=== PATIENT | female | born 1945 | race Caucasian/White ===

== ENCOUNTER 2020-04-16 09:18 | Inpatient (IN) ==
[2020-04-16] MEDS ORDERED: dilTIAZem HCl 5 MG/ML 5 ML VIAL IV STA ×2 (10:14→10:34)
[2020-04-16] MEDS ORDERED: STAT IV Infusion **Titration per Protocol STA (10:14)
[2020-04-16] MEDS ORDERED: dilTIAZem HCL 125 MG in DEXTROSE 5% 100 ML IV SCH ×2 (10:15→10:45)
[2020-04-16 10:36] LABS: Basophils # (auto) 0.03 K/uL (0-0.2); Basophils % (auto) 0.4 %; Eosinophils # (auto) 0.21 K/uL (0-0.5); Eosinophils % (auto) 2.5 %; Hematocrit (blood only) 40.5 % (37-47); Hemoglobin 13.4 g/dL (12.0-16.0); Immature Granulocytes # (auto) 0.02 K/uL (0.00-0.02); Immature Granulocytes % (auto) 0.2 %; Lymphocytes # (auto) 1.51 K/uL (1.2-3.4); Lymphocytes % (auto) 18.2 %; Mean Corpuscular Hemoglobin 31.6 pg (25-34); Mean Corpuscular Hgb Conc 33.1 g/dL (32-36); Mean Corpuscular Volume 95.5 fL (80-100); Mean Platelet Volume 10.3 fL (7.4-10.4); Monocytes # (auto) 0.81 K/uL (0.11-0.59); Monocytes % (auto) 9.8 %; Neutrophils # (auto) 5.72 K/uL (1.4-6.5); Neutrophils % (auto) 68.9 %; Platelet Count 292 K/uL (130-400); RDW Coefficient of Variation 13.4 % (11.5-14.5); RDW Standard Deviation 46.9 fL (36.4-46.3); Red Blood Count 4.24 M/uL (4.2-5.4)
[2020-04-16 10:44] LABS: Albumin Level 2.3 gm/dl (3.4-5.0); BUN Creatinine Ratio 25.7 (10-20); Calcium 8.5 mg/dl (8.5-10.1); Creatinine Clr Calc Pharmacy 54.3 ml/min; Est GFR (African American) 75.5; Est GFR (Non-African American) 65.2; Magnesium 1.9 mg/dl (1.8-2.4); Potassium 3.6 mmol/L (3.5-5.1)
[2020-04-16 10:55] LABS: Albumin Globulin Ratio 0.6 (0.9-2); Bilirubin,Total 0.3 mg/dl (0.2-1); Globulin 3.8 gm/dl (2.5-4.0); Thyroid Stimulating Hormone 7.03 uIu/ml (0.300-4.500); Total Protein 6.1 gm/dl (6.4-8.2); Troponin I 0.025 ng/ml (0-0.045)
[2020-04-16 11:12] LABS: T4 Free Thyroxine 1.17 ng/dl (0.8-1.6)
--- NOTE | 2020-04-16 11:26 | XRay Report ---
XR chest 1V portable HISTORY: 74 years-old Female palpitations, htn acute chest pain with cardiac palpitations COMPARISON: Chest radiograph 01/09/2020 TECHNIQUE: Portable AP view of the chest FINDINGS: Cardiomediastinal and hilar silhouettes are within normal limits. Small left pleural effusion with le ft lung base airspace opacities. No pneumothorax or overt pulmonary edema. The right lung is clear. D egenerative changes of the left shoulder and spine. IMPRESSION: Small left pleural effusion with left lung base airspace opacities suspicious for pneumon ia. ACT 112: Negative or not required by law. The above report was generated using voice recognition software. It may contain grammatical, syntax o r spelling errors. Electronically signed by: Nura Velarde M.D. 04/16/2020 11:24 AM
--- NOTE | 2020-04-16 12:02 | Electrocardiogram Report ---
Test Reason : Blood Pressure : / mmHG Vent. Rate : 118 BPM Atrial Rate : 120 BPM P-R Int : 000 ms QRS Dur : 086 ms QT Int : 310 ms P-R-T Axes : 000 038 021 degrees QTc Int : 434 ms Atrial fibrillation with rapid ventricular response Poor R wave progression, consider anterior UT vs. lead placement vs. LVH Abnormal ECG When compared with ECG of 09-JAN-2020 15:31, Atrial fibrillation has replaced Sinus rhythm Vent. rate has increased BY 59 BPM Nonspecific T wave abnormality now evident in Inferior leads Confirmed by Nehemiah Han ([id number]) on 04/16/2020 12:02:05 PM Referred By: REFERRED SELF Confirmed By:Nehemiah Han
--- NOTE | 2020-04-16 12:53 | Emergency Department Note ---
Impression & Plan Atrial fibrillation with rapid ventricular response, Hypertensive urgency ED Provider Note Provider: Elder Hudson MD DATE OF SERVICE:04/16/2020 CHIEF COMPLAINT: Hypertension, tachycardia HISTORY OF PRESENT ILLNESS: Patient is a 74-year-old female with a history of nephrotic syndrome and resistant hypertension with arthritis of the knees was planning to undergo replacement with noted hypertension and preop testing has been following with nephrology for this. States this morning she woke up and noted a pounding heartbeat and that her blood pressure was significantly elevated. Has been on and off multiple different blood pressure medicines attempting for control with questionable improvement. Patient denies chest pain or shortness of breath. States a little bit of pain in the back of the head but denies any numbness or weakness anywhere. Denies visual change. Denies any fall or lightheadedness. Denies abdominal discomfort. Patient states she did take her medications as directed. Denies any history of arrhythmia. Patient is not the best historian of her medications and only knows that she is on the medicines listed on her small piece of paper. REVIEW OF SYSTEMS: A total of 10 review of systems was obtained and negative except as stated above in the HPI. PAST MEDICAL HISTORY: As noted above MEDICATIONS: Reviewed home medications with the patient which she presents on a piece of paper. SOCIAL HISTORY: Lives at home with non-smoker PHYSICAL EXAM: GENERAL: alert and oriented in no acute distress on stretcher, somewhat anxious Head: normocephalic and atraumatic EYES: No injection, discharge or icterus. NECK: Trachea midline. LUNGS: Airway patent. No retractions. Breath sounds clear with good air entry bilaterally. HEART: Irregular tachycardic rate and rhythm. No chest wall tenderness ABDOMEN: Soft and non-tender, without guarding or rebound. SKIN: Acyanotic, warm, dry, without rashes EXTREMITIES: Without swelling, tenderness or deformity NEUROLOGICAL: No focal deficits. No aphasia. No facial droop or slurred speech. EK bpm appears to be atrial fibrillation with rapid ventricular response. No acute ST segment elevation is noted. Normal QTC. No acute PVC noted. CONTINUOUS CARDIAC MONITORING: was ordered and showed a heart rate of 110s -90s bpm in atrial fibrillation Patient's laboratory studies and imaging reviewed. Differential includes Premature contractions, electrolyte abnormality, cardiac dysrhythmia, thyroid dysfunction, pulmonary embolism, infection, gastrointestinal, as well as other pathologies. IMPRESSION/MEDICAL DECISION MAKING: Patient presents complaining of tachycardia and hypertension. Blood pressure significant elevated upon arrival here. Appears to be a new onset atrial fibrillation. Patient has no reported history. Not anticoagulated at home. Not having any focal deficit consistent with stroke at this time. Started on diltiazem bolus and drip with improvement of heart rate. Patient's basic blood work without evidence of leukocytosis or significant anemia. No significant electrolyte abnormality noted. Detectable not abnormal troponin likely secondary to her increased heart rate. Doubt acute ACS. No significant ST segment elevation noted on EKG. Free T4 is normal the TSH is slightly abnormal. X-ray questions possible small pleural effusion versus developing pneumonia the patient has no reported fevers or leukocytosis lower suspicion at this time for acute pneumonia. Not having significant infectious symptoms and lower suspicion for coronavirus at this point. Rapid coronavirus testing was ordered for admission. Discussed given her blood pressure which has gradually improved but with new onset atrial fibrillation currently diltiazem drip recommend further observation here in the hospital. Hospitalist was contacted. Question of some of her symptoms may provoked by her multiple different medication for blood pressure control she has been on including various points alpha blockers and beta-blockers. Will defer anticoagulation to the inpatient team. DIAGNOSIS: New onset atrial fibrillation with ventricular response, hypertensive urgency DISPOSITION: Hospitalist will evaluate Patient was agreeable with this plan. Critical Care I have personally spent 31 minutes of critical care time in the direct management of this patient. This includes bedside care, interpretation of diagnostic studies, and testing, discussion with consultants, patient, and family members, and other required patient management activities. These 31 minutes is in excess of all separately billable procedures. Past Med/Surg History Medical History (Updated 04/16/20 @ 13:15 by Jonatan Fontaine MD) Arthritis of knee, left Diastolic dysfunction Hypertension Nephrotic syndrome Positive RICARDO (antinuclear antibody) Proteinuria Resistant hypertension Surgical History History of dilatation and curettage Family History Mother Colorectal cancer, Onset Age: 87 Father , age 78 Hypertension Brother Heart disease Hypertension Denies family history of Ovarian cancer Prostate cancer Breast cancer Social History Smoking Status: Never smoker Second Hand Exposure: No; Hx Alcohol Use: No Hx Substance Use: No Preferred Language: Czech Communication Ability: Effective Manufacturing Area Manager Required: No Beliefs That Will Affect Care: None marital status: Current Living Situation: Spouse current occupational status: retired Other Information That Helps Us Care for You: No Feels Safe at Home: Yes Safety Concerns: Feels Safe At This Time Dental Care, Regularly: Yes Seatbelt Use: always Sunscreen Use: Yes Assistive Devices: Cane and Glasses Allergies Allergies Allergy/AdvReac Type Severity Reaction Status Date / Time No Known Drug Allergies Allergy Verified 04/16/20 10:38 Home Meds Home Medications Medication Instructions Recorded Confirmed lisinopril 40 mg PO QAM 01/04/20 04/16/20 multivitamin 1 tab PO QPM 01/04/20 04/16/20 Previous Rx's Medication Instructions Recorded spironolactone 50 mg tablet 50 mg PO DAILY #30 tab 02/24/20 betaxolol 10 mg tablet 5 mg PO DAILY #15 tab 04/12/20 doxazosin 1 mg tablet 1 mg PO DAILY #30 tab 04/12/20 furosemide 40 mg tablet 40 mg PO BID #60 tab 04/12/20 Results & Data (ED) Vital Signs Vital Signs - 24 hr 04/16/20 09:30 04/16/20 09:33 04/16/20 09:50 Temperature 36.8 C Temperature Source Oral Pulse Rate 115 H 112 H 108 H Pulse Rate from SpO2 Sensor 111 H 105 H Pulse Rhythm Irregular Irregular Pulse Strength Normal Respiratory Rate 16 20 20 Respiratory Effort / Characteristics Non-Labored Spontaneous Respiratory Depth Normal Respiratory Pattern Regular Blood Pressure 231/140 H 206/107 H Blood Pressure Mean 171 145 Blood Pressure Position Sitting Pulse Oximetry 96 96 95 Oxygen Delivery Method Room Air Room Air Sepsis Recent Fever Within 48 Hours No Sepsis New/Unexplained Change in Mental Status No Sepsis Action Taken by Nursing No Action Required 04/16/20 10:00 04/16/20 10:45 04/16/20 10:49 Temperature Temperature Source Pulse Rate 109 H 99 H 98 H Pulse Rate from SpO2 Sensor 101 H 94 H 103 H Pulse Rhythm Pulse Strength Respiratory Rate 12 17 16 Respiratory Effort / Characteristics Respiratory Depth Respiratory Pattern Blood Pressure 211/111 H 203/109 H Blood Pressure Mean 142 132 Blood Pressure Position Pulse Oximetry 95 97 97 Oxygen Delivery Method Sepsis Recent Fever Within 48 Hours Sepsis New/Unexplained Change in Mental Status Sepsis Action Taken by Nursing 04/16/20 11:00 04/16/20 11:15 04/16/20 11:30 Temperature Temperature Source Pulse Rate 91 H 94 H 87 Pulse Rate from SpO2 Sensor 90 93 H 90 Pulse Rhythm Pulse Strength Respiratory Rate 13 13 14 Respiratory Effort / Characteristics Respiratory Depth Respiratory Pattern Blood Pressure 189/99 H 190/109 H 185/98 H Blood Pressure Mean 102 134 127 Blood Pressure Position Pulse Oximetry 94 94 93 Oxygen Delivery Method Sepsis Recent Fever Within 48 Hours Sepsis New/Unexplained Change in Mental Status Sepsis Action Taken by Nursing 04/16/20 11:45 04/16/20 12:00 04/16/20 12:01 Temperature Temperature Source Pulse Rate 86 108 H 109 H Pulse Rate from SpO2 Sensor 85 111 H 108 H Pulse Rhythm Pulse Strength Respiratory Rate 17 17 12 Respiratory Effort / Characteristics Respiratory Depth Respiratory Pattern Blood Pressure 175/90 H 198/111 H Blood Pressure Mean 122 147 Blood Pressure Position Pulse Oximetry 94 96 97 Oxygen Delivery Method Sepsis Recent Fever Within 48 Hours Sepsis New/Unexplained Change in Mental Status Sepsis Action Taken by Nursing 04/16/20 12:15 04/16/20 12:30 04/16/20 12:45 Temperature Temperature Source Pulse Rate 95 H 101 H 104 H Pulse Rate from SpO2 Sensor 96 H 102 H 101 H Pulse Rhythm Pulse Strength Respiratory Rate 11 L 12 Respiratory Effort / Characteristics Respiratory Depth Respiratory Pattern Blood Pressure 184/106 H 193/99 H 210/108 H Blood Pressure Mean 119 119 133 Blood Pressure Position Pulse Oximetry 97 95 95 Oxygen Delivery Method Sepsis Recent Fever Within 48 Hours Sepsis New/Unexplained Change in Mental Status Sepsis Action Taken by Nursing Laboratory Data Result diagrams: 04/16/20 09:38 04/16/20 09:38 Lab Results 04/16/20 04/16/20 04/16/20 Range/Units 09:38 09:38 09:38 WBC 8.30 (4.8-10.8) K/uL RBC 4.24 (4.2-5.4) M/uL Hgb 13.4 (12.0-16.0) g/dL Hct 40.5 (37-47) % MCV 95.5 (80-100) fL MCH 31.6 (25-34) pg MCHC 33.1 (32-36) g/dL RDW Std Deviation 46.9 H (36.4-46.3) fL RDW Coeff of Tiana 13.4 (11.5-14.5) % Plt Count 292 (130-400) K/uL MPV 10.3 (7.4-10.4) fL Immature Gran % (Auto) 0.2 % Neut % (Auto) 68.9 % Lymph % (Auto) 18.2 % Sumner % (Auto) 9.8 % Eos % (Auto) 2.5 % Baso % (Auto) 0.4 % Neut # (Auto) 5.72 (1.4-6.5) K/uL Lymph # (Auto) 1.51 (1.2-3.4) K/uL Sumner # (Auto) 0.81 H (0.11-0.59) K/uL Eos # (Auto) 0.21 (0-0.5) K/uL Baso # (Auto) 0.03 (0-0.2) K/uL Immature Gran # (Auto) 0.02 (0.00-0.02) K/uL Sodium 141 (136-145) mmol/L Potassium 3.6 (3.5-5.1) mmol/L Chloride 105 (98-107) mmol/L Carbon Dioxide 31 (21-32) mmol/L Anion Gap 5.0 (3-11) BUN 22 H (7-18) mg/dl Creatinine 0.87 (0.6-1.2) mg/dl Est Cr Clr Drug Dosing 54.3 ml/min Est GFR ( Amer) 75.5 Est GFR (Non-Af Amer) 65.2 BUN/Creatinine Ratio 25.7 H (10-20) Glucose 99 (70-99) mg/dl Calcium 8.5 (8.5-10.1) mg/dl Magnesium 1.9 (1.8-2.4) mg/dl Total Bilirubin 0.3 (0.2-1) mg/dl AST 30 (15-37) U/L ALT 29 (12-78) U/L Alkaline Phosphatase 94 (45-117) U/L Troponin I 0.025 (0-0.045) ng/ml Total Protein 6.1 L (6.4-8.2) gm/dl Albumin 2.3 L (3.4-5.0) gm/dl Globulin 3.8 (2.5-4.0) gm/dl Albumin/Globulin Ratio 0.6 L (0.9-2) Procalcitonin < 0.05 (0-0.5) ng/ml TSH 7.030 H (0.300-4.500) uIu/ml Free T4 1.17 (0.8-1.6) ng/dl Administered Medications Diltiazem HCl 125 mg/ Dextrose 125 mls @ 10 mls/hr IV .[id number] TORITO; Protocol Stop: 05/16/20 10:44 Last Titration: 04/16/20 14:00 Dose: 10 mg/hr, 10 mls/hr Documented by: [id number] Cosigned by: [id number] Admin: 04/16/20 10:47 Dose: 5 mg/hr, 5 mls/hr Documented by: [id number] Cosigned by: [id number] Discontinued Medications Diltiazem HCl (Diltiazem Hcl 5 Mg/Ml 5 Ml Vial) 10 mg IV NOW STA Stop: 04/16/20 10:35 Last Admin: 04/16/20 10:47 Dose: 10 mg Documented by: [id number] Cosigned by: [id number] Ioversol (Ioversol 100ml) 94 ml IV ONCE ONE Stop: 04/16/20 15:09 Last Admin: 04/16/20 15:08 Dose: 94 ml Documented by: [id number] Discharge Plan Visit Data Chief Complaint: Cardiac Assessment Stated Complaint: HYPERTENSION,TACHYCARDIA ED Provider: Elder Hudson Discharge Problem: Atrial fibrillation with rapid ventricular response, Hypertensive urgency Patient Disposition: Being Evaluated by Hospitalist
--- NOTE | 2020-04-16 13:07 | History & Physical Report ---
Date of Service April 16, 2020 Assessment & Plan (1) Atrial fibrillation with rapid ventricular response: Wean diltiazem IV drip. Start metoprolol 25mg QID for rate control with hold parameters. Consult nephrology for advice on rate controlling medication with resistant hypertension workup as below - recently switched from labetalol to betaxolol but not yet taking the betaxolol per patient list. TSH elevated but free T4 normal TTE pending Anticoagulation with Eliquis 5 mg p.o. twice daily (2) Hypertensive urgency: Patient did not take her usual medications this morning. We will give these now in addition to metoprolol as above. Continue on recently increased dose of Lasix 40 mg p.o. twice daily with additional doses as necessary given hypervolemic state. Consult nephrology given confusion with current medication regimen. 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 Mild cough for the last week but otherwise a symptomatic for pneumonia (cough worse on lying down). No fevers or chills. 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 Admission and Anticipated Discharge Date Admission Date: 04/16/2020 History of Present Illness Chief Complaint: Elevated heart rate and palpitations Primary Care Provider: Tiff Montero DO Peri Arredondo is a 74-year-old female who presents to the ER with rapid heart rate. She reports waking up this morning feeling palpitations when walking to the bathroom. Her checked her pulse with a monitor and it was fast therefore she came to the ER. She denies any chest pain. Mild shortness of breath especially while lying flat. No PND, claudication. She reports feeling her normal self yesterday, although does note increased leg swelling over the last 2 months. She has ongoing work-up for nephrotic syndrome (suspected membranous nephropathy per recent lab work) and resistant hypertension under Dr. hSepard. Most recently she was started on doxazosin 3 days ago and I suspect switch from labetalol to betaxolol although have no documentation regarding this. Her reports a medication not being available at the pharmacy which I assume to be due to betaxolol given this is not on the patient's recent hand written medication list. I suspect she stopped the labetalol and started doxazosin likely increasing risk of recurrent atrial fibrillation with rebound tachycardia. In the ER chest x-ray concerning for left-sided pleural effusion and EKG showing atrial fibrillation. Allergies Allergy/AdvReac Type Severity Reaction Status Date / Time No Known Drug Allergies Allergy Verified 04/16/20 10:38 Home Medications Medication Instructions Recorded Confirmed Type lisinopril 40 mg PO QAM 01/04/20 04/16/20 History multivitamin 1 tab PO QPM 01/04/20 04/16/20 History spironolactone 50 mg tablet 50 mg PO DAILY #30 tab 02/24/20 04/16/20 Rx betaxolol 10 mg tablet 5 mg PO DAILY #15 tab 04/12/20 04/16/20 Rx doxazosin 1 mg tablet 1 mg PO DAILY #30 tab 04/12/20 04/16/20 Rx furosemide 40 mg tablet 40 mg PO BID #60 tab 04/12/20 04/16/20 Rx Past Med/Surg History Medical History Arthritis of knee, left Diastolic dysfunction Hypertension Membranous nephritis Nephrotic syndrome Positive RICARDO (antinuclear antibody) Proteinuria Resistant hypertension Surgical History History of dilatation and curettage Family History Mother Colorectal cancer, Onset Age: 87 Father , age 78 Hypertension Brother Heart disease Hypertension Denies family history of Ovarian cancer Prostate cancer Breast cancer Social History Smoking Status: Never smoker Second Hand Exposure: No; Hx Alcohol Use: No Hx Substance Use: No Preferred Language: Tristanian Communication Ability: Effective Borough Coordinator Required: No Beliefs That Will Affect Care: None marital status: Current Living Situation: Spouse current occupational status: retired Feels Safe at Home: Yes Dental Care, Regularly: Yes Seatbelt Use: always Sunscreen Use: Yes Assistive Devices: None Review of Systems Review of Systems: All systems reviewed & are unremarkable except as noted in HPI & below Respiratory: + cough (Dry for 1 week) Physical Exam Constitutional: well developed and well nourished; no acute distress Eyes: + anicteric sclerae; normal pupil size ENMT: external ear and nose normal, oropharynx normal Neck: normal visual inspection and trachea midline Respiratory: normal respiratory effort; no respiratory distress Auscultation: + crackles (Bibasal); no diminished lung sounds and no wheezes Cardiovascular: Rate/Rhythm: + irregularly irregular Heart Sounds: no murmur Vessels: no JVD Extremities: normal capillary refill and + pedal edema (2+ to mid thighs bilaterally equal); no calf tenderness Gastrointestinal (Abdomen): normal bowel sounds, soft, nontender, no hepatosplenomegaly Musculoskeletal: no cyanosis or clubbing, extremities motor strength 5/5 Skin: no rashes, warm and dry Neurologic: moves all extremities and awake; no focal motor deficits and not confused Psychiatric: A+Ox3, euthymic affect Results & Data Results & Data ([facility]) Vital Signs (Past 12 Hours) Vital Signs Temp Pulse Resp BP Pulse Ox 04/16/20 11:45 86 17 175/90 H 94 04/16/20 11:30 87 14 185/98 H 93 04/16/20 11:15 94 H 13 190/109 H 94 04/16/20 11:00 91 H 13 189/99 H 94 04/16/20 10:49 98 H 16 203/109 H 97 04/16/20 10:45 99 H 17 97 04/16/20 10:00 109 H 12 211/111 H 95 04/16/20 09:50 108 H 20 206/107 H 95 04/16/20 09:33 112 H 20 96 04/16/20 09:30 36.8 C 115 H 16 231/140 H 96 Diagnostic Findings XR chest 1V portable IMPRESSION: Small left pleural effusion with left lung base airspace opacities suspicious for pneumonia. Medications Administered ER medications given: Diltiazem 10 mg IV x2, diltiazem IV drip @ 5 mg/hr ECG Indication: tachycardia Rate (beats per minute): 118 Rhythm: atrial fibrillation Findings: no acute ischemic change Comparison ECG Date: from (January 09, 2020) Change: the following changes noted (Atrial fibrillation replaced sinus rhythm) Code Status & VTE Plan Code Status Full VTE Prophylaxis Plan VTE Prophylaxis will be ordered: Yes PG Care Time/CCT Total # of Minutes Spent Total Time Spent with Patient: Total time spent is greater than 50% in coordination of care (as documented) at patient's floor/unit and/or counseling patient: Coding Level of Care Code 94512 Initial Inpt Care Lvl 3 Diagnoses Atrial fibrillation with rapid ventricular response I48.91 Hypertensive urgency I16.0 Nephrotic syndrome N04.9 Pleural effusion, left J90
[2020-04-16] MEDS ORDERED: IOVERSOL 100ml IV ONE (15:08)
[2020-04-16] MEDS ORDERED: HEPARIN SODIUM/DEXTROSE 25,000 UNITS/500 ML BAG IV SCH (15:27)
--- NOTE | 2020-04-16 15:31 | CT Scan Report ---
CT abd pelvis IV con only CLINICAL HISTORY: Membranous nephropathy, assess for malignancy COMPARISON STUDY: None. TECHNIQUE: Patient was scanned in a dynamic helical fashion during intravenous and ministration of 94 cc of Optiray 320. A dose lowering technique was utilized adhering to the principles of ALARA. CT DOSE: FINDINGS: Lower chest: There are small bilateral pleural effusions with associated basilar opacities, likely at electatic Liver: The contrast-enhanced liver is normal in size, contour, and attenuation. There is no intrahepa tic biliary ductal dilatation. The hepatic veins and portal veins are patent. Gallbladder: Unremarkable. Spleen: Normal in size and attenuation. Pancreas: Unremarkable. Adrenal glands: Unremarkable. Kidneys: There is symmetric renal cortical enhancement. The kidneys are normal in size without hydron ephrosis. Bowel: There are no transition zones to indicate bowel obstruction. There is no evidence of acute div erticulitis. There are no findings to indicate acute appendicitis. Appendiceal evaluation is limited due to the lack of oral contrast and paucity of fat in the pericecal region. Peritoneum: There is minimal free pelvic fluid Vasculature: The abdominal aorta is normal in course and caliber. Adenopathy: There are borderline enlarged para-aortic lymph nodes. There are several mesenteric lymph nodes at the upper limits of normal in size. Pelvic viscera: There is a 4.8 cm right adnexal cyst likely ovarian. There is a [address] mm left ovarian [address]. Skeletal structures: No destructive osseous lesions are seen. IMPRESSION: 1. No evidence of bowel obstruction. No evidence of free air 2. No acute inflammatory changes 3. Small bilateral pleural effusions 4. Borderline enlarged para-aortic lymph nodes. Mesenteric lymph nodes are the upper limits of normal in size. 5. 48 mm right adnexal cyst, likely ovarian. Nonemergent ultrasonography is recommended in follow-up. ACT 112: Positive. There are findings on this exam that require communication between the performing entity and the patient following Patient Test Result Information Act ([place] Act 112) guidelines. Electronically signed by: Klaus Huerta M.D. 04/16/2020 3:30 PM
--- NOTE | 2020-04-16 15:31 | CT Scan Report ---
CT OF THE CHEST WITH IV CONTRAST CLINICAL HISTORY: Left pleural effusion, membranous nephropathy. Assess for malignancy. COMPARISON STUDY: Chest radiograph April 16, 2020. TECHNIQUE: Following IV administration of 94 mL of Optiray-320, helical axial images of the chest we re obtained. Sagittal and coronal reconstructions were viewed as well as maximal intensity projectio ns on an independent 3-D workstation. Automated exposure control was utilized for the study. A dose lowering technique was utilized adhering to the principles of ALARA. CT DOSE: 585.73 mGy.cm FINDINGS: No enlarged axillary, mediastinal or hilar lymph nodes are present. Size of the heart is n ormal. There is no pericardial effusion. Note is made of anasarca. There is no pneumothorax. There ar e small bilateral pleural effusions. Associated lower lobe opacities favor atelectasis. There is an i ndeterminate 1.2 cm groundglass focus within the right lower lobe on image 189 of 311. The central ai rways are patent. Interlobular septal thickening represents mild pulmonary edema. No suspicious lesio ns within the bony thorax are noted. The abdomen and pelvis will be reported separately. A 1.4 cm hyp ervascular lateral segment hepatic lesion favors a hemangioma. IMPRESSION: 1. No convincing evidence for malignancy within the chest. 2. 1.2 cm groundglass opacity within the right lower lobe. Although indeterminate, this is not highly suspicious. A follow-up chest CT in 3 months to ensure resolution is recommended. 3. Small bilateral pleural effusions with associated airspace opacities that favor atelectasis. 4. Mild interstitial pulmonary edema. ACT 112: Negative or not required by law. Electronically signed by: Nestor Leone M.D. 04/16/2020 3:29 PM
[2020-04-16] MEDS ORDERED: DOXAZOSIN MESYLATE 1 MG TAB PO ONE (15:35)
[2020-04-16] MEDS ORDERED: Heparin IV Standard *NO* Bolus IV SCH (15:40)
--- NOTE | 2020-04-16 16:31 | XCELERA ---
[id number]
[2020-04-16] MEDS: FUROSEMIDE 40 MG TAB PO SCH (17:15)
[2020-04-16] MEDS: METOPROLOL TARTRATE 25 MG TAB PO SCH ×2 (17:15→21:11)
[2020-04-16] MEDS ORDERED: POTASSIUM CHLORIDE CRTAB 20 MEQ TABCR PO STA (18:04)
[2020-04-16] MEDS ORDERED: FUROSEMIDE 20 MG in SYRINGE 0 ML IV ONE (18:15)
--- NOTE | 2020-04-16 19:48 | Nephrology Consultation ---
Date of Consultation April 16, 2020 Assessment & Plan (1) Membranous nephritis: Peri admitted to the hospital with hypertensive urgency and AFib with RVR. Initially started on diltiazem but heart rate dropped to 50s and diltiazem was stopped. She spontaneously converted to sinus rhythm. Blood pressure still remained elevated. 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 Workup also revealed positive RICARDO. -- Continue on Lasix 40 b.i.d., lisinopril 40, doxazosin, increase spironolactone to 100, continue metoprolol and increase dose as needed. -- As PLA2 strongly positive, we can consider starting on therapy without biopsy. Discussed with patient and her Daron ( [phone] )and explained the indication for treatment, expected outcome without treatment as well as side effect with Rituximab. Patient has been both agreeable to start on Rituximab. Will give 1 gram on day 1 and 15, 1st dose tomorrow -- start on Eliquis due to high risk for thromboembolic event considering significant hypoalbuminemia and membranous nephropathy -- repeat RICARDO and check DS DNA, complements Will follow Thank you for allowing me to participate in your patient's care. It was a pleasure to see Peri (2) Nephrotic syndrome: (3) Positive RICARDO (antinuclear antibody): (4) Resistant hypertension: (5) Bilateral lower extremity edema: (6) Atrial fibrillation with rapid ventricular response: (7) Hypertensive urgency: History of Present Illness Attending Physician: Jonatan Fontaine MD History of Present Illness Peri Arredondo is a 74-year-old female with recent diagnosis of nephrotic syndrome and resistant hypertension admitted to the hospital with hypertensive urgency and AFib with RVR. Nephrology consult was requested to manage hypertension as well as nephrotic syndrome. Electronic medical records are reviewed in detail during patient's visit. Peri presented to the hospital this morning with hypertensive urgency with SBP >200 and DBP > 100 and palpitation. she was initially started on diltiazem 3 with that she converted to sinus rhythm and heart rate dropped to 50s and diltiazem was stopped. Currently she is on metoprolol 25 q.i.d. chest x-ray showed pulmonary congestion and pleural effusion. CT C/A/P with contrast was negative for any underlying malignancy, found to have anasarca. kidney and adrenal gland was unremarkable. Blood pressure still remained elevated however she is overall feeling better. Peri has hypertension for >10 years, blood pressure has always been difficult to control. Recently she was evaluated for Resistant Hypertension and significant lower extremity edema. She was started on labetalol and Lasix however her crit dropped to 50s but blood pressure remains poorly controlled. A week ago labetalol was stopped and she was started on Betaxolol and Doxazosin however she received only Doxazosin. As blood pressure remained elevated she had workup for secondary hypertension. No h/o CKD, b/l cr 0.8-0.9. She was found to have high-grade proteinuria, 4+ on UA, with microscopic hematuria, no pyuria., 3.8 g of proteinuria in 24 hour urine. Renal artery Doppler in July 2019 showed no hemodynamically significant renal artery stenosis, kidneys are normal in size and echogenicity. Random cor tisol, aldosterone, renin was normal. Plasma metanephrine was elevated more than twice normal, total metanephrine 486 (<205), metanephrine 100 ( <57), normetanephrine 386 ( <148) however 24 hour urine metanephrine was normal. As part of evaluation she was also found to have elevated RICARDO and markedly elevated PLA2RA. No hypokalemia / hyperkalemia or acid base abnormality. Nonsmoker, does not drink alcohol. Has F/H of HTN. Denies regular NSAID use.. No history of sleep apnea. No change in weight. Tries to limit salt in diet. And overall eat healthy. Stays relatively active but no regular exercise. , lives at home with Daron , has 2 grown-up daughter. No history of coronary artery disease, diabetes. She has DJD of bilateral knee and recently she was planned for knee replacement surgery which was postponed because of elevated blood pressure and significant lower extremity edema. Currently she is otherwise asymptomatic, denies headache, visual changes, chest pain, shortness of breath. Allergies Allergy/AdvReac Type Severity Reaction Status Date / Time No Known Drug Allergies Allergy Verified 04/16/20 10:38 Home Medications Medication Instructions Recorded Confirmed Type lisinopril 40 mg PO QAM 01/04/20 04/16/20 History multivitamin 1 tab PO QPM 01/04/20 04/16/20 History spironolactone 50 mg tablet 50 mg PO DAILY #30 tab 02/24/20 04/16/20 Rx betaxolol 10 mg tablet 5 mg PO DAILY #15 tab 04/12/20 04/16/20 Rx doxazosin 1 mg tablet 1 mg PO DAILY #30 tab 04/12/20 04/16/20 Rx furosemide 40 mg tablet 40 mg PO BID #60 tab 04/12/20 04/16/20 Rx Patient History Medical History (Updated 04/16/20 @ 20:05 by Juliann Shepard MD) Arthritis of knee, left Diastolic dysfunction Hypertension Membranous nephritis Nephrotic syndrome Positive RICARDO (antinuclear antibody) Proteinuria Resistant hypertension Surgical History History of dilatation and curettage Family History Mother Colorectal cancer, Onset Age: 87 Father , age 78 Hypertension Brother Heart disease Hypertension Denies family history of Ovarian cancer Prostate cancer Breast cancer Social History Smoking Status: Never smoker Second Hand Exposure: No; Hx Alcohol Use: No Hx Substance Use: No Preferred Language: Hebrew Communication Ability: Effective Snack Steward Required: No Beliefs That Will Affect Care: None marital status: Current Living Situation: Spouse current occupational status: retired Other Information That Helps Us Care for You: No Feels Safe at Home: Yes Safety Concerns: Feels Safe At This Time Dental Care, Regularly: Yes Seatbelt Use: always Sunscreen Use: Yes Assistive Devices: Cane and Glasses Review of Systems Review of Systems: All systems reviewed & are unremarkable except as noted in HPI & below Physical Exam Constitutional: WD/WN, vitals as above no acute distress and not ill appearing Eyes: PERRL, conjunctivae normal, anicteric sclerae ENMT: external ear and nose normal, oropharynx normal Ears: no hearing impairment Neck: trachea midline Respiratory: normal respiratory effort, lungs clear to auscultation no c ough Auscultation: no crackles, no rales and no wheezes Cardiovascular: Rate/Rhythm: regular rhythm and + tachycardic Heart Sounds: normal S1 and normal S2 Extremities: + edema (B/L LE 2 to 3 + edema) Gastrointestinal (Abdomen): normal bowel sounds, soft, nontender, no hepatosplenomegaly Percussion/Palpation: abdomen nontender, no guarding and abdomen not rigid Musculoskeletal: Extremities: extremities normal to inspection Gait: normal gait Skin: no rashes, warm and dry Neurologic: moves all extremities and awake; no focal motor deficits and not confused Psychiatric: A+Ox3, euthymic affect Results & Data ([facility]) Vital Signs (Past 12 Hours) Vital Signs Temp Pulse Pulse Resp BP BP Pulse Ox 04/16/20 16:04 36.3 C L 98 H 18 187/96 H 95 04/16/20 15:50 91 H 04/16/20 14:45 84 13 174/97 H 93 04/16/20 14:30 79 13 170/93 H 93 04/16/20 14:15 90 195/96 H 94 04/16/20 14:00 88 12 199/102 H 94 04/16/20 13:45 97 H 12 204/113 H 96 04/16/20 13:30 106 H 16 185/107 H 95 04/16/20 13:16 92 H 19 197/90 H 92 04/16/20 13:15 89 15 95 04/16/20 13:00 85 11 L 172/102 H 94 04/16/20 12:45 104 H 210/108 H 95 04/16/20 12:30 101 H 12 193/99 H 95 04/16/20 12:15 95 H 11 L 184/106 H 97 04/16/20 12:01 109 H 12 198/111 H 97 04/16/20 12:00 108 H 17 96 04/16/20 11:45 86 17 175/90 H 94 04/16/20 11:30 87 14 185/98 H 93 04/16/20 11:15 94 H 13 190/109 H 94 04/16/20 11:00 91 H 13 189/99 H 94 04/16/20 10:49 98 H 16 203/109 H 97 04/16/20 10:45 99 H 17 97 04/16/20 10:00 109 H 12 211/111 H 95 04/16/20 09:50 108 H 20 206/107 H 95 04/16/20 09:33 112 H 20 96 04/16/20 09:30 36.8 C 115 H 16 231/140 H 96 PG Care Time/CCT Total # of Minutes Spent Total Time Spent with Patient: Total time spent is greater than 50% in coordination of care (as documented) at patient's floor/unit and/or counseling patient: Coding Level of Care Code 56751 Inpt Consult Level 5 Diagnoses Membranous nephritis N05.2 Nephrotic syndrome N04.9 Positive RICARDO (antinuclear antibody) R76.8 Resistant hypertension I10 Bilateral lower extremity edema R60.0 Atrial fibrillation with rapid ventricular response I48.91 Hypertensive urgency I16.0
[2020-04-16] MEDS: APIXABAN 5 MG TABLET PO SCH (21:05)
[2020-04-16] MEDS: MULTIVITAMIN TAB PO SCH (21:11)
[2020-04-17 06:05] LABS: Basophils # (auto) 0.02 K/uL (0-0.2); Basophils % (auto) 0.3 %; Eosinophils # (auto) 0.25 K/uL (0-0.5); Eosinophils % (auto) 4.4 %; Hematocrit (blood only) 33.3 % (37-47); Hemoglobin 10.8 g/dL (12.0-16.0); Lymphocytes # (auto) 1.52 K/uL (1.2-3.4); Lymphocytes % (auto) 26.5 %; Mean Corpuscular Hemoglobin 30.8 pg (25-34); Mean Corpuscular Hgb Conc 32.4 g/dL (32-36); Mean Corpuscular Volume 94.9 fL (80-100); Mean Platelet Volume 9.7 fL (7.4-10.4); Monocytes # (auto) 0.67 K/uL (0.11-0.59); Monocytes % (auto) 11.7 %; Neutrophils # (auto) 3.28 K/uL (1.4-6.5); Neutrophils % (auto) 57.1 %; Platelet Count 228 K/uL (130-400); RDW Coefficient of Variation 13.5 % (11.5-14.5); RDW Standard Deviation 46.8 fL (36.4-46.3); Red Blood Count 3.51 M/uL (4.2-5.4); White Blood Count 5.74 K/uL (4.8-10.8)
[2020-04-17 06:44] LABS: BUN Creatinine Ratio 22.5 (10-20); Creatinine Clr Calc Pharmacy 38.1 ml/min; Est GFR (African American) 49.2; Est GFR (Non-African American) 42.5; Potassium 3.8 mmol/L (3.5-5.1)
--- NOTE | 2020-04-17 07:57 | Nephrology Progress Note ---
Date of Service April 17, 2020 Assessment & Plan (1) Membranous nephritis: Peri admitted to the hospital with hypertensive urgency and AFib with RVR. Initially started on diltiazem but heart rate dropped to 50s and diltiazem was stopped. She spontaneously converted to sinus rhythm. Blood pressure still remained elevated. 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 Workup also revealed positive RICARDO. Lab this am showed FEI with cr 1.3, b/l cr 0.8 to 0.9 --start first dose of Rituximab 1 gm today, second dose of 1 gm on day 15 --increase doxazosin to 2 mg/d --Continue on Lasix 40 b.i.d., lisinopril 40, spironolactone 100, continue metoprolol --Discussed with patient's Daron ) yesterday. --continue on Eliquis due to high risk for thromboembolic event considering significant hypoalbuminemia and membranous nephropathy --although pt is anxious to be Dced, with BP still significantly elevated and FEI on lab today, would hold DC today. Will follow. (2) Nephrotic syndrome: (3) Positive RICARDO (antinuclear antibody): (4) Resistant hypertension: (5) Bilateral lower extremity edema: (6) Atrial fibrillation with rapid ventricular response: (7) Hypertensive urgency: Admission and Anticipated Discharge Date Admission Date: April 16, 2020 Subjective Peri was seen and examined this morning. Overall doing well but anxious and tearful as she is overwhelmed with hospitalization and current different health issues and possibility that she may not get discharged today. BP slightly improved but still above goal. Lab showing FEI with cr 1.3. Review of Systems Review of Systems: All systems reviewed & are unremarkable except as noted in Subjective Physical Exam Constitutional: no acute distress Respiratory: normal respiratory effort, lungs clear to auscultation Cardiovascular: Rate/Rhythm: regular rate, regular rhythm and + bradycardic Extremities: + edema Skin: no rashes, warm and dry Neurologic: no focal motor deficits and not confused Psychiatric: Orientation: alert and oriented x 3 Affect: + anxious affect and + tearful affect Results & Data ([facility]) Vital Signs (Past 12 Hours) Vital Signs Temp Pulse Resp BP BP Pulse Ox 04/17/20 07:10 36.8 C 53 L 18 183/72 H 93 04/17/20 04:03 36.7 C 57 L 18 161/66 H 92 04/16/20 23:45 36.9 C 54 L 20 161/70 H 94 04/16/20 20:34 36.9 C 46 L 18 138/61 95 PG Care Time/CCT Total # of Minutes Spent Total Time Spent with Patient: Total time spent is greater than 50% in coordination of care (as documented) at patient's floor/unit and/or counseling patient: Coding Level of Care Code 72429 Subseq Hosp Care Lvl 3 Diagnoses Membranous nephritis N05.2 Nephrotic syndrome N04.9 Positive RICARDO (antinuclear antibody) R76.8 Resistant hypertension I10 Bilateral lower extremity edema R60.0 Atrial fibrillation with rapid ventricular response I48.91 Hypertensive urgency I16.0
[2020-04-17] MEDS ORDERED: methylPREDNISolone 50 MG in SYRINGE 0 ML IV ONE (08:30)
[2020-04-17] MEDS ORDERED: Pre-Med DiphenhydrAMINE 25 MG CAP PO SCH (08:30)
[2020-04-17] MEDS ORDERED: Pre-Med ACETAMINOPHEN 325 MG TAB PO ONE (08:30)
[2020-04-17] MEDS ORDERED: Pre-Med DiphenhydrAMINE 25 MG CAP PO ONE (08:30)
[2020-04-17] MEDS: lisinopril 40 MG TAB PO SCH (08:37)
[2020-04-17] MEDS: SPIRONOLACTONE 100 MG TAB PO SCH (08:37)
[2020-04-17] MEDS: FUROSEMIDE 40 MG TAB PO SCH ×2 (08:37→16:50)
[2020-04-17] MEDS: APIXABAN 5 MG TABLET PO SCH ×2 (08:37→20:27)
[2020-04-17] MEDS: METOPROLOL TARTRATE 25 MG TAB PO SCH ×4 (08:38→20:27)
[2020-04-17] MEDS ORDERED: DOXAZOSIN MESYLATE 1 MG TAB PO SCH (09:00)
[2020-04-17] MEDS ORDERED: SPIRONOLACTONE 25 MG TAB PO SCH (09:00)
[2020-04-17] MEDS ORDERED: diphenhydrAMINE 50 MG/ML VIAL IV ONE (11:52)
[2020-04-17] MEDS ORDERED: ACETAMINOPHEN 325 MG TAB PO ONE (11:52)
--- NOTE | 2020-04-17 13:14 | Hospitalist Progress Note ---
Date of Service April 17, 2020 Assessment & Plan (1) Hypertensive urgency: Peri Arredondo is a 74y/o F with PMH significant for unknown nephrotic syndrome, resistant hypertension, and atrial fibrillation; who presented for concern of elevated blood pressures with palpitations, and headaches. Hypertensive urgency: - patient home regimen of Lasix 40mg BID, Lisinopril 40mg daily, Spironolactone 50mg, and Doxazosin 1mg; previously having difficulty controlling blood pressure as outpatient according to continued monitoring reports from patients log which demonstrates raising BP over the last several weeks - nephrology consulted: initiated Rituximab for con-comitant nephrotic syndrome - continue Lasix 40mg BID, Lisinopril 40mg daily, Spironolactone 100mg, and Metoprolol - increase doxazosin to 2mg daily - patient continuing to have SBP>180 despite above - patient appropriately not regularly receiving Metoprolol due to low HR - added Norvasc 5mg daily scheduled, and Hydralazine 10mg Q4h PRN Nephrotic syndrome: - patient with history of undifferentiated nephrotic syndrome - Nephrology consulted: initiated rituximab therapy today with pretreatment Atrial fibrillation with RVR: - converted to regular rate following initiation of diltiazem, however HR dropped to low shortly after initiation causing it to be stopped - continue Eliquis Acute Kidney Injury: - Cr on admission 0.87, with raise to 1.24 this am - continue to monitor; consider alterations to HTN regimen to limit nephrotoxins if this continues (2) Nephrotic syndrome: (3) Bilateral lower extremity edema: (4) Resistant hypertension: (5) Atrial fibrillation with rapid ventricular response: Admission and Anticipated Discharge Date Admission Date: April 16, 2020 Supervising Physician Co-Signing Physician Notes I personally examined the patient and verified all shaw points of history and exam, discussed case, and agree with decision making with Dr Monique. feeling ok - just waiting on bed transfer for starting rituxin. no acute complaints when i see her. nephro input appreciated vitals noted nad heent nc at mmm breathing unlabored no accessory msucles good effort skin no rashes no pallor or icterus nephrotic syndrome/uncontrolled HTN - rituxin started by nephro, follow. ongoing titration of bp control new onset afib/rvr - rates now good, echo overall ok. continue current. otherwise as above Subjective Patient continues to feel relatively unwell, and continues to not feel her blood pressure being elevated. Denies headaches, changes in vision, palpitations, chest pressure, chest pain, abdominal discomfort, nausea, vomiting. Endorses a considerable amount of anxiety over the overall hectic-ness that has been being admitted to the hospital. Review of Systems Review of Systems: All systems reviewed & are unremarkable except as noted in Subjective Physical Exam Constitutional: WD/WN, vitals as above Eyes: PERRL, conjunctivae normal, anicteric sclerae Respiratory: normal respiratory effort, lungs clear to auscultation Cardiovascular: Rate/Rhythm: regular rate and regular rhythm Heart Sounds: no gallop, no murmur and no cardiac rub Vessels: normal peripheral pulses Extremities: + pedal edema (1+); no calf tenderness Gastrointestinal (Abdomen): normal bowel sounds, soft, nontender, no hepatosplenomegaly Skin: no rashes, warm and dry Neurologic: normal touch/pain/proprioception and moves all extremities Psychiatric: Orientation: alert and oriented x 3 Affect: + anxious affect Results & Data Results & Data ([facility]) Vital Signs (Past 12 Hours) Vital Signs Temp Pulse Pulse Resp BP BP Pulse Ox 04/17/20 12:33 67 04/17/20 12:24 36.6 C 57 L 20 192/75 H 94 04/17/20 11:23 36.7 C 55 L 18 177/68 H 91 04/17/20 10:03 168/67 H 04/17/20 08:00 52 L 04/17/20 07:10 36.8 C 53 L 18 183/72 H 93 04/17/20 04:03 36.7 C 57 L 18 161/66 H 92 Laboratory Results 04/17/20 04/17/20 04/16/20 Range/Units 05:50 05:50 14:39 WBC 5.74 (4.8-10.8) K/uL RBC 3.51 L (4.2-5.4) M/uL Hgb 10.8 L (12.0-16.0) g/dL Hct 33.3 L (37-47) % MCV 94.9 (80-100) fL MCH 30.8 (25-34) pg MCHC 32.4 (32-36) g/dL RDW Std Deviation 46.8 H (36.4-46.3) fL RDW Coeff of Tiana 13.5 (11.5-14.5) % Plt Count 228 (130-400) K/uL MPV 9.7 (7.4-10.4) fL Immature Gran % (Auto) 0.0 % Neut % (Auto) 57.1 % Lymph % (Auto) 26.5 % Buchanan % (Auto) 11.7 % Eos % (Auto) 4.4 % Baso % (Auto) 0.3 % Neut # (Auto) 3.28 (1.4-6.5) K/uL Lymph # (Auto) 1.52 (1.2-3.4) K/uL Buchanan # (Auto) 0.67 H (0.11-0.59) K/uL Eos # (Auto) 0.25 (0-0.5) K/uL Baso # (Auto) 0.02 (0-0.2) K/uL Immature Gran # (Auto) 0.00 (0.00-0.02) K/uL Sodium 142 (136-145) mmol/L Potassium 3.8 (3.5-5.1) mmol/L Chloride 108 H (98-107) mmol/L Carbon Dioxide 28 (21-32) mmol/L Anion Gap 6.0 (3-11) BUN 28 H (7-18) mg/dl Creatinine 1.24 H D (0.6-1.2) mg/dl Est Cr Clr Drug Dosing 38.1 ml/min Est GFR ( Amer) 49.2 Est GFR (Non-Af Amer) 42.5 BUN/Creatinine Ratio 22.5 H (10-20) Glucose 86 (70-99) mg/dl Calcium 8.0 L (8.5-10.1) mg/dl Procalcitonin (0-0.5) ng/ml Double Strand DNA Ab SARS-CoV-2 Ag (Rapid) Negative (Negative) 04/16/20 04/16/20 Range/Units 09:38 09:38 WBC (4.8-10.8) K/uL RBC (4.2-5.4) M/uL Hgb (12.0-16.0) g/dL Hct (37-47) % MCV (80-100) fL MCH (25-34) pg MCHC (32-36) g/dL RDW Std Deviation (36.4-46.3) fL RDW Coeff of Tiana (11.5-14.5) % Plt Count (130-400) K/uL MPV (7.4-10.4) fL Immature Gran % (Auto) % Neut % (Auto) % Lymph % (Auto) % Buchanan % (Auto) % Eos % (Auto) % Baso % (Auto) % Neut # (Auto) (1.4-6.5) K/uL Lymph # (Auto) (1.2-3.4) K/uL Buchanan # (Auto) (0.11-0.59) K/uL Eos # (Auto) (0-0.5) K/uL Baso # (Auto) (0-0.2) K/uL Immature Gran # (Auto) (0.00-0.02) K/uL Sodium (136-145) mmol/L Potassium (3.5-5.1) mmol/L Chloride (98-107) mmol/L Carbon Dioxide (21-32) mmol/L Anion Gap (3-11) BUN (7-18) mg/dl Creatinine (0.6-1.2) mg/dl Est Cr Clr Drug Dosing ml/min Est GFR ( Amer) Est GFR (Non-Af Amer) BUN/Creatinine Ratio (10-20) Glucose (70-99) mg/dl Calcium (8.5-10.1) mg/dl Procalcitonin < 0.05 (0-0.5) ng/ml Double Strand DNA Ab Pending SARS-CoV-2 Ag (Rapid) (Negative) Medications Administered Current Inpatient Medications Amlodipine Besylate (Amlodipine Besylate 5 Mg Tab) 5 mg PO QAM [facility] Stop: 05/18/20 08:59 Apixaban (Apixaban 5 Mg Tablet) 5 mg PO BID [facility] Stop: 05/16/20 20:59 Last Admin: 04/17/20 08:37 Dose: 5 mg Documented by: Diphenhydramine HCl (Pre-Med Diphenhydramine 25 Mg Cap) 50 mg PO TODAY@30 [facility] Stop: 04/17/20 23:59 Doxazosin Mesylate (Doxazosin Mesylate Tab 2 Mg Tab) 2 mg PO DAILY [facility] Stop: 05/18/20 08:59 Furosemide (Furosemide 40 Mg Tab) 40 mg PO BID17 [facility] Stop: 05/16/20 16:59 Last Admin: 04/17/20 08:37 Dose: 40 mg Documented by: Hydralazine HCl (Hydralazine Hcl 20 Mg/Ml Vial) 10 mg IV Q4H PRN PRN Reason: SBP >180 Stop: 05/17/20 09:49 Rituximab 1,000 mg/ Sodium (Chloride) 500 mls @ 25 mls/hr IV .Q20H [facility]; Protocol Stop: 04/18/20 04:59 Lisinopril (Lisinopril 40 Mg Tab) 40 mg PO QAM [facility] Stop: 05/17/20 08:59 Last Admin: 04/17/20 08:37 Dose: 40 mg Documented by: Metoprolol Tartrate (Metoprolol Tartrate 25 Mg Tab) 25 mg PO QID [facility] Stop: 05/16/20 16:59 Last Admin: 04/17/20 12:33 Dose: Not Given Documented by: Multivitamins (Multivitamin Tab) 1 tab PO QPM [facility] Stop: 05/16/20 20:59 Last Admin: 04/16/20 21:11 Dose: 1 tab Documented by: Spironolactone (Spironolactone 100 Mg Tab) 100 mg PO DAILY [facility] Stop: 05/17/20 08:59 Last Admin: 04/17/20 08:37 Dose: 100 mg Documented by: Resident Activity Tracking Resident Involvement: Resident Care Provided Care Provided: Adult Hospital Medicine
[2020-04-17] MEDS: hydrALAZINE HCL 20 MG/ML VIAL IV PRN (15:19)
--- NOTE | 2020-04-17 17:36 | Billing Data ---
Date of Service April 17, 2020 Coding Level of Care Code 96960 Subseq Hosp Care Lvl 3
[2020-04-17] MEDS: MULTIVITAMIN TAB PO SCH (20:27)
[2020-04-18] MEDS: hydrALAZINE HCL 20 MG/ML VIAL IV PRN (03:41)
[2020-04-18 08:18] LABS: Calcium 8.7 mg/dl (8.5-10.1); Est GFR (African American) 42.9; Phosphorus 4.1 mg/dl (2.5-4.9); Potassium 3.7 mmol/L (3.5-5.1)
[2020-04-18] MEDS: amLODIPine BESYLATE 5 MG TAB PO SCH (08:21)
[2020-04-18] MEDS: SPIRONOLACTONE 100 MG TAB PO SCH (08:21)
[2020-04-18] MEDS: APIXABAN 5 MG TABLET PO SCH ×2 (08:21→21:14)
[2020-04-18] MEDS: METOPROLOL TARTRATE 25 MG TAB PO SCH ×4 (08:22→21:17)
[2020-04-18] MEDS: lisinopril 40 MG TAB PO SCH (08:22)
[2020-04-18] MEDS: DOXAZosin MESYLATE TAB 2 MG TAB PO SCH (08:23)
[2020-04-18] MEDS: FUROSEMIDE 40 MG TAB PO SCH (08:23)
[2020-04-18] MEDS: LEVOTHYROXINE SODIUM 50 MCG TABLET PO SCH (08:25)
[2020-04-18] MEDS ORDERED: amLODIPine BESYLATE 5 MG TAB PO SCH (09:00)
--- NOTE | 2020-04-18 10:41 | Hospitalist Progress Note ---
Date of Service April 18, 2020 Assessment & Plan (1) Hypertensive urgency: Peri Arredondo is a 74y/o F with PMH significant for unknown nephrotic syndrome, resistant hypertension, and atrial fibrillation; who presented for concern of elevated blood pressures with palpitations, and headaches. Hypertensive urgency: - patient home regimen of Lasix 40mg BID, Lisinopril 40mg daily, Spironolactone 50mg, and Doxazosin 1mg; previously having difficulty controlling blood pressure as outpatient according to continued monitoring reports from patients log which demonstrates raising BP over the last several weeks - nephrology consulted: initiated Rituximab for con-comitant nephrotic syndrome - continue Lasix 40mg BID, Lisinopril 40mg daily, Spironolactone 100mg, doxazosin 2mg daily, and metoprolol - patient continuing to have SBP>180 despite above - patient appropriately not regularly receiving Metoprolol due to low HR - continue Norvasc 10mg daily scheduled - Hydralazine 10mg Q4h PRN SBP>180 Nephrotic syndrome: - patient with history of undifferentiated nephrotic syndrome - Nephrology consulted: initiated rituximab therapy today with pretreatment Atrial fibrillation with RVR: - converted to regular rate following initiation of diltiazem, however HR dropped to low shortly after initiation causing it to be stopped - continue Eliquis Acute Kidney Injury: - Cr on admission 0.87, with raise to 1.39 this am - continue to monitor Hypothyroidism: - TSH on admission 7.03, previous draw prior to current visit 6.54 - started Synthroid 50mcg daily - repeat TSH in 6 weeks (2) Nephrotic syndrome: (3) Bilateral lower extremity edema: (4) Resistant hypertension: (5) Atrial fibrillation with rapid ventricular response: Admission and Anticipated Discharge Date Admission Date: April 16, 2020 Supervising Physician Co-Signing Physician Notes I personally examined the patient and verified all shaw points of history and exam, discussed case, and agree with decision making with Dr Monique. feeling good happy w progress in BP vitals noted nad heent nc at mmm breathing unlabored no accessory msucles good effort skin no rashes no pallor or icterus nephrotic syndrome/uncontrolled HTN - rituxin started by nephro, follow. ongoing titration of bp control showing improvement new onset afib/rvr - rates now good, echo overall ok. continue current. anticoagulated hopefully home tomorrow otherwise as above Subjective Patient overnight had several elevated blood pressures that were partially responsive to Hydralazine, up to 214 systolic; continues to not feel headaches, vision changes, nausea, vomiting, chest pain, chest pressure, palpitations. Continues to remain anxious regarding overall concerns about all the diseases that she feels like she has that have all come up out of relatively nowhere. Has had improvement in blood pressure throughout the day with the above regimen. Review of Systems Review of Systems: All systems reviewed & are unremarkable except as noted in Subjective Physical Exam Constitutional: WD/WN, vitals as above Eyes: PERRL, conjunctivae normal, anicteric sclerae Respiratory: normal respiratory effort, lungs clear to auscultation Cardiovascular: Rate/Rhythm: regular rate and regular rhythm Heart Sounds: no gallop, no murmur and no cardiac rub Vessels: normal peripheral pulses Extremities: + pedal edema (1+); no calf tenderness Gastrointestinal (Abdomen): normal bowel sounds, soft, nontender, no hepatosplenomegaly Skin: no rashes, warm and dry Neurologic: normal touch/pain/proprioception and moves all extremities Psychiatric: Orientation: alert and oriented x 3 Affect: + anxious affect Results & Data Results & Data ([facility]) Vital Signs (Past 12 Hours) Vital Signs Temp Pulse Pulse Resp BP BP Pulse Ox 04/18/20 10:32 66 149/63 H 04/18/20 07:10 36.8 C 74 18 185/74 H 98 04/18/20 06:00 71 183/72 H 04/18/20 03:15 37.0 C 64 20 198/80 H 92 04/18/20 00:15 58 L 04/17/20 23:00 36.7 C 65 20 177/71 H 94 Laboratory Results 04/18/20 Range/Units 07:16 Sodium 142 (136-145) mmol/L Potassium 3.7 (3.5-5.1) mmol/L Chloride 108 H (98-107) mmol/L Carbon Dioxide 27 (21-32) mmol/L Anion Gap 7.0 (3-11) BUN 33 H (7-18) mg/dl Creatinine 1.39 H (0.6-1.2) mg/dl Est Cr Clr Drug Dosing 34.0 ml/min Est GFR ( Amer) 42.9 Est GFR (Non-Af Amer) 37.0 BUN/Creatinine Ratio 24.0 H (10-20) Glucose 106 H (70-99) mg/dl Calcium 8.7 (8.5-10.1) mg/dl Phosphorus 4.1 (2.5-4.9) mg/dl Albumin 2.0 L (3.4-5.0) gm/dl Medications Administered Current Inpatient Medications Amlodipine Besylate (Amlodipine Besylate 5 Mg Tab) 10 mg PO QAM [facility] Stop: 05/18/20 08:59 Last Admin: 04/18/20 08:21 Dose: 10 mg Documented by: Apixaban (Apixaban 5 Mg Tablet) 5 mg PO BID [facility] Stop: 05/16/20 20:59 Last Admin: 04/18/20 08:21 Dose: 5 mg Documented by: Doxazosin Mesylate (Doxazosin Mesylate Tab 2 Mg Tab) 2 mg PO DAILY [facility] Stop: 05/18/20 08:59 Last Admin: 04/18/20 08:23 Dose: 2 mg Documented by: Furosemide (Furosemide 40 Mg Tab) 40 mg PO BID17 [facility] Stop: 05/16/20 16:59 Last Admin: 04/18/20 08:23 Dose: 40 mg Documented by: Hydralazine HCl (Hydralazine Hcl 20 Mg/Ml Vial) 10 mg IV Q4H PRN PRN Reason: SBP >180 Stop: 05/17/20 09:49 Last Admin: 04/18/20 03:41 Dose: 10 mg Documented by: Levothyroxine Sodium (Levothyroxine Sodium 50 Mcg Tablet) 50 mcg PO DAILYBB [facility] Stop: 05/18/20 07:59 Last Admin: 04/18/20 08:25 Dose: 50 mcg Documented by: Lisinopril (Lisinopril 40 Mg Tab) 40 mg PO QAM [facility] Stop: 05/17/20 08:59 Last Admin: 04/18/20 08:22 Dose: 40 mg Documented by: Metoprolol Tartrate (Metoprolol Tartrate 25 Mg Tab) 25 mg PO QID [facility] Stop: 05/16/20 16:59 Last Admin: 04/18/20 08:22 Dose: 25 mg Documented by: Multivitamins (Multivitamin Tab) 1 tab PO QPM [facility] Stop: 05/16/20 20:59 Last Admin: 04/17/20 20:27 Dose: 1 tab Documented by: Spironolactone (Spironolactone 100 Mg Tab) 100 mg PO DAILY [facility] Stop: 05/17/20 08:59 Last Admin: 04/18/20 08:21 Dose: 100 mg Documented by: Resident Activity Tracking Resident Involvement: Resident Care Provided Care Provided: Adult Hospital Medicine
--- NOTE | 2020-04-18 12:16 | Nephrology Progress Note ---
Date of Service April 18, 2020 Assessment & Plan (1) Membranous nephritis: Peri admitted to the hospital with hypertensive urgency and AFib with RVR. Initially started on diltiazem but heart rate dropped to 50s and diltiazem was stopped. She spontaneously converted to sinus rhythm. Blood pressure still remained elevated. 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 Workup also revealed positive RICARDO. Cr 1.4, electrolyte acceptable ( b/l cr 0.8 to 0.9). BP started to improve, LE edema improved. Received first dose of Rituximab 1 gm on 04/17/20, tolerated well, second dose of 1 gm on 05/01 or 05/02 --hold Lasix today --continue lisinopril 40, spironolactone 100, doxazosin to 2 mg/d, continue metoprolol --Discussed with patient and her daughter Josie over telephone this morning ([phone]). --continue on Eliquis due to high risk for thromboembolic event considering significant hypoalbuminemia and membranous nephropathy --possible DC tomorrow if BP continues to improve and renal function stabilize. Will follow. (2) Nephrotic syndrome: (3) Positive RICARDO (antinuclear antibody): (4) Resistant hypertension: (5) Bilateral lower extremity edema: (6) Atrial fibrillation with rapid ventricular response: (7) Hypertensive urgency: Admission and Anticipated Discharge Date Admission Date: April 16, 2020 Subjective Peri was seen and examined this morning. Overall she is doing better today and seems less anxious. BP just started to improve. Cr still high at 1,4. LE edema improved. Appetite fair, no SOB. Review of Systems Review of Systems: All systems reviewed & are unremarkable except as noted in Subjective Physical Exam Constitutional: WD/WN, vitals as above no acute distress Respiratory: normal respiratory effort, lungs clear to auscultation Cardiovascular: Rate/Rhythm: regular rate and regular rhythm Heart Sounds: normal S1 and normal S2 Extremities: + edema Skin: no rashes, warm and dry Neurologic: awake; no focal motor deficits and not confused Psychiatric: Orientation: alert and oriented x 3 Affect: + anxious affect Results & Data ([facility]) Vital Signs (Past 12 Hours) Vital Signs Temp Pulse Pulse Resp BP BP Pulse Ox 04/18/20 11:12 36.7 C 57 L 18 149/63 H 99 04/18/20 10:32 66 149/63 H 04/18/20 07:10 36.8 C 74 18 185/74 H 98 04/18/20 06:00 71 183/72 H 04/18/20 03:15 37.0 C 64 20 198/80 H 92 04/18/20 00:15 58 L PG Care Time/CCT Total # of Minutes Spent Total Time Spent with Patient: Total time spent is greater than 50% in coordination of care (as documented) at patient's floor/unit and/or counseling patient: Coding Level of Care Code 11677 Subseq Hosp Care Lvl 3 Diagnoses Membranous nephritis N05.2 Nephrotic syndrome N04.9 Positive RICARDO (antinuclear antibody) R76.8 Resistant hypertension I10 Bilateral lower extremity edema R60.0 Atrial fibrillation with rapid ventricular response I48.91 Hypertensive urgency I16.0
[2020-04-18 13:08] LABS: Anti-dsDNA Recombinant 2 IU/mL
--- NOTE | 2020-04-18 19:13 | Billing Data ---
Date of Service April 18, 2020 Coding Level of Care Code 93044 Subseq Hosp Care Lvl 3
[2020-04-18] MEDS: MULTIVITAMIN TAB PO SCH (21:15)
[2020-04-19] MEDS: LEVOTHYROXINE SODIUM 50 MCG TABLET PO SCH (06:21)
[2020-04-19 07:26] LABS: Albumin Level 1.8 gm/dl (3.4-5.0); BUN Creatinine Ratio 27.6 (10-20); Calcium 7.5 mg/dl (8.5-10.1); Creatinine Clr Calc Pharmacy 42.6 ml/min; Est GFR (African American) 56.3; Est GFR (Non-African American) 48.5; Phosphorus 3.8 mg/dl (2.5-4.9); Potassium 3.6 mmol/L (3.5-5.1)
[2020-04-19] MEDS: amLODIPine BESYLATE 5 MG TAB PO SCH (07:54)
[2020-04-19] MEDS: APIXABAN 5 MG TABLET PO SCH (07:54)
[2020-04-19] MEDS: METOPROLOL TARTRATE 25 MG TAB PO SCH ×2 (07:54→13:02)
[2020-04-19] MEDS: DOXAZosin MESYLATE TAB 2 MG TAB PO SCH (07:54)
[2020-04-19] MEDS: lisinopril 40 MG TAB PO SCH (07:55)
[2020-04-19] MEDS: SPIRONOLACTONE 100 MG TAB PO SCH (07:55)
--- NOTE | 2020-04-19 09:57 | Nephrology Progress Note ---
Date of Service April 19, 2020 Assessment & Plan (1) Membranous nephritis: Peri admitted to the hospital with hypertensive urgency and AFib with RVR. Initially started on diltiazem but heart rate dropped to 50s and diltiazem was stopped. She spontaneously converted to sinus rhythm. Blood pressure still remained elevated. 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 Workup also revealed positive RICARDO. FEI resolving, cr down to 1.0 ( b/l cr 0.8 to 0.9). BP started to improve, LE edema improved. Received first dose of Rituximab 1 gm on 04/17/20, tolerated well, second dose of 1 gm on 05/01 or 05/02 Although occasional blood pressure still elevated but most of the readings improved significantly and definitely in the right direction. Expect blood pressure continue to improve with current regimen. the -- okay to discharge later today if blood pressure trend continues -- resume Lasix at 40 milligram once a day on discharge, advised to continue to monitor blood pressure at home after discharge and bring the record to outpatient visit -- advised to have renal panel done on 04/23/2020 prior to outpatient follow-up on 04/24/2020 --continue lisinopril 40, spironolactone 100, doxazosin to 2 mg/d, metoprolol --continue on Eliquis due to high risk for thromboembolic event considering significant hypoalbuminemia and membranous nephropathy Will follow while inpatient. (2) Nephrotic syndrome: (3) Positive RICARDO (antinuclear antibody): (4) Resistant hypertension: (5) Bilateral lower extremity edema: (6) Atrial fibrillation with rapid ventricular response: (7) Hypertensive urgency: Admission and Anticipated Discharge Date Admission Date: April 16, 2020 Subjective Peri was seen and examined this morning. Overall she is doing better today and seems less anxious. BP just started to improve. Cr still high at 1,4. LE edema improved. Appetite fair, no SOB. Physical Exam Constitutional: WD/WN, vitals as above no acute distress Respiratory: normal respiratory effort, lungs clear to auscultation Cardiovascular: Rate/Rhythm: regular rate and regular rhythm Heart Sounds: normal S1 and normal S2 Extremities: + edema (1+ B/L LE edema) Skin: no rashes, warm and dry Neurologic: awake; no focal motor deficits and not confused Psychiatric: A+Ox3, euthymic affect Results & Data ([facility]) Vital Signs (Past 12 Hours) Vital Signs Temp Pulse Pulse Resp BP BP Pulse Ox 04/19/20 07:50 65 04/19/20 07:22 37.0 C 62 18 187/74 H 96 04/19/20 03:12 37.0 C 56 L 20 158/63 H 93 04/19/20 00:30 54 L 04/18/20 23:00 36.8 C 61 20 170/73 H 93 PG Care Time/CCT Total # of Minutes Spent Total Time Spent with Patient: Total time spent is greater than 50% in coordination of care (as documented) at patient's floor/unit and/or counseling patient: Coding Level of Care Code 47025 Subseq Hosp Care Lvl 3 Diagnoses Membranous nephritis N05.2 Nephrotic syndrome N04.9 Positive RICARDO (antinuclear antibody) R76.8 Resistant hypertension I10 Bilateral lower extremity edema R60.0 Atrial fibrillation with rapid ventricular response I48.91 Hypertensive urgency I16.0
--- NOTE | 2020-04-19 11:46 | Discharge Summary ---
Date of Service April 19, 2020 Admission HPI Per Admitting Provider Peri Arredondo is a 74-year-old female who presents to the ER with rapid heart rate. She reports waking up this morning feeling palpitations when walking to the bathroom. Her checked her pulse with a monitor and it was fast therefore she came to the ER. She denies any chest pain. Mild shortness of breath especially while lying flat. No PND, claudication. She reports feeling her normal self yesterday, although does note increased leg swelling over the last 2 months. She has ongoing work-up for nephrotic syndrome (suspected membranous nephropathy per recent lab work) and resistant hypertension under Dr. Shepard. Most recently she was started on doxazosin 3 days ago and I suspect switch from labetalol to betaxolol although have no documentation regarding this. Her reports a medication not being available at the pharmacy which I assume to be due to betaxolol given this is not on the patient's recent hand written medication list. I suspect she stopped the labetalol and started doxazosin likely increasing risk of recurrent atrial fibrillation with rebound tachycardia. In the ER chest x-ray concerning for left-sided pleural effusion and EKG showing atrial fibrillation. Principal Diagnosis Hypertensive urgency secondary to nephrotic syndrome Discharge Exam Constitutional WD/WN, vitals as above Eyes PERRL, conjunctivae normal, anicteric sclerae Respiratory normal respiratory effort, lungs clear to auscultation Cardiovascular Rate/Rhythm: regular rate and regular rhythm Heart Sounds: no gallop, no murmur and no cardiac rub Vessels: normal peripheral pulses Extremities: no calf tenderness Gastrointestinal (Abdomen) normal bowel sounds, soft, nontender, no hepatosplenomegaly Skin no rashes, warm and dry Neurologic normal touch/pain/proprioception and moves all extremities Psychiatric Orientation: alert and oriented x 3 Affect: + anxious affect Discharge Data Allergies Allergy/AdvReac Type Severity Reaction Status Date / Time No Known Drug Allergies Allergy Verified 04/16/20 10:38 Consultations 04/16/20 12:10 ED Decision to Admit Stat 04/16/20 15:27 Consult Nephrology Routine Ordered Studies 04/16/20 13:48 CT abd pelvis IV con only Urgent CT chest w con Urgent Hospital Course (1) Hypertensive urgency: Peri Arredondo is a 74y/o F with PMH significant for unknown nephrotic syndrome, resistant hypertension, and atrial fibrillation; who presented for concern of elevated blood pressures with palpitations, and headaches. Hypertensive urgency: - patient home regimen of Lasix 40mg BID, Lisinopril 40mg daily, Spironolactone 50mg, and Doxazosin 1mg; previously having difficulty controlling blood pressure as outpatient according to continued monitoring reports from patients log which demonstrates raising BP over the last several weeks - nephrology consulted: initiated Rituximab for con-comitant nephrotic syndrome - continue Norvasc 5mg BID, Lisinopril 20mg BID, Spironolactone 50mg daily, Doxazosin 5mg daily, Metoprolol 25mg BID - stopped Lasix Nephrotic syndrome: - patient with history of undifferentiated nephrotic syndrome - Nephrology consulted: initiated rituximab therapy, with repeat in two weeks Atrial fibrillation with RVR: - converted to regular rate following initiation of diltiazem, however HR dropped to low shortly after initiation causing it to be stopped - continue Eliquis 5mg BID, Metoprolol 25mg BID Acute Kidney Injury: - Cr on admission 0.87, with raise to 1.11 this am - continue to monitor Hypothyroidism: - TSH on admission 7.03, previous draw prior to current visit 6.54 - started Synthroid 50mcg daily - repeat TSH in 6 weeks Total Time Total Time Spent Total Time Spent (In Minutes): <30 Discharge Plan Discharge Items Patient Disposition: Home - Self-Care Reason For Visit: HYPERTENSIVE URGENCY,NEW ONSET ATRIAL FIBRILLATION Discharge Diagnosis: Nephrotic syndrome, HTN urgency Activity: Per Instructions section Non-emergency contact: Primary Care Provider and Windows Support Engineer Call non-emergency contact if: you have any medication questions, your symptoms worsen and you have a fever Follow-up/Referrals: Tiff Montero DO [Primary Care Provider] - 05/01/20 9:20 am Diet: Regular Addtl Attending Provider Instructions: You were admitted for concerns of elevated blood pressures in the setting of a known history of resistant blood pressures. During this hospitalization, we worked with the eligibility and occupancy interviewer to both control your blood pressure and to address the known kidney disease that you have. In order to do this we started an immunotherapy treatment for the kidney disease, that you will continue to do and follow-up with the Windows Support Engineer (kidney doctor) in the coming weeks for another round of treatment. For the control of your blood pressure we have made several modifications to your regimen that has generated success in better controlling your blood pressure while you have been here in the hospital. This regimen will look like you taking: - Doxazosin 2mg daily (increase from your previous regimen) - Lisinopril 20mg twice a day (split your home regimen in half and having you take that twice to have better control of your blood pressure) - Norvasc 5mg twice a day (this is a new medication that you will take twice a day) - Metoprolol 25mg twice a day (this is a new medication that you will take twice a day for both your heart rate and your blood pressure) - Spironolactone 50mg daily (this is the same as you were previously taking) Additionally will be taking a new medication for you thyroid, this is called Synthroid and you are taking a low dose that you should have your Primary care doctor follow-up on with lab work in 6 weeks. Pending Studies at Discharge: No Stand-Alone Forms: [facility], Smoking Cessation Medications and DC Order Prescriptions: New amlodipine [Norvasc] 5 mg Tablet 5 mg PO BID 30 Days Qty: 60 RF: 0 lisinopril [Zestril] 40 mg Tablet 20 mg PO BID 30 Days Qty: 30 RF: 0 doxazosin 2 mg Tablet 2 mg PO DAILY 30 Days Qty: 30 RF: 0 levothyroxine [Synthroid] 50 mcg Tablet 50 mcg PO DAILYBB 30 Days Qty: 30 RF: 0 metoprolol tartrate 25 mg Tablet 25 mg PO BID 30 Days Qty: 60 RF: 0 Eliquis 5 mg Tablet 5 mg PO BID 30 Days Qty: 60 RF: 0 Continued spironolactone 50 mg tablet 50 mg PO DAILY Qty: 30 RF: 2 multivitamin Tablet 1 tab PO QPM RF: 0 Discontinued doxazosin 1 mg tablet 1 mg PO DAILY Qty: 30 RF: 2 betaxolol 10 mg tablet 5 mg PO DAILY Qty: 15 RF: 2 lisinopril 40 mg Tablet 40 mg PO QAM RF: 0 Discharge Orders: Discharge Order (Routine); Ordered 04/19/20 Ordered By: Augusto Townsend/Other Patient Handouts: What Is High Blood Pressure?, Understanding Atrial Fibrillation Admission Data Admit Date/Time: 04/16/20 13:00 Attending Provider: Antonio Guillen Admit Provider: Jonatan Fontaine Primary Care Provider: Tiff Montero Other Providers: Jonatan Fontaine ; Juliann Shepard Other Interventions: Discharge Summary Assessment (RN) Last Done: 04/19/20 13:09 Supervising Physician Co-Signing Physician Notes I personally examined the patient and verified all shaw points of history and exam, discussed case, and agree with decision making with Dr Monique. feeling good wants to go home vitals noted nad heent nc at mmm breathing unlabored no accessory muscles good effort skin no rashes no pallor or icterus nephrotic syndrome/uncontrolled HTN - rituxin started by nephro, follow. ongoing titration of bp control - for now seeing she gets higher just before AM meds - will keep same total mg but split dosing to BID. otherwise ok for outpt f/u and ongoing titration of meds as outpt new onset afib/rvr - rates now good, echo overall ok. continue current. anticoagulated stable for home otherwise as above Resident Activity Tracking Resident Involvement: Resident Care Provided Care Provided: Adult Hospital Medicine
--- NOTE | 2020-04-19 19:32 | Billing Data ---
Date of Service April 19, 2020 Coding Level of Care Code D/C Day Management <30 mins
== END 2020-04-19 14:36 | disposition home or self-care (01) | DRG 699 ==
LOC: ED 09:18 → SUATTDRO 13:00 → 2S 13:00 → 2W 04-17 11:25

== ENCOUNTER 2020-09-25 08:20 | Observation (INO) ==
--- NOTE | 2020-09-04 14:53 | History & Physical Report ---
Date of Service September 04, 2020 date of surgery: 09/25/20 Procedure: Left Total Knee Arthroplasty Assessment & Plan (1) Arthritis of knee, left: Risks and benefits of procedure discussed in detail today, patient would like to proceed with a Left total knee replacement at [facility] as scheduled. will obtain medical clearance from Dr Montero prior to surgery as well as obtain PATs at [facility]. Will place on ASA 81mg po bid x 1 month post op, f/u 2 weeks post op for routine post-operative care and x-ray, sooner if having any problems. will make arrangements for HHPT at the time of discharge. At this point in time, has failed conservative measures and would like to proceed with surgical intervention. The risks and benefits have been discussed including, but not limited to, risk of infection, nerve injury, stiffness, loss of motion, failure to improve, etc. Reasonable outcomes and options of treatment were discussed. An explanation of appropriate alternatives to the procedure that may be advantageous were discussed and their risks and benefits, as well as the risks and benefits of not proceeding with treatment. I offered to answer any additional inquiries concerning the treatment involved. All the patient's questions were answered. The patient is agreeable, understanding of the treatment plan and alternatives, and wishes to proceed with the treatment plan. History of Present Illness Chief Complaint: left knee pain Primary Care Provider: Tiff Montero DO Ms Arredondo is a 74 year old female who complains of left knee pain, presents for pre-op prior to a left total knee replacement at [facility]. She presents with pain and stiffness in the left knee. She states that the symptoms have been chronic non-traumatic. Currently the patient states that the symptoms are moderate-severe. The pain is described as aching, sharp and throbbing. The symptoms are aggravated by stairs, daily activities, driving, exercise, first steps while awake, jumping, kneeling, repetitive activities, sleeping in any position, squatting, standing and weight bearing. In addition to knee pain she is also experiencing decreased mobility, difficulty bending, difficulty going to sleep, instability, limping, nighttime awakening, pain, stiffness, tenderness and weakness. Allergies Allergy/AdvReac Type Severity Reaction Status Date / Time No Known Drug Allergies Allergy Verified 07/25/20 15:54 Home Medications Medication Instructions Recorded Confirmed Type multivitamin 1 tab PO QPM 01/04/20 07/25/20 History furosemide 20 mg tablet 20 mg PO BID #180 tab 05/07/20 07/25/20 Rx apixaban 5 mg tablet 5 mg PO BID 30 Days #60 tab 05/14/20 07/25/20 Rx lisinopril 40 mg tablet 40 mg PO DAILY 30 Days #90 tab 06/14/20 07/25/20 Rx metoprolol tartrate 25 mg tablet 12.5 mg PO BID 90 Days #45 tab 06/14/20 07/25/20 Rx doxazosin 2 mg tablet 2 mg PO DAILY 30 Days #90 tab 07/16/20 07/25/20 Rx spironolactone 50 mg tablet 50 mg PO DAILY #90 tab 07/31/20 Rx levothyroxine 50 mcg tablet 50 mcg PO DAILYBB 30 Days #90 tab 09/03/20 Rx Past Med/Surg History Medical History Acute kidney injury Arthritis of knee, left Diastolic dysfunction Hypertension Membranous nephritis Nephrotic syndrome Positive RICARDO (antinuclear antibody) Proteinuria Resistant hypertension Surgical History History of dilatation and curettage Family History Mother Colorectal cancer, Onset Age: 87 Father , age 78 Hypertension Brother Heart disease Hypertension Denies family history of Ovarian cancer Prostate cancer Breast cancer Social History Smoking Status: Never smoker Second Hand Exposure: No; Hx Alcohol Use: No Hx Substance Use: No Preferred Language: Telugu Communication Ability: Effective Visual Impairment: No Limitations Hearing Ability: Normal Certified Real Estate Appraiser Required: No Beliefs That Will Affect Care: None marital status: Current Living Situation: Spouse current occupational status: retired Feels Safe at Home: Yes caffeine: Yes during the past year weight has: remained stable Dental Care, Regularly: Yes Physical Activity Frequency: Does not Exercise Physical Activity Frequency Comment: can not due to physical limitations Seatbelt Use: always Sunscreen Use: Yes Assistive Devices: Cane and Glasses Review of Systems Review of Systems: All systems reviewed & are unremarkable except as noted in HPI & below Constitutional: no fever, no chills and no sweats Respiratory: no cough and no dyspnea Cardiovascular: no chest pain, no dyspnea and no orthopnea Gastrointestinal: no abdominal pain, no nausea and no vomiting Musculoskeletal: as per Subjective / HPI Physical Exam Physical Exam: Ht: 5ft 8in Wt: 72.58kg BP: 158/80 Constitutional: WD/WN, vitals as above no acute distress Respiratory: normal respiratory effort, lungs clear to auscultation no respiratory distress, no labored breathing and does not use accessory muscles Cardiovascular: RRR, no murmur, no edema Gastrointestinal (Abdomen): normal bowel sounds, soft, nontender, no hepatosplenomegaly Musculoskeletal: Knee: + knee abnormal to inspection (left knee), + effusion (+1 effusion), + limited ROM of knee (ROM 0/3/110), + knee ROM with crepitation, + joint line tenderness (medial joint line) and + Sabina's sign positive; no deformity, no skin erythema, no ecchymosis, no valgus laxity, no varus laxity, anterior drawer test negative, Macrina's sign negative and pivot shift test negative Results & Data Results & Data ([facility]) Diagnostic Findings Left Knee X-ray 06/06/19 confirms advanced degenerative changes to the left knee, tricompartmental, showing joint space narrowing, osteophyte formation and subchondral sclerosis. no acute bony pathology noted. overall valgus alignment.
--- NOTE | 2020-09-07 13:27 | Anesthesiology Consultation ---
Date of Service September 07, 2020 Assessment & Plan (1) Encounter for pre-operative examination: - COVID screening: Per assessment on 09/07: Travel screen negative, no known COVID-19 positive contacts or current COVID-19 related symptoms. Surgeon arranging preop COVID testing. Awaiting results. - PCP office visit (07/25/20): "She was scheduled to have knee surgery back in February. Surgery was delayed d/t elevated blood pressure and abnormal EKG. Stress ECHO was recommended, but could not be completed d/t uncontrolled HTN. ECHO in 04/2020 w/ normal EF, no wall abnormalities, EF normal, mild MR, mild TR. It was recommended at 04/2020 appt that once better BP control, patient complete stress test prior to surgery.. BP has been well controlled. Monitoring closely at home-- usually 120/70s.. She is feeling very well since better control of BP.L knee arthritis: BP better controlled. Blood work on exit. Stress test ordered d/t abnormal EKG. Pre-op clearance pending above results." Pulse 60 and BP 147/73 at visit. - PCP addendum (08/10/20): "Attempted stress test again but could not be completed d/t HTN. ECHO stable. Cardiology reviewed records and OK w/ patient pursing surgery from cardiac standpoint. Patient is at acceptable risk for pursuing surgical intervention and cleared medically." - Medication instructions: Per [facility] records, patient has been advised to stop Eliquis 5 days prior to surgery. Chart Review Chart Review: Acceptable Risk for Surgery (pending evaluation AM DOS) and Patient NOT seen in Pre Admission Testing History Surgery Operation Date: 09/25/20 09:55 Proposed Procedures p Left Total Knee Arthroplasty - Eliceo Green DO Height/Weight Height: 5 ft 7 in Weight: 71.278 kg Allergies Allergy/AdvReac Type Severity Reaction Status Date / Time No Known Drug Allergies Allergy Unknown Verified 09/07/20 12:01 Medications Home Medications Medication Instructions Recorded Confirmed Last Taken multivitamin 1 tab PO QAM 01/04/20 09/07/20 04/16/20 furosemide 20 mg tablet 20 mg PO BID #180 tab 05/07/20 09/07/20 Unknown apixaban 5 mg tablet 5 mg PO BID 30 Days #60 tab 05/14/20 09/07/20 Unknown metoprolol tartrate 25 mg tablet 12.5 mg PO BID 90 Days #45 tab 06/14/20 09/07/20 Unknown acetaminophen [Tylenol Extra 1,000 mg PO Q6H PRN 09/07/20 09/07/20 Unknown Strength] cholecalciferol (vitamin D3) 50 mcg PO QAM 09/07/20 09/07/20 Unknown [Vitamin D3] doxazosin 2 mg PO QAM 09/07/20 09/07/20 Unknown levothyroxine [Synthroid] 50 mcg PO QAM 09/07/20 09/07/20 Unknown lisinopril [Zestril] 20 mg PO BID 09/07/20 09/07/20 Unknown magnesium oxide 400 mg PO QPM 09/07/20 09/07/20 Unknown spironolactone 50 mg PO QAM 09/07/20 09/07/20 Unknown Past Medical History Medical History Arthritis of knee, left Atrial fibrillation on Eliquis Diastolic dysfunction Hypertension Resistant- monitored closely by PCP and nephrology, no renal artery stenosis, + nephrotic syndrome, currently well controlled per PCP records Nephrotic syndrome Positive RICARDO (antinuclear antibody) Past Family History Family History Mother Colorectal cancer, Onset Age: 87 Father , age 78 Hypertension Brother Heart disease Hypertension Denies family history of Ovarian cancer Prostate cancer Breast cancer Past Surgical History Surgical History History of dilatation and curettage 40+ years ago Social History Smoking Status: Never smoker Do You Dip or Chew Tobacco: No Hx Alcohol Use: No Hx Substance Use: No Lab Results Anesthesia Preop Results Results Anesthesia Widget: WBC 5.14 K/uL (4.8-10.8) 09/05/20 Hgb 11.9 g/dL (12.0-16.0) L 09/05/20 Hct 35.5 % (37-47) L 09/05/20 Plt 255 K/uL (130-400) 09/05/20 Na 137 mmol/L (136-145) 09/05/20 K 3.8 mmol/L (3.5-5.1) 09/05/20 Cl 103 mmol/L (98-107) 09/05/20 CO2 30 mmol/L (21-32) 09/05/20 BUN 28 mg/dl (7-18) H 09/05/20 Creat 0.72 mg/dl (0.6-1.2) 09/05/20 Glucose Level 65 mg/dl (70-99) L 09/05/20 PT 10.3 Seconds (9.0-12.0) 08/27/20 PTT 28.3 Seconds (21.0-31.0) 08/27/20 INR 1.0 (0.9-1.1) 08/27/20 TSH 1.740 uIu/ml (0.300-4.500) 08/27/20 HA1c 5.7 % (4.5-5.6) H 08/27/20 Urine Color Yellow 09/05/20 Urine Appearance Clear (Clear) 09/05/20 Urine pH 5.5 (4.5-7.5) 09/05/20 Urine Specific [place]ling 1.009 (1.000-1.030) 09/05/20 Urine Protein 2+ (Negative) H 09/05/20 Urine Glucose (UA) Negative (Negative) 09/05/20 Urine Ketones Negative (Negative) 09/05/20 Urine Blood 2+ (Negative) H 09/05/20 Urine Nitrite Negative (Negative) 09/05/20 Urine Bilirubin Negative (Negative) 09/05/20 Urine Urobilinogen Negative (Negative) 09/05/20 Urine Leukocyte Esterase Negative (Negative) 09/05/20 Urine WBC (Auto) 0 /hpf (0-5) 09/05/20 Urine RBC (Auto) 5-10 /hpf (0-4) H 09/05/20 Urine Hyaline Casts (Auto) 0 /lpf (0-5) 09/05/20 Urine Epithelial Cells (Auto) 0-5 /lpf (0-5) 09/05/20 Urine Bacteria (Auto) Negative (Negative) 09/05/20 Testing Electrocardiogram Date: 04/16/20 A. fib with RVR at 118bpm. PRWP, consider anterior TX vs. lead placement vs. LVH. Metoprolol initiated (rate controlled per 07/25/20 PCP clearance appt- pulse at visit 60). Subsequent unremarkable echo. At anesthesiologist discretion AM DOS if repeat EKG needed. Echocardiogram Date: 08/07/20 This was initially ordered as a stress test but per report, "stress test was not performed due to significant hypertension (200/100)." EF 60 to 65%. Mild concentric LVH. No regional wall motion abnormality. No significant valvular disease. Other Testing Chest CT (08/23/20): There is no airspace consolidation or pleural effusion. The groundglass focus in the right lower lobe seen on 04/16/2020 has resolved and was likely inflammatory. There is a 7 mm soft solid nodular density in the superior segment of the left lower lobe. This is unchanged from 04/16/2020 and of low suspicion. An additional 6-[address] is recommended in follow-up. PCP monitoring CT findings.
[~2020-09-25 08:20] MED LIST: ACETAMINOPHEN 500 MG TAB PO SCH; BUPIVACAINE 0.5 % 5 MG/1 ML PF 10ML VIAL ONE; BUPIVACAINE LIPOSOME/PF 266 MG, BUPIVACAINE/EPINEPHRINE 50 ML, SODIUM CHLORIDE 0.9% 30 ... INFIL SCH; CeleBREX 200 MG CAP PO SCH; FAMOTIDINE 20 MG TAB PO SCH; GABAPENTIN 300 MG CAP PO SCH; LR 15ML/HR IV SCH; METOCLOPRAMIDE HCL 10 MG TABLET PO SCH; ROPIVACAINE 0.5% 5 MG/ML 30 ML VIAL ONE; ROPIVACAINE 0.5% HCL/PF 150 MG, BUPIVACAINE 0.75% MPF 20 ML, EPINEPHrine 30MG/30ML (OR ... INFIL SCH; TRANEXAMIC ACID 1,000 MG **IV Intra-op IV SCH; TRANEXAMIC ACID 1,000 MG **IV Pre-op IV SCH; ceFAZolin 1000MG 1,000 MG/7.5 ML SYR IV SCH; dexAMETHasone 4 MG TAB PO SCH
[2020-09-25] MEDS ORDERED: MIDAZOLAM HCL 1 MG/ML 2ML VIAL ONE (09:30)
--- NOTE | 2020-09-25 09:51 | History & Physical Bridge Note ---
Date of Service September 25, 2020 History & Physical Bridge Note I have examined the patient, reviewed the History & Physical and in the interval since the performance of the History & Physical I have noted the following changes of clinical significance: no changes noted
[2020-09-25] MEDS ORDERED: LACTATED RINGER'S 500 ML IV ONE (10:05)
[2020-09-25] MEDS ORDERED: ORTHO JOINT ANESTHETIC ONE (10:25)
[2020-09-25] MEDS ORDERED: ATROPINE SULFATE 0.1 MG/ML 10ML SYR IV PRN (10:53)
[2020-09-25] MEDS ORDERED: ONDANSETRON INJ 2 MG/ML 2 ML VIAL IV PRN ×2 (10:53→14:36)
[2020-09-25] MEDS ORDERED: HYDROmorphone INJ 1 MG/ML SYRINGE IV PRN (10:53)
[2020-09-25] MEDS ORDERED: ePHEDrine sulfate 50 MG/ML AMP IV PRN (10:53)
[2020-09-25] MEDS ORDERED: ONDANSETRON INJ 2 MG/ML 2 ML VIAL ONE (11:45)
[2020-09-25] MEDS ORDERED: PROPOFOL IV EMULSION 10 MG/ML 20 ML VIAL IV ONE (11:45)
[2020-09-25] MEDS ORDERED: LIDOCAINE HCL 2% 2 ML VIAL/AMP(20MG/ML) INFIL ONE (11:45)
--- NOTE | 2020-09-25 12:24 | Operative Report ---
Post Operative Report Pre & Post Diagnosis Operation Date: 09/25/20 11:15 Pre-Op Diagnosis: Unilateral Primary Osteoarthritis Post-Op Diagnosis: Unilateral Primary Osteoarthritis I identified the patient and participated in the time-out.: Yes Procedure Operation Date: 09/25/20 11:15 Actual Procedures p Left Total Knee Arthroplasty(Left) utilizing [employer] therapeutics journey 2 patient matched total knee arthroplasty size 5 femur 4 tibia 11 polyethylene constrained 29 oval patella- Eliceo Green DO Surgeon Eliceo Green DO Car Scrubber Henrique SILVESTRE Estimated Blood Loss 5 Findings Consistent with Post-Op Diagnosis Patient presents with severe 8 degree valgus left knee with [id number] tricompartmentally subchondral sclerosis marginal osteophytes valgus alignment 10 degree flexion contracture with large effusion Specimens Bone and cartilage Drains Medium bore Hemovac Anesthesia Type MAC Spinal Regional Complications none Disposition Accompanied Patient To Recovery: No Disposition: Recovery Room Indications Patient presents with severe end-stage DJD valgus alignment left knee with [id number] eburnated bone subchondral sclerosis marginal osteophytes moderate to large effusion the above intraoperative findings were noted Description of Procedure After proper prepping and draping of the left lower extremity anterior midline incision was made over the region of the extensor extensor mechanism after meticulous hemostasis was obtained and maintained in subcutaneous tissues a medial parapatellar incision was made The patella was subluxed lateralward the medial lateral gutter were cleaned from any hypertrophic synovitis and scar tissue of the distal femoral block was placed and the distal femoral osteotomy cut was made subsequently the chamfers anterior and posterior osteotomy cuts were made utilizing the 4-in-1 block the tibia was subsequently subluxed anteri orward medial and ateral meniscal remnants were excised in their entirety remnants of the anterior and posterior cruciate ligaments were excised in their entirety excellent exposure of the proximal tibia was obtained the tibial osteotomy guide was placed on the proximal tibial osteotomy cut was made once again the knee was irrigated with copious amounts of sterile saline solution the patella was subsequently everted lateralward thickened scar tissue around the patella was removed the patella was subsequently cut utilizing a freehand technique and was drilled prepared for final preparation and placement of patella socially flexion-extension gaps were checked and the equal and symmetric trials were placed to the appropriate femoral and tibial trials with poly-spacer being placed for equal flexion and extension gaps and full range of motion including extension to 0 and flexion to 140 the trial components after having been taken to recovery range of motion was subsequently removed meticulous hemostasis was obtained and maintained subsequently a knee block injection of joint cocktail including ropivacaine 0.5% 150 mg. Bupivacaine 0.5% epinephrine 1-200,030 mL's toradol 30 mg dexamethasone 4 mg ketamine 10 mg clonidine 100 micrograms normal saline solution 30 mg was infiltrated into the soft tissues of the posterior knee medial lateral gutters and periosteal synovium special atten tion was paid to protect neurovascular structures at all times subsequently trial components having been removed the knee was irrigated with sterile saline solution. debris was removed the proximal tibia was subsequently prepared and was made ready for the placement of the tibial component tibial component was also cemented and tamped into position the femoral component was subsequently placed and cemented in the position the patellar component was subsequently cemented in position because hemostasis once again obtained and maintained wound having been thoroughly irrigated with debridement and debridement lavage was performed as well as a medial parapatellar incision closed with #1 Vicryl in interrupted fashion subcutaneous was closed with #2 Vicryl skin was closed with skin clips. PA-C was necessary for prepping and drapping as well as wound closure of deep fascia Sub cutaneous tissue and skin and was necessary for the case. A sterile compressive dressing was placed patient was taken to recovery in stable condition of report dictated by Peter I attest to the content of the Intraoperative Record and any orders documented therein. Any exceptions are noted below. I attest to the content of the Intraoperative Record and any orders documented therein. Any exceptions are noted below.
--- NOTE | 2020-09-25 13:30 | Anesthesiology Progress Note ---
Date of Service September 25, 2020 Anesthesia Post Procedure Vital Signs Vital Signs: Temp Pulse Pulse Resp BP BP Pulse Ox 09/25/20 13:20 62 22 135/68 96 09/25/20 13:10 66 22 138/59 L 100 09/25/20 13:01 36.1 C L 67 20 129/57 L 99 09/25/20 10:04 63 20 165/65 H 98 09/25/20 08:52 36.7 C 72 20 180/70 H 99 Transfer of Care Handoff Completed per policy Notes Mental Status: alert / awake / arousable Patient Amnestic to Procedure: Yes Nausea / Vomiting: adequately controlled Pain: adequately controlled Airway Patency, RR, SpO2: stable & adequate BP & HR: stable & adequate Hydration State: stable & adequate Neuraxial Anesthesia: was administered and sensory block is resolving Anesthetic Complications: no major complications apparent
--- NOTE | 2020-09-25 13:31 | XRay Report ---
LEFT KNEE 2 VIEWS History: Left total knee arthroplasty. Degenerative arthritis. Postop. FINDINGS: The patient is status post a left total knee arthroplasty. The hardware is intact. No fract ure or dislocation. Skin moreno and surgical drains are in place. IMPRESSION: Left total knee arthroplasty. No evidence for hardware complication. ACT 112: Negative or not required by law. Electronically signed by: Abhijit Kinsey M.D. 09/25/2020 1:30 PM
[2020-09-25] MEDS ORDERED: NALOXONE HCL 0.4 MG/1 ML VIAL/CARP IV PRN (14:36)
[2020-09-25] MEDS ORDERED: MAGNESIUM HYDROXIDE SUSP 30 ML UDC PO PRN (14:36)
[2020-09-25] MEDS ORDERED: oxyCODONE HCL IR 5 MG TAB (IMMEDIATE RELEASE) PO PRN (14:36)
[2020-09-25] MEDS ORDERED: HYDROmorphone INJ 0.5 MG/0.5 ML SYR IV PRN (14:36)
[2020-09-25] MEDS ORDERED: bisacodyL 10 MG SUPP PR PRN (14:36)
--- NOTE | 2020-09-25 15:20 | Hospitalist Consultation ---
Date of Consultation September 25, 2020 Assessment & Plan (1) Arthritis of knee, left: Patient underwent total knee arthroplasty by Dr. Green on 09/25/2020 she was seen preoperatively by nephrology who follows her for membranous glomerulonephritis and uncontrolled refractory hypertension. Their visit in the perioperative period the patient did have amendment to her medications stopping her metoprolol which was at low dose to 12.5 and doubling her lisinopril to 40. She likewise had a preoperative stress test in July this year which was unremarkable. And her most recent echocardiogram shows that EF to be 60 to 65% although she has a history of diastolic dysfunction Patient will have one half of her typical lisinopril dose on the resuming her dose of 40 on the . Reduce resuming her Lasix 20 twice daily on the continue her spironolactone 50 daily on the (2) A-fib: This is by history she is rate controlled at this time with low dose metoprolol xl 12.5and currently usually taking apixaban which will also be used postoperatively for DVT prevention (3) Membranous nephritis: Patient follows with Dr. Longoria has excellent creatinine and glomerular filtration rate typically seems to be bothered most by uncontrolled hypertension. In the past she has received rituximab and is scheduled for an additional dose of rituximab after she recovers from surgery. She typically has significant proteinuria and did have elevated plasma metanephrines in the past. (4) Diastolic dysfunction: This is by history she typically takes diuretics but they seem to be mostly targeted to control her hypertension. The diuretics will be held in the perioperative period reinstituting Lasix on the reinstituting the spironolactone on the (5) Hypothyroidism: Maintaining her Synthroid dosing (6) DVT prophylaxis: surgery has elected to resume apixaban History of Present Illness Attending Physician: Eliceo Green DO History of Present Illness 09/25/20 Left Total Knee Arthroplasty Surgeon: Eliceo Green Allergies Allergy/AdvReac Type Severity Reaction Status Date / Time No Known Drug Allergies Allergy Unknown Verified 09/25/20 08:58 Home Medications Medication Instructions Recorded Confirmed Type multivitamin 1 tab PO QAM 01/04/20 09/25/20 History furosemide 20 mg tablet 20 mg PO BID #180 tab 05/07/20 09/25/20 Rx apixaban 5 mg tablet 5 mg PO BID 30 Days #60 tab 05/14/20 09/25/20 Rx acetaminophen [Tylenol Extra 1,000 mg PO Q6H PRN 09/07/20 09/25/20 History Strength] cholecalciferol (vitamin D3) 50 mcg PO QAM 09/07/20 09/25/20 History [Vitamin D3] doxazosin 2 mg PO QAM 09/07/20 09/25/20 History levothyroxine [Synthroid] 50 mcg PO QAM 09/07/20 09/25/20 History lisinopril [Zestril] 20 mg PO DAILY 09/07/20 09/25/20 History magnesium oxide 400 mg PO QPM 09/07/20 09/25/20 History spironolactone 50 mg PO QAM 09/07/20 09/25/20 History metoprolol succinate 25 mg 12.5 mg PO DAILY #30 tab 09/21/20 09/25/20 Rx tablet,extended release 24 hr Patient History Medical History Arthritis of knee, left Atrial fibrillation on Eliquis Diastolic dysfunction Hypertension Resistant- monitored closely by PCP and nephrology, no renal artery stenosis, + nephrotic syndrome, currently well controlled per PCP records Nephrotic syndrome Positive RICARDO (antinuclear antibody) Surgical History History of dilatation and curettage 40+ years ago Family History Mother Colorectal cancer, Onset Age: 87 Father , age 78 Hypertension Brother Heart disease Hypertension Denies family history of Ovarian cancer Prostate cancer Breast cancer Social History Smoking Status: Never smoker Second Hand Exposure: No; Do You Dip or Chew Tobacco: No; Hx Alcohol Use: No Hx Substance Use: No Preferred Language: P[place] Communication Ability: Effective Visual Impairment: No Limitations Hearing Ability: Normal Cell Support Operator Required: No Beliefs That Will Affect Care: None marital status: Current Living Situation: Spouse current occupational status: retired Other Information That Helps Us Care for You: No Feels Safe at Home: Yes Safety Concerns: Feels Safe At This Time caffeine: Yes during the past year weight has: remained stable Dental Care, Regularly: Yes Physical Activity Frequency: Does not Exercise Physical Activity Frequency Comment: can not due to physical limitations Seatbelt Use: always Sunscreen Use: Yes Assistive Devices: Glasses Review of Systems Review of Systems: Mild distress and fatigue no headache, blurry or double vision no speech or swallowing issues no chest pain, pressure or palpitations no shortness of breath, cough or wheezes no abdominal pain, nausea or vomiting, diarrhea or constipation no dysuria, hematuria or frequency no focal joint pain or swelling no back pain, CVA tenderness or radicular pain no bruising, bleeding or rashes no focal signs of weakness or numbness or altered sensation no complaints of anxiety or depression.. Physical Exam Physical Exam: The patient appeared well nourished and normally developed. Vital signs as documented. Head exam is normocephalic atraumatic Neck is without JVD, thyromegaly, or carotid bruits. Lungs are clear to auscultation, no focal loss of breath sounds Cardiac exam, Rhythm is regular.. No murmurs, rubs or gallops. Abdominal exam reveals normal bowel sounds, soft non tender, no masses Extremities are nonedematous and both pedal pulses are present Neurologic exam is alert and oriented, no focal loss of strength or sensation Skin is without bruises or rashes Psychologically is without concerns for anxiety or depression Results & Data Results & Data ([facility]) Vital Signs (Past 12 Hours) Vital Signs Temp Pulse Pulse Resp BP BP Pulse Ox 09/25/20 14:50 58 L 16 155/68 H 97 09/25/20 14:20 97.5 F L 54 L 16 152/69 H 98 09/25/20 14:10 97.7 F 49 L 16 131/56 L 97 09/25/20 14:00 47 L 16 126/51 L 98 09/25/20 13:50 51 L 15 145/66 H 98 09/25/20 13:40 60 19 140/59 L 99 09/25/20 13:30 66 22 135/65 98 09/25/20 13:20 62 22 135/68 96 09/25/20 13:10 66 22 138/59 L 100 09/25/20 13:01 97.0 F L 67 20 129/57 L 99 09/25/20 10:04 63 20 165/65 H 98 09/25/20 08:52 98.1 F 72 20 180/70 H 99 PG Care Time/CCT Total # of Minutes Spent Total Time Spent with Patient: Total time spent is greater than 50% in coordination of care (as documented) at patient's floor/unit and/or counseling patient: Coding Level of Care Code 63142 Inpt Consult Level 4 Diagnoses Arthritis of knee, left M17.12 A-fib I48.91 Membranous nephritis N05.2 Diastolic dysfunction I51.89 Hypothyroidism E03.9 DVT prophylaxis Z29.9
[2020-09-25] MEDS: ACETAMINOPHEN 500 MG TAB PO SCH ×2 (15:36→21:20)
[2020-09-25] MEDS: SODIUM CHLORIDE 0.9% 1000ML 1,000 ML IV SCH (15:36)
[2020-09-25] MEDS: SENNA 8.6 MG TAB PO SCH (20:18)
[2020-09-25] MEDS: MAGNESIUM OXIDE 400 MG TAB PO SCH (20:19)
[2020-09-25] MEDS: DOCUSATE SODIUM 100 MG CAP PO SCH (20:19)
[2020-09-25] MEDS: ceFAZolin 1000MG 1,000 MG/7.5 ML SYR IV SCH (20:31)
[2020-09-25] MEDS ORDERED: FUROSEMIDE 20 MG TAB PO SCH (21:00)
[2020-09-26] MEDS: ceFAZolin 1000MG 1,000 MG/7.5 ML SYR IV SCH (03:04)
[2020-09-26] MEDS: SODIUM CHLORIDE 0.9% 1000ML 1,000 ML IV SCH (03:42)
[2020-09-26] MEDS: ACETAMINOPHEN 500 MG TAB PO SCH ×3 (06:10→21:46)
[2020-09-26] MEDS: LEVOTHYROXINE SODIUM 50 MCG TABLET PO SCH (06:11)
[2020-09-26 06:21] LABS: Hematocrit (blood only) 27.1 % (37-47); Hemoglobin 9.3 g/dL (12.0-16.0); Mean Corpuscular Hemoglobin 31.5 pg (25-34); Mean Corpuscular Hgb Conc 34.3 g/dL (32-36); Mean Corpuscular Volume 91.9 fL (80-100); Mean Platelet Volume 9.4 fL (7.4-10.4); Platelet Count 190 K/uL (130-400); RDW Coefficient of Variation 12.7 % (11.5-14.5); RDW Standard Deviation 42.8 fL (36.4-46.3); Red Blood Count 2.95 M/uL (4.2-5.4)
--- NOTE | 2020-09-26 06:46 | Orthopedic Progress Note ---
Date of Service September 26, 2020 Assessment & Plan (1) Arthritis of knee, left: Postop day 1 status post left total knee arthroplasty. PT/OT protocols. Weightbearing as tolerated. DVT prophylaxis-apixaban 5 mg p.o. twice daily starting today, SCDs, JASMEET jason. Pain management as written. BMP pending. DC planning-patient likely planning for home health services upon discharge. Admission and Anticipated Discharge Date Admission Date: September 25, 2020 Subjective Postop day 1 Patient is sitting up in her bed awake and alert. No complaints this morning. Pain is controlled. Denies shortness of breath, chest pain, lightheadedness. Physical Exam Physical Exam: Dressings are clean, dry, and intact. Calves are soft nontender. Neurovascular intact. Toes are mobile. She has good dorsiflexion and plantarflexion of the left foot. Hemovac drainage was 125 mL from the previous shift. Results & Data ([facility]) Vital Signs (Past 12 Hours) Vital Signs Temp Pulse Resp BP Pulse Ox 09/26/20 02:32 36.4 C L 74 18 159/65 H 98 09/25/20 23:00 36.5 C 51 L 20 171/69 H 98 09/25/20 19:25 36.6 C 57 L 20 166/65 H 99 Laboratory Results Laboratory Results WBC 10.40 K/uL (4.8-10.8) 09/26/20 05:52 RBC 2.95 M/uL (4.2-5.4) L 09/26/20 05:52 Hgb 9.3 g/dL (12.0-16.0) L 09/26/20 05:52 Hct 27.1 % (37-47) L 09/26/20 05:52 MCV 91.9 fL (80-100) 09/26/20 05:52 MCH 31.5 pg (25-34) 09/26/20 05:52 MCHC 34.3 g/dL (32-36) 09/26/20 05:52 RDW Std Deviation 42.8 fL (36.4-46.3) 09/26/20 05:52 RDW Coeff of Tiana 12.7 % (11.5-14.5) 09/26/20 05:52 Plt Count 190 K/uL (130-400) 09/26/20 05:52 MPV 9.4 fL (7.4-10.4) 09/26/20 05:52 COVID-19 Eval Order Covid19 IDNow [facility] 09/25/20 08:49 SARS-CoV-2, RNA, NAAT NEGATIVE (NEGATIVE) 09/25/20 08:49 Blood Type O Negative 09/25/20 09:04 Antibody Screen POSITIVE A 09/25/20 09:04 Antibody Identification Anti-D 09/25/20 09:04 Antibody ID Comment 09/25/20 09:04 Crossmatch See Detail 09/25/20 09:04 Impressions Knee X-Ray 09/25/20 13:09 LEFT KNEE 2 VIEWS History: Left total knee arthroplasty. Degenerative arthritis. Postop. FINDINGS: The patient is status post a left total knee arthroplasty. The hardware is intact. No fracture or dislocation. Skin moreno and surgical drains are in place. IMPRESSION: Left total knee arthroplasty. No evidence for hardware complication. ACT 112: Negative or not required by law. Electronically signed by: Abhijit Kinsey M.D. 09/25/2020 1:30 PM
[2020-09-26 06:53] LABS: BUN Creatinine Ratio 38.8 (10-20); Calcium 7.6 mg/dl (8.5-10.1); Creatinine Clr Calc Pharmacy 45.9 ml/min; Est GFR (African American) 61.6 ml/min; Est GFR (Non-African American) 53.1 ml/min; Potassium 4.4 mmol/L (3.5-5.1)
[2020-09-26] MEDS: DOXAZosin MESYLATE TAB 2 MG TAB PO SCH (08:31)
[2020-09-26] MEDS: FUROSEMIDE 20 MG TAB PO SCH ×2 (08:31→21:46)
[2020-09-26] MEDS: SPIRONOLACTONE 25 MG TAB PO SCH (08:31)
[2020-09-26] MEDS: APIXABAN 5 MG TABLET PO SCH ×2 (08:31→21:45)
[2020-09-26] MEDS: METOPROLOL SUCC 25MG EXT REL TAB PO SCH (08:31)
[2020-09-26] MEDS: MULTIVITAMIN TAB PO SCH (08:32)
[2020-09-26] MEDS: CHOLECALCIFEROL 1,000 UNITS 25 MCG TAB PO SCH (08:32)
[2020-09-26] MEDS: DOCUSATE SODIUM 100 MG CAP PO SCH ×2 (08:33→21:45)
[2020-09-26] MEDS ORDERED: lisinopril 20 MG TAB PO ONE ×2 (09:00)
[2020-09-26] MEDS ORDERED: METOPROLOL SUCC 25MG EXT REL TAB PO SCH (09:00)
[2020-09-26] MEDS ORDERED: lisinopril 20 MG TAB PO SCH (09:00)
--- NOTE | 2020-09-26 09:35 | Hospitalist Progress Note ---
Date of Service September 26, 2020 Assessment & Plan (1) Arthritis of knee, left: * POD#1 s/p LEFT TKA with Dr. Green on 09/25 * EBL 5cc. 1L LR [place]-operative period. Pre-op h/h 11.9/35.5 * CATY output 835cc + 80cc, total 915cc since surgery * H/h today 9.3/27.1 -- acute blood loss anemia from surgery and dilutional from IVF as well as patient on Eliquis resumed for DVT prevention post-operatively * CBC in AM Hx membranous glomerulonephritis secondary to uncontrolled refractory hypertension (of note, did have metanephrines in urine, followed by Dr. Shepard -- plans for repeat dose rituximab once recovered from surgery) * Was instructed to d/c her metoprolol by Dr Shepard as HRs 50-60s on prior v isit, but with her afib and rates elevated pre-op was instructed to continue with 12.5mg metoprolol XL from her prior 25mg dose * She was to d/c Amlodipine -- not ordered * To continue on lisinopril 40mg (got half dose today and plans for 40mg 09/27), spironolactone 50, and doxazosin 2mg daily, and furosemide 20mg BID (resumed AM 09/26 but will give extra 20mg dose this evening for total of 40mg given edema/volume up) Had a preoperative stress test in July this year which was unremarkable which was unable to be competed due to HTN. ECHO obtained which showed EF to be 60 to 65% although she has a history of diastolic dysfunction. On numerous diuretics. Suspect some degree of edema from low albumin/proteinuria. --> rec close f/u with Dr. Shepard at d/c (2) A-fib: * paroxysmal, rate controlled noted but metoprolol XL discontinued by nephrology as HRs were in 50-60s * --> This was restarted at 12.5mg XL for rate control given history of afib and elevated HR per * on eliquis --resumed by surgery for DVT prevention * Currently 66bpm (3) Membranous nephritis: * Patient follows with Dr. Longoria has excellent creatinine and glomerular filtration rate typically seems to be bothered most by uncontrolled hypertension. In the past she has received rituximab and is scheduled for an additional dose of rituximab after she recovers from surgery. She typically has significant proteinuria and did have elevated plasma metanephrines in the past. * Cr 1.09 (slightly above baseline and weight slightly up from IVF [place]- operatively) * BP controlled * Resumed lasix this morning 20mg BID, lisinopril to be back at 40mg daily tomorrow (20mg given this morning) * BMP in AM (4) Diastolic dysfunction: * Hx of * [employer] on lasix 20mg BID, lisinopril 40mg, spironolactone 50mg-- see above regarding dosing * Home medications and dosing to be back at usual dose AM 09/27 * No overt volume overload * Monitor clinically (5) Hypothyroidism: * TSH wnl August 2020 * Continued on levothyroxine 50mcg daily (6) DVT prophylaxis: * Eliquis resumed post-operatively Anemia * Noted, normocytic -- acute blood loss on Eliquis (915cc total) for afib/dilutional from IVF. Could be from kidney disease but will check iron studies/b12/folate in am * CBC in AM Dispo: plans for d/c tomorrow per primary service Thank you for allowing hospitalist service to participate in the care of Ms Arredondo. Hospitalist service will follow along/chart check in AM. Admission and Anticipated Discharge Date Admission Date: September 25, 2020 Supervising Physician Co-Signing Physician Notes Attending Attestation: Chart reviewed, care plan d/w KONRAD Barahona. I agree w/ the shaw components of her documentation. POD #1 s/p left TKA. Chronic medical problems stable. Acute blood loss anemia - mild, follow. Membranous nephritis - Cr today 1. Plan per Ms Barahona w/ respect to diuretics. Jonatan Stanley MD Subjective Patient seen this afternoon with at bedside visiting. Doing well. pain controlled. Sore throat resolved. Passing gas but no BM today. Plans on d/c tomorrow after drain pulled as she is worried living so far away if home health did this, but does note minimal drainage today and is hopeful for dc tomorrow. Edema in LE slightly increased today compared to yesterday but much better than in the past. Lasix resumed this morning and usual medications and doses to be on board by tomorrow. Eliquis resumed this morning. She notes starting eliquis last fall after having palpitations/sob and edema and found to be in afib with hypothyroidism, now being treated, and had held this medication for 5 days prior to surgery. No issues noted. No fever, chills, chest pain, shortness of breath, abdominal pain, nausea, vomiting or dysuria at this time. Review of Systems Review of Systems: All systems reviewed & are unremarkable except as noted in HPI & below Physical Exam Physical Exam: The patient appeared well nourished and normally developed. Sitting up in bed, NAD. Comfortable and cooperative Head atraumatic, normocephalic Moist mm, no hearing deficit Neck with minimal JVD, no thyromegaly or bruits Lungs CTAB, no w/c/r, no tachypnea, on room air Cardic RRR, no r/m/g. 2+ edema b/l LE. NVI, pulses palpable bilaterally Abd +BS throughout, soft, non-tender Ext: dressing and sofia wrap to LEFT knee c/d/i with ice pack. Hemovac with scant drainage. pulses palpable bilaterally. NVI. Neuro/Psych: AOx3, euthymic, no focal neurological deficits, moves all extremities Results & Data Results & Data ([facility]) Vital Signs (Past 12 Hours) Vital Signs Temp Pulse Pulse Resp BP BP Pulse Ox 09/26/20 07:45 36.5 C 60 14 168/66 H 99 09/26/20 02:32 36.4 C L 74 18 159/65 H 98 09/25/20 23:00 36.5 C 51 L 20 171/69 H 98 Laboratory Results 09/26/20 09/26/20 09/25/20 Range/Units 05:52 05:52 09:04 WBC 10.40 (4.8-10.8) K/uL RBC 2.95 L (4.2-5.4) M/uL Hgb 9.3 L (12.0-16.0) g/dL Hct 27.1 L (37-47) % MCV 91.9 (80-100) fL MCH 31.5 (25-34) pg MCHC 34.3 (32-36) g/dL RDW Std Deviation 42.8 (36.4-46.3) fL RDW Coeff of Tiana 12.7 (11.5-14.5) % Plt Count 190 (130-400) K/uL MPV 9.4 (7.4-10.4) fL Sodium 139 (136-145) mmol/L Potassium 4.4 (3.5-5.1) mmol/L Chloride 109 H (98-107) mmol/L Carbon Dioxide 26 (21-32) mmol/L Anion Gap 4.0 (3-11) BUN 40 H (7-18) mg/dl Creatinine 1.03 (0.6-1.2) mg/dl Est Cr Clr Drug Dosing 45.9 ml/min Est GFR ( Amer) 61.6 ml/min Est GFR (Non-Af Amer) 53.1 ml/min BUN/Creatinine Ratio 38.8 H (10-20) Glucose 103 H (70-99) mg/dl Calcium 7.6 L (8.5-10.1) mg/dl Blood Type O Negative Antibody Screen POSITIVE A Antibody Identification Anti-D Antibody ID Comment Crossmatch See Detail PG Care Time/CCT Total # of Minutes Spent Total Time Spent with Patient: Total time spent is greater than 50% in coordination of care (as documented) at patient's floor/unit and/or counseling patient: Coding Level of Care Code 32634 Subseq Obs Care Lvl 3 Diagnoses Arthritis of knee, left M17.12 A-fib I48.91 Membranous nephritis N05.2 Diastolic dysfunction I51.89 Hypothyroidism E03.9 DVT prophylaxis Z29.9
[2020-09-26] MEDS ORDERED: FUROSEMIDE 20 MG TAB PO ONE (19:00)
[2020-09-26] MEDS: MAGNESIUM OXIDE 400 MG TAB PO SCH (21:46)
[2020-09-26] MEDS: SENNA 8.6 MG TAB PO SCH (21:46)
[2020-09-27] MEDS: LEVOTHYROXINE SODIUM 50 MCG TABLET PO SCH (05:59)
[2020-09-27] MEDS: ACETAMINOPHEN 500 MG TAB PO SCH (05:59)
[2020-09-27 06:36] LABS: Basophils # (auto) 0.01 K/uL (0-0.2); Basophils % (auto) 0.2 %; Eosinophils # (auto) 0.17 K/uL (0-0.5); Hematocrit (blood only) 27.1 % (37-47); Hemoglobin 9.4 g/dL (12.0-16.0); Immature Granulocytes # (auto) 0.01 K/uL (0.00-0.02); Immature Granulocytes % (auto) 0.2 %; Lymphocytes # (auto) 0.77 K/uL (1.2-3.4); Lymphocytes % (auto) 13.4 %; Mean Corpuscular Hemoglobin 32.1 pg (25-34); Mean Corpuscular Hgb Conc 34.7 g/dL (32-36); Mean Corpuscular Volume 92.5 fL (80-100); Mean Platelet Volume 9.8 fL (7.4-10.4); Monocytes # (auto) 0.79 K/uL (0.11-0.59); Monocytes % (auto) 13.7 %; Neutrophils % (auto) 69.5 %; Platelet Count 198 K/uL (130-400); RDW Standard Deviation 44.2 fL (36.4-46.3); Red Blood Count 2.93 M/uL (4.2-5.4); White Blood Count 5.75 K/uL (4.8-10.8)
[2020-09-27 07:15] LABS: Albumin Level 2.5 gm/dl (3.4-5.0); BUN Creatinine Ratio 48.2 (10-20); Calcium 7.8 mg/dl (8.5-10.1); Creatinine Clr Calc Pharmacy 57.6 ml/min; Est GFR (African American) 81.1 ml/min; Potassium 4.2 mmol/L (3.5-5.1)
[2020-09-27 07:18] LABS: Bilirubin,Total 0.4 mg/dl (0.2-1); Ferritin 229.1 ng/ml (8-388); Globulin 2.6 gm/dl (2.5-4.0); Total Protein 5.1 gm/dl (6.4-8.2)
[2020-09-27 07:52] LABS: Folate (Folic Acid) > 20.00 ng/ml (>5.38); Vitamin B12 901 pg/ml (193-986)
[2020-09-27] MEDS: FUROSEMIDE 20 MG TAB PO SCH (08:14)
[2020-09-27] MEDS: MULTIVITAMIN TAB PO SCH (08:15)
[2020-09-27] MEDS: APIXABAN 5 MG TABLET PO SCH (08:15)
[2020-09-27] MEDS: DOCUSATE SODIUM 100 MG CAP PO SCH (08:15)
[2020-09-27] MEDS: DOXAZosin MESYLATE TAB 2 MG TAB PO SCH (08:15)
[2020-09-27] MEDS: CHOLECALCIFEROL 1,000 UNITS 25 MCG TAB PO SCH (08:15)
[2020-09-27] MEDS: SPIRONOLACTONE 25 MG TAB PO SCH (08:16)
[2020-09-27] MEDS ORDERED: lisinopril 20 MG TAB PO SCH (09:00)
[2020-09-27] MEDS ORDERED: lisinopril 40 MG TAB PO SCH (09:00)
[2020-09-27] MEDS: METOPROLOL SUCC 25MG EXT REL TAB PO SCH (09:38)
--- NOTE | 2020-09-27 09:42 | Hospitalist Progress Note ---
Date of Service September 27, 2020 Assessment & Plan (1) Arthritis of knee, left: * POD#2 s/p LEFT TKA with Dr. Green on 09/25 * EBL 5cc. 1L LR [place]-operative period. Pre-op h/h 11.9/35.5 * CATY removed today * Blood counts improved * Pain controlled -- def to primary * PT/OT -- plans for outpt therapy at d/c * Vit D 32 -- continue supplementation at d/c. 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 Shepard -- plans for repeat dose rituximab once recovered from surgery) Had a preoperative stress test in July this year which was unremarkable which was unable to be competed due to HTN. ECHO obtained which showed EF to be 60 to 65% although she has a history of diastolic dysfunction. On numerous diuretics. Suspect some degree of edema from low albumin/proteinuria. Kidney function stable and back on her usual medications: lisinopril 40mg, spironolactone 50mg, doxazosin 2mg. Was given extra 20mg furosemide last evening for extra edema (improved and kidney function also improved). Also continued on metoprolol XL 12.5mg (half of prior dose) for her afib, rate controlled --> rec close f/u with Dr. Shepard at d/c This morning after reporting increased pain did have feeling of weakness. Sat back in bed and completely resolved. Suspect vasovagal. No CP, SOB, visual changes. Eval again and patient with BP 142/63m, feeling better and walked room with walker without further issues. _--> Discussed using walker at home. SHE NEEDS TO USE UNTIL CLEARED BY OPPT TO USE HER CANE! (2) A-fib: * paroxysmal, rate controlled noted but metoprolol XL discontinued by nephrology as HRs were in 50-60s * --> This was restarted at 12.5mg XL for rate control given history of afib and elevated HR per * on eliquis --resumed by surgery for DVT prevention * Currently 66bpm (3) Membranous nephritis: * Patient follows with Dr. Longoria has excellent creatinine and glom erular filtration rate typically seems to be bothered most by uncontrolled hypertension. In the past she has received rituximab and is scheduled for an additional dose of rituximab after she recovers from surgery. She typically has significant proteinuria and did have elevated plasma metanephrines in the past. * Cr 1.09 (slightly above baseline and weight slightly up from IVF [place]- operatively) -- extra 20mg lasix evening 09/26 for usual 40mg total from prior missed dose --> Cr improved back to baseline 0.82 Usual medications and dosing resumed as above Of note, iron studies obtained. C/w chronic disease 2nd to kidney disease however did have low iron stores and was instructed to take daily 325mg PO supplementation once bowels return to normal and f/u with Dr. Shepard. Also sent message to Dr Shepard alerting her of medication addition to patient's regimen. (4) Diastolic dysfunction: * Hx of * CASHIER TICKET SELLING on lasix 20mg BID, lisinopril 40mg, spironolactone 50mg-- see above regarding dosing * Home medications and dosing to be back at usual dose AM 09/27 * See above * --STABLE (5) Hypothyroidism: * TSH wnl August 2020 * Continued on levothyroxine 50mcg daily (6) DVT prophylaxis: * Eliquis resumed post-operatively Anemia * Noted, normocytic -- acute blood loss on Eliquis (915cc total) for afib/dilutional from IVF. Could be from kidney disease but will check iron studies/b12/folate in am * Iron low as above -- 1x/daily supplementation as above once bowels return to normal * To f/u with Dr. Shepard at d/c Dispo: d/c this afternoon. OPPT arranged Hospitalist service will sign off at this time. Call with any questions/concerns. Admission and Anticipated Discharge Date Admission Date: September 25, 2020 Subjective Patient evaluated this morning. Doing well. Some increased pain once block has worn off but controlled with ordered medications. Drain removed this morning. Blood counts stable and reviewed with patient. Back on her usual medications at this time. Kidney function stable. Swelling slightly improved from yesterday as well. Discussed iron supplementation once bowels return to normal and to use OTC stool softener if constipation occurs with this. Message also sent to Dr. Shepard. No fever, chills, chest pain, shortness of breath, abdominal pain, nausea, vomiting, dysuria at this time. Questions/concerns addressed at this time. Review of Systems Review of Systems: All systems reviewed & are unremarkable except as noted in HPI & below Physical Exam Physical Exam: The patient appeared well nourished and normally developed. Sitting up at side of bed dressed. NAD. Comfortable and cooperative Head atraumatic, normocephalic Moist mm, no hearing deficit Neck with minimal JVD, no thyromegaly or bruits Lungs CTAB, no w/c/r, no tachypnea, on room air Cardic irregularly irregular 66bpm, no r/m/g. 1+ edema b/l LE. NVI, pulses palpable bilaterally Abd +BS throughout, soft, non-tender Ext: dressing and sofia wrap to LEFT knee c/d/i with ice pack. Prevena with green light on. pulses palpable bilaterally. NVI. Neuro/Psych: AOx3, euthymic, no focal neurological deficits, moves all extremities Results & Data Results & Data ([facility]) Vital Signs (Past 12 Hours) Vital Signs Temp Pulse Resp BP Pulse Ox 09/27/20 07:31 36.8 C 71 17 155/72 H 99 09/26/20 22:00 37.3 C 65 18 178/61 H 97 Laboratory Results 09/27/20 09/27/20 09/27/20 Range/Units 05:44 05:44 05:44 WBC (4.8-10.8) K/uL RBC (4.2-5.4) M/uL Hgb (12.0-16.0) g/dL Hct (37-47) % MCV (80-100) fL MCH (25-34) pg MCHC (32-36) g/dL RDW Std Deviation (36.4-46.3) fL RDW Coeff of Tiana (11.5-14.5) % Plt Count (130-400) K/uL MPV (7.4-10.4) fL Immature Gran % (Auto) % Neut % (Auto) % Lymph % (Auto) % Cloud % (Auto) % Eos % (Auto) % Baso % (Auto) % Neut # (Auto) (1.4-6.5) K/uL Lymph # (Auto) (1.2-3.4) K/uL Cloud # (Auto) (0.11-0.59) K/uL Eos # (Auto) (0-0.5) K/uL Baso # (Auto) (0-0.2) K/uL Immature Gran # (Auto) (0.00-0.02) K/uL Sodium 142 (136-145) mmol/L Potassium 4.2 (3.5-5.1) mmol/L Chloride 110 H (98-107) mmol/L Carbon Dioxide 28 (21-32) mmol/L Anion Gap 4.0 (3-11) BUN 40 H (7-18) mg/dl Creatinine 0.82 (0.6-1.2) mg/dl Est Cr Clr Drug Dosing 57.6 ml/min Est GFR ( Amer) 81.1 ml/min Est GFR (Non-Af Amer) 70.0 ml/min BUN/Creatinine Ratio 48.2 H (10-20) Glucose 87 (70-99) mg/dl Calcium 7.8 L (8.5-10.1) mg/dl Iron 24 L (35-150) mcg/dl TIBC 231 L (250-450) mcg/dl Transferrin 181 L (200-360) mg/dl Transferrin % Sat 9 L (15-50) % Ferritin 229.1 (8-388) ng/ml Total Bilirubin 0.4 (0.2-1) mg/dl AST 30 (15-37) U/L ALT 25 (12-78) U/L Alkaline Phosphatase 64 (45-117) U/L Total Protein 5.1 L (6.4-8.2) gm/dl Albumin 2.5 L (3.4-5.0) gm/dl Globulin 2.6 (2.5-4.0) gm/dl Albumin/Globulin Ratio 1.0 (0.9-2) Vitamin B12 901 (193-986) pg/ml 25-OH Vitamin D Total 32.2 (30-100) ng/ml Folate > 20.00 (>5.38) ng/ml 09/27/20 09/26/20 Range/Units 05:44 05:52 WBC 5.75 (4.8-10.8) K/uL RBC 2.93 L (4.2-5.4) M/uL Hgb 9.4 L (12.0-16.0) g/dL Hct 27.1 L (37-47) % MCV 92.5 (80-100) fL MCH 32.1 (25-34) pg MCHC 34.7 (32-36) g/dL RDW Std Deviation 44.2 (36.4-46.3) fL RDW Coeff of Tiana 13.0 (11.5-14.5) % Plt Count 198 (130-400) K/uL MPV 9.8 (7.4-10.4) fL Immature Gran % (Auto) 0.2 % Neut % (Auto) 69.5 % Lymph % (Auto) 13.4 % Cloud % (Auto) 13.7 % Eos % (Auto) 3.0 % Baso % (Auto) 0.2 % Neut # (Auto) 4.00 (1.4-6.5) K/uL Lymph # (Auto) 0.77 L (1.2-3.4) K/uL Cloud # (Auto) 0.79 H (0.11-0.59) K/uL Eos # (Auto) 0.17 (0-0.5) K/uL Baso # (Auto) 0.01 (0-0.2) K/uL Immature Gran # (Auto) 0.01 (0.00-0.02) K/uL Sodium (136-145) mmol/L Potassium (3.5-5.1) mmol/L Chloride (98-107) mmol/L Carbon Dioxide (21-32) mmol/L Anion Gap (3-11) BUN (7-18) mg/dl Creatinine (0.6-1.2) mg/dl Est Cr Clr Drug Dosing ml/min Est GFR ( Amer) ml/min Est GFR (Non-Af Amer) ml/min BUN/Creatinine Ratio (10-20) Glucose (70-99) mg/dl Calcium (8.5-10.1) mg/dl Iron (35-150) mcg/dl TIBC (250-450) mcg/dl Transferrin (200-360) mg/dl Transferrin % Sat (15-50) % Ferritin (8-388) ng/ml Total Bilirubin (0.2-1) mg/dl AST (15-37) U/L ALT (12-78) U/L Alkaline Phosphatase (45-117) U/L Total Protein (6.4-8.2) gm/dl Albumin 2.4 L (3.4-5.0) gm/dl Globulin (2.5-4.0) gm/dl Albumin/Globulin Ratio (0.9-2) Vitamin B12 (193-986) pg/ml 25-OH Vitamin D Total (30-100) ng/ml Folate (>5.38) ng/ml PG Care Time/CCT Total # of Minutes Spent Total Time Spent with Patient: Total time spent is greater than 50% in coordination of care (as documented) at patient's floor/unit and/or counseling patient: Coding Level of Care Code 26176 Subseq Hosp Care Lvl 3 Diagnoses Arthritis of knee, left M17.12 A-fib I48.91 Membranous nephritis N05.2 Diastolic dysfunction I51.89 Hypothyroidism E03.9 DVT prophylaxis Z29.9
--- NOTE | 2020-09-27 10:52 | Orthopedic Progress Note ---
Date of Service September 27, 2020 Assessment & Plan (1) Arthritis of knee, left: Postop day 2 status post left total knee arthroplasty. Patient progressing well with her physical therapy and Occupational Therapy. Pain is controlled. Patient has opted to not use home health services and do outpatient physical therapy. Plan for discharge to home today. Admission and Anticipated Discharge Date Admission Date: September 25, 2020 Subjective Postop day 2 Patient is sitting up in bed at the bedside. She has undergone OT and PT today and is doing well. She states that she had a little more discomfort today after all of the blocks have worn off. Her pain is controlled though and she is hoping to go home today. She denies any shortness of breath, chest pain, lightheadedness. Physical Exam Physical Exam: Romana dressing is clean, dry, and intact. Calves are soft nontender. Neurovascular is intact. Toes are mobile. Results & Data ([facility]) Vital Signs (Past 12 Hours) Vital Signs Temp Pulse Resp BP Pulse Ox 09/27/20 07:31 36.8 C 71 17 155/72 H 99 Laboratory Results Laboratory Results WBC 5.75 K/uL (4.8-10.8) 09/27/20 05:44 RBC 2.93 M/uL (4.2-5.4) L 09/27/20 05:44 Hgb 9.4 g/dL (12.0-16.0) L 09/27/20 05:44 Hct 27.1 % (37-47) L 09/27/20 05:44 MCV 92.5 fL (80-100) 09/27/20 05:44 MCH 32.1 pg (25-34) 09/27/20 05:44 MCHC 34.7 g/dL (32-36) 09/27/20 05:44 RDW Std Deviation 44.2 fL (36.4-46.3) 09/27/20 05:44 RDW Coeff of Tiana 13.0 % (11.5-14.5) 09/27/20 05:44 Plt Count 198 K/uL (130-400) 09/27/20 05:44 MPV 9.8 fL (7.4-10.4) 09/27/20 05:44 Immature Gran % (Auto) 0.2 % 09/27/20 05:44 Neut % (Auto) 69.5 % 09/27/20 05:44 Lymph % (Auto) 13.4 % 09/27/20 05:44 [place] % (Auto) 13.7 % 09/27/20 05:44 Eos % (Auto) 3.0 % 09/27/20 05:44 Baso % (Auto) 0.2 % 09/27/20 05:44 Neut # (Auto) 4.00 K/uL (1.4-6.5) 09/27/20 05:44 Lymph # (Auto) 0.77 K/uL (1.2-3.4) L 09/27/20 05:44 [place] # (Auto) 0.79 K/uL (0.11-0.59) H 09/27/20 05:44 Eos # (Auto) 0.17 K/uL (0-0.5) 09/27/20 05:44 Baso # (Auto) 0.01 K/uL (0-0.2) 09/27/20 05:44 Immature Gran # (Auto) 0.01 K/uL (0.00-0.02) 09/27/20 05:44 Sodium 142 mmol/L (136-145) 09/27/20 05:44 Potassium 4.2 mmol/L (3.5-5.1) 09/27/20 05:44 Chloride 110 mmol/L (98-107) H 09/27/20 05:44 Carbon Dioxide 28 mmol/L (21-32) 09/27/20 05:44 Anion Gap 4.0 (3-11) 09/27/20 05:44 BUN 40 mg/dl (7-18) H 09/27/20 05:44 Creatinine 0.82 mg/dl (0.6-1.2) 09/27/20 05:44 Est Cr Clr Drug Dosing 57.6 ml/min 09/27/20 05:44 Est GFR ( Amer) 81.1 ml/min 09/27/20 05:44 Est GFR (Non-Af Amer) 70.0 ml/min 09/27/20 05:44 BUN/Creatinine Ratio 48.2 (10-20) H 09/27/20 05:44 Glucose 87 mg/dl (70-99) 09/27/20 05:44 Calcium 7.8 mg/dl (8.5-10.1) L 09/27/20 05:44 Iron 24 mcg/dl (35-150) L 09/27/20 05:44 TIBC 231 mcg/dl (250-450) L 09/27/20 05:44 Transferrin 181 mg/dl (200-360) L 09/27/20 05:44 Transferrin % Sat 9 % (15-50) L 09/27/20 05:44 Ferritin 229.1 ng/ml (8-388) 09/27/20 05:44 Total Bilirubin 0.4 mg/dl (0.2-1) 09/27/20 05:44 AST 30 U/L (15-37) 09/27/20 05:44 ALT 25 U/L (12-78) 09/27/20 05:44 Alkaline Phosphatase 64 U/L (45-117) 09/27/20 05:44 Total Protein 5.1 gm/dl (6.4-8.2) L 09/27/20 05:44 Albumin 2.5 gm/dl (3.4-5.0) L 09/27/20 05:44 Globulin 2.6 gm/dl (2.5-4.0) 09/27/20 05:44 Albumin/Globulin Ratio 1.0 (0.9-2) 09/27/20 05:44 Vitamin B12 901 pg/ml (193-986) 09/27/20 05:44 25-OH Vitamin D Total 32.2 ng/ml (30-100) 09/27/20 05:44 Folate > 20.00 ng/ml (>5.38) 09/27/20 05:44 COVID-19 Eval Order Covid19 [facility]Now [facility] 09/25/20 08:49 SARS-CoV-2, RNA, NAAT NEGATIVE (NEGATIVE) 09/25/20 08:49 Blood Type O Negative 09/25/20 09:04 Antibody Screen POSITIVE A 09/25/20 09:04 Antibody Identification Anti-D 09/25/20 09:04 Antibody ID Comment 09/25/20 09:04 Crossmatch See Detail 09/25/20 09:04
--- NOTE | 2020-09-27 13:41 | Discharge Summary ---
Date of Service September 27, 2020 Admission HPI Per Admitting Provider Ms Arredondo is a 74 year old female who complains of left knee pain, presents for pre-op prior to a left total knee replacement at [facility]. She presents with pain and stiffness in the left knee. She states that the symptoms have been chronic non-traumatic. Currently the patient states that the symptoms are moderate- severe. The pain is described as aching, sharp and throbbing. The symptoms are aggravated by stairs, daily activities, driving, exercise, first steps while awake, jumping, kneeling, repetitive activities, sleeping in any position, squatting, standing and weight bearing. In addition to knee pain she is also experiencing decreased mobility, difficulty bending, difficulty going to sleep, instability, limping, nighttime awakening, pain, stiffness, tenderness and weakness. Admission Exam Per Admitting Provider Physical Exam: Ht: 5ft 8in Wt: 72.58kg BP: 158/80 Constitutional: WD/WN, vitals as above no acute distress Respiratory: normal respiratory effort, lungs clear to auscultation no respiratory distress, no labored breathing and does not use accessory muscles Cardiovascular: RRR, no murmur, no edema Gastrointestinal (Abdomen): normal bowel sounds, soft, nontender, no hepatosplenomegaly Musculoskeletal: Knee: + knee abnormal to inspection (left knee), + effusion (+1 effusion), + limited ROM of knee (ROM 0/3/110), + knee ROM with crepitation, + joint line tenderness (medial joint line) and + Sabina's sign positive; no deformity, no skin erythema, no ecchymosis, no valgus laxity, no varus laxity, anterior drawer test negative, Macrina's sign negative and pivot shift test negative Principal Diagnosis Left knee osteoarthritis Discharge Exam Subjective Postop day 2 Patient is sitting up in bed at the bedside. She has undergone OT and PT today and is doing well. She states that she had a little more discomfort today after all of the blocks have worn off. Her pain is controlled though and she is hoping to go home today. She denies any shortness of breath, chest pain, lightheadedness. Physical Exam Physical Exam: Roly dressing is clean, dry, and intact. Calves are soft nontender. Neurovascular is intact. Toes are mobile. Results & Data ([facility]) Vital Signs (Past 12 Hours) Vital Signs Temp Pulse Resp BP Pulse Ox 09/27/20 07:31 36.8 C 71 17 155/72 H 99 Laboratory Results Laboratory Results WBC 5.75 K/uL (4.8-10.8) 09/27/20 05:44 RBC 2.93 M/uL (4.2-5.4) L 09/27/20 05:44 Hgb 9.4 g/dL (12.0-16.0) L 09/27/20 05:44 Hct 27.1 % (37-47) L 09/27/20 05:44 Discharge Data Allergies Allergy/AdvReac Type Severity Reaction Status Date / Time No Known Drug Allergies Allergy Unknown Verified 09/25/20 08:58 Consultations 09/25/20 14:36 Consult Hospitalist Routine Procedures Performed Operation Date: 09/25/20 11:15 Actual Procedures p Left Total Knee Arthroplasty(Left) - Eliceo Green DO Ordered Studies 09/25/20 10:58 US - OR guided needle placemen Routine Hospital Course (1) Arthritis of knee, left: Patient was admitted on the above-noted date and had the above-noted surgery performed which she tolerated well.On her first postoperative day, she was sitting in her bed awake and alert. She had no complaints. Pain was controlled. Dressings were clean, dry, and intact. Calves were soft nontender. Neurovascular was intact. Toes were mobile. Hemoglobin was 9.3. Patient was started on PT and OT protocols and continued on DVT prophylaxis. By her second postoperative day, she was sitting up in bed at the bedside. She had undergone OT and PT protocols and felt she was doing well. She had a little bit more discomfort in the knee today than yesterday but was feeling well. Pain currently at that time was controlled. Roly dressing was clean, dry, and intact. Calves were soft and nontender. Neurovascular was intact. Toes were mobile. Repeat hemoglobin was 9.4. It was decided that she was stable for discharge. Later that morning, nursing related that the patient was feeling weak and somewhat anxious. She was seen by Amelia Barahona PA-C. It was found that her blood pressures during this weak episode were stable. When she laid back down, [place]le BP was in the 140s. Medicine service felt the patient was stable for discharge. The patient felt she was feeling fine and was felt secondary to pain and/or pain medication. She was otherwise remaining stable and was felt that she could be discharged home. I discussed the case in detail with Amelia Barahona PA-C. Total Time Total Time Spent Total Time Spent (In Minutes): 5 Discharge Plan Discharge Items Patient Disposition: Home - Self-Care Reason For Visit: Unilateral Primary Osteoarthritis Discharge Diagnosis: Left Knee Osteoarthritis Activity: Per Instructions section Weightbearing: Left weightbearing Weightbearing Comment: as tolerated with walker Non-emergency contact: Surgeon Call non-emergency contact if: you have any medication questions, your pain is not controlled, your temperature is above 101.5, your wound has increased redness and your wound has increased drainage Follow-up/Referrals: Tiff Montero, [Primary Care Provider] - Diet: Regular Addtl Attending Provider Instructions: ACTIVITY RECOMMENDATIONS: SELF CARE INSTRUCTIONS AFTER TOTAL KNEE REPLACEMENT A. You may need to continue a physical therapy program after discharge from the hospital. There are several options available to you. Your doctor will assist you in selecting the best one for you. 1. An out-patient facility 2 to 3 times a week for therapy or home therapy. 2. Continue working on all exercises taught to you in the hospital. Your goals should be to increase bending of your knee to 90 degrees and beyond and to fully straighten your knee. B. You may progress at your own pace from walking with a walker or crutches to a cane; then to no assistive devices. C. Make walking a part of your daily routine. Be up as much as comfortable with rest periods throughout the day. Rest with leg elevation is very important. Use the ice wrap frequently for the first 3-4 weeks. D. There are no restrictions on activities. You may ride in a car, shop, participate in it application administrator and all social activities. E. Wear the long elastic stockings (JASMEET hose) 20 hours a day for 2 weeks after surgery. They can be removed several times a day for laundering and for a bath. F. You may shower, no tub baths until cleared by your doctor. SPECIAL CARE INSTRUCTIONS: VERY IMPORTANT TO READ AND REVIEW A. There are a few signs you need to watch for after you are home. Call [facility] if you notice any of the followin. Increased severe knee pain. Some pain is expected especially when you exercise. 2. Increased swelling in your leg or knee; pain or swelling of the calf muscle in either lower leg. 3. Any fluid drainage from the incision. 4. Shortness of breath or chest pain. B. Please call [facility] at if you have any concerns or questions about your operation or recovery. The doctor or his nurse will return your call promptly. C. You must take antibiotics before dental work, bladder, bowel or other surgery. Your doctor will provide you with a permanent care to carry describing this precaution. IMPORTANT: * REMEMBER TO TAKE APIXABAN 5MG IN THE MORNING AND EVENING.. * HIGH RISK PATIENTS MAY BE PRESCRIBED A STRONGER BLOOD THINNER. THIS WILL BE PROVIDED AT DISCHARGE. * CALL IF INCREASED PAIN, REDNESS, DRAINAGE OR FEVER GREATER THAT 101. * WEAR JASMEET HOSE 20 HOURS PER DAY FOR 2 WEEKS. * ROLY Dressing - This is a large suction dressing covering your incision. This will help pull any excess drainage from the wound and allow your incision to heal properly. You may shower with this if you can keep the unit outside of the shower. If any bleeding or leakage is noted please call your doctor's office. This will remain on your incision for 7 days and then should be removed. This can be done yourself or by the home nursing staff if applicable. The entire unit is disposable once removed. Once removed, keep incision clean and dry. If redness or drainage is noted, please call your surgeon. . FOLLOW UP VISIT: If appointment is not already scheduled: Please call [facility] to make a follow-up appointment for 2 weeks after your surgery at . Addtl Long Chain Quiller Tender Provider Instructions: Your iron stores were checked and you were found to have low iron stores. You should start daily ferrous sulfate (iron) 325mg by mouth daily for the next several weeks once your bowels are moving and should discuss with Dr. Shepard at follow up about continued use vs increasing to twice daily, however once daily is probably more than sufficient. Please note this can cause your stool to be darker and worsening constipation. You should utilize stool softener over the counter if this occurs to prevent constipation. Stand-Alone Forms: My [facility], Opioid Pain Management, Smoking Cessation Medications and DC Order Prescriptions: New acetaminophen 500 mg Tablet 1,000 mg PO Q8 14 Days Qty: 84 RF: 0 cefadroxil 500 mg capsule 500 mg PO BID Qty: 28 RF: 1 polyethylene glycol 3350 [Miralax] 17 gram powder in packet 17 g PO DAILY PRN (Reason: constipation) Qty: 5 RF: 0 ferrous sulfate 325 mg (65 mg iron) tablet 325 mg PO DAILY Qty: 30 RF: 0 oxycodone 5 mg Tablet 5 mg PO Q4H MDD 6 PRN (Reason: pain) Qty: 30 RF: 0 Continued furosemide 20 mg tablet 20 mg PO BID Qty: 180 RF: 3 Eliquis 5 mg tablet 5 mg PO BID 30 Days Qty: 60 RF: 5 metoprolol succinate 25 mg tablet extended release 24 hr 12.5 mg PO DAILY Qty: 30 RF: 2 multivitamin Tablet 1 tab PO QAM RF: 0 cholecalciferol (vitamin D3) [Vitamin D3] 50 mcg (2,000 unit) Tablet 50 mcg PO QAM RF: 0 magnesium oxide 400 mg magnesium Tablet 400 mg PO QPM RF: 0 levothyroxine [Synthroid] 50 mcg tablet 50 mcg PO QAM RF: 0 lisinopril [Zestril] 40 mg tablet 20 mg PO DAILY RF: 0 spironolactone 50 mg tablet 50 mg PO QAM RF: 0 doxazosin 2 mg tablet 2 mg PO QAM RF: 0 Discontinued acetaminophen [Tylenol Extra Strength] 500 mg Capsule 1,000 mg PO Q6H PRN (Reason: Pain) RF: 0 Discharge Orders: Discharge Order (Routine); Ordered 09/27/20 Ordered By: Henrique Townsend/Other Patient Handouts: DVT Post Op Prevention, Understanding Knee Replacement, Knee Replacement Total Dc Admission Data Admit Date/Time: 09/25/20 13:09 Attending Provider: Eliceo Green Admit Provider: Eliceo Green Primary Care Provider: Tiff Montero Other Providers: Jonatan [facility] Other Interventions: Discharge Summary Assessment (RN) Last Done: 09/27/20 11:22
== END 2020-09-27 13:02 | disposition home or self-care (01) ==
LOC: 3E 08:20 → ASU 08:20

== ENCOUNTER 2021-06-25 04:59 | Inpatient (IN) ==
--- NOTE | 2021-04-15 11:21 | Anesthesiology Consultation ---
Date of Service April 15, 2021 Assessment & Plan Chart Review Chart Review: Acceptable Risk for Surgery Consults Requested none History Surgery Operation Date: 06/12/21 07:00 Proposed Procedures p Right Total Knee Arthroplasty - Eliceo Green DO Allergies Allergy/AdvReac Type Severity Reaction Status Date / Time No Known Allergies Allergy Verified 04/12/21 07:21 Medications Home Medications Medication Instructions Recorded Confirmed Last Taken multivitamin 1 tab PO QAM 01/04/20 04/12/21 09/23/20 levothyroxine 50 mcg tablet 50 mcg PO QAM 09/07/20 04/12/21 04/02/21 (Synthroid) doxazosin 2 mg tablet 2 mg PO QAM tab 10/04/20 04/12/21 04/02/21 apixaban 5 mg tablet (Eliquis) 5 mg PO BID 30 Days #60 tab 11/02/20 04/12/21 04/02/21 furosemide 20 mg tablet 20 mg PO QAM 03/26/21 04/12/21 04/02/21 metoprolol tartrate 25 mg tablet 12.5 mg PO BID tab 03/26/21 04/12/21 04/02/21 lisinopril 40 mg tablet 40 mg PO DAILY #90 tab 04/15/21 Unknown Past Medical History Medical History Atrial fibrillation NO HX CARDIOVERSION/ on Eliquis Diastolic dysfunction Hypertension Resistant- monitored closely by PCP and nephrology, no renal artery stenosis, + nephrotic syndrome, currently well controlled per PCP records Iron deficiency anemia HX Nephrotic syndrome PT DENIES HX KIDNEY PROBLEMS, OR KIDNEY STONES Osteoarthritis UPCOMING RIGHT KNEE REPLACEMENT JUN 12 2021 Poor historian Positive RICARDO (antinuclear antibody) Thyroid disease PT DOES NOT KNOW REASON FOR LEVOTHYROXINE Vitamin D deficiency Past Family History Family History Mother Colorectal cancer, Onset Age: 87 Father , age 78 Hypertension Brother Heart disease Hypertension Denies family history of Ovarian cancer Prostate cancer Breast cancer Past Surgical History Surgical History (Updated 04/12/21 @ 07:20 by Renate Steinberg RN) History of dilatation and curettage 40+ years ago History of left knee replacement SEPTEMBER 2020 History of right cataract surgery Social History Smoking Status: Never smoker Hx Alcohol Use: No Hx Substance Use: No substance use type: does not use
--- NOTE | 2021-04-29 14:33 | PAT Medication Instructions ---
Medication Instructions Date of Service April 29, 2021 Home Medications Medication Instructions Recorded apixaban 5 mg tablet (Eliquis) 5 mg PO BID 30 Days #60 tab 11/02/20 multivitamin 1 tab PO QAM levothyroxine 50 mcg tablet (Synthroid) 50 mcg PO QAM doxazosin 2 mg tablet 2 mg PO QAM apixaban 5 mg tablet (Eliquis) 5 mg PO BID furosemide 20 mg tablet 20 mg PO QAM metoprolol tartrate 25 mg tablet 12.5 mg PO BID lisinopril 40 mg tablet 40 mg PO QAM ASK your prescriber and surgeon apixaban 5 mg tablet (Eliquis) 5 mg PO BID (in order for spinal anesthesia, Apixaban/Eliquis needs to be stopped 72 hours/3 days before surgery. Please check if okay with doctor that prescribes this to you) DO NOT take the morning of surgery multivitamin 1 tab PO QAM furosemide 20 mg tablet 20 mg PO QAM lisinopril 40 mg tablet 40 mg PO QAM Take morning of surgery With a small sip of water, OTHERWISE NOTHING TO EAT OR DRINK AFTER MIDNIGHT: levothyroxine 50 mcg tablet (Synthroid) 50 mcg PO QAM doxazosin 2 mg tablet 2 mg PO QAM metoprolol tartrate 25 mg tablet 12.5 mg PO BID Take evening before surgery metoprolol tartrate 25 mg tablet 12.5 mg PO BID Other Notes If you have any questions please call us at [phone] or [phone] or [phone] or [phone]
--- NOTE | 2021-04-29 15:08 | PAT Medication Instructions ---
Medication Instructions Date of Service April 29, 2021 Home Medications Medication Instructions Recorded apixaban 5 mg tablet (Eliquis) 5 mg PO BID 30 Days #60 tab 11/02/20 multivitamin 1 tab PO QAM levothyroxine 50 mcg tablet (Synthroid) 50 mcg PO QAM doxazosin 2 mg tablet 2 mg PO QAM apixaban 5 mg tablet (Eliquis) 5 mg PO BID furosemide 20 mg tablet 20 mg PO QAM metoprolol tartrate 25 mg tablet 12.5 mg PO BID lisinopril 40 mg tablet 40 mg PO QAM ASK your prescriber and surgeon apixaban 5 mg tablet (Eliquis) 5 mg PO BID(in order for spinal or epidural anesthesia, Eliquis needs to be stopped 72 hours/3 days before surgery. Please check if okay with doctor that prescribes this to you) DO NOT take the morning of surgery multivitamin 1 tab PO QAM furosemide 20 mg tablet 20 mg PO QAM lisinopril 40 mg tablet 40 mg PO QAM Take morning of surgery With a small sip of water, OTHERWISE NOTHING TO EAT OR DRINK AFTER MIDNIGHT: levothyroxine 50 mcg tablet (Synthroid) 50 mcg PO QAM doxazosin 2 mg tablet 2 mg PO QAM metoprolol tartrate 25 mg tablet 12.5 mg PO BID Take evening before surgery metoprolol tartrate 25 mg tablet 12.5 mg PO BID Other Notes If you have any questions please call us at [phone] or [phone] or [phone] or [phone]
--- NOTE | 2021-05-13 11:52 | Anesthesiology Consultation ---
Date of Service May 13, 2021 Assessment & Plan (1) Encounter for pre-operative examination: - surgeon ordered medical clearance. - will attempt to obtain report from 07/2020 stress test. - Positive antibodies on T&S: Ariana at blood bank made aware. 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 Hypertension with h/o hypertension for >10 years. No CKD, has almost 4 g of proteinuria on 24 hour urine with no history of diabetes. Prior renal artery Doppler was unremarkable. Aldosterone, renin, random cortisol normal. Plasma metanephrine elevated more than 2 times of normal. Received 2 doses of rituximab 1 g, 2 weeks apart in April, tolerated well, no side effect. Had maintenance dose of rituximab in October 2020. Office blood pressure persistently elevated but home blood pressure very well controlled. on lisinopril 20 mg daily and Lasix 20 mg daily..." - PCP office visit 03/26/2021: "...She is on Eliquis 5 mg BID and Metoprolol 12.5 mg BID for Afib and diastolic dysfunction. She has no cardiac complaints at this time.HTN - she is on Aldactone 50 mg daily, Lisinopril 40 mg daily, Lasix 20 mg BID. She reports white coat syndrome. She monitors at home and it is well controlled.She follows with nephrology for proteinuria. She has a lung nodule that she gets regular chest CTs to follow..." - Outpatient joint assessment: Patient is currently scheduled for inpatient pathway. If re-evaluated pending system levels during current pandemic/surgeon requests outpatient pathway, patient is not recommended candidate for outpatient joint program from anesthesia standpoint. Patient and her express they do not feel he could fully assist her and deny additional considerations for home support at this time. - COVID screening: Per assessment on 05/13/2021: Travel screen negative, no known COVID-19 positive contacts or current COVID-19 related symptoms in past 2 weeks. Patient vaccinated. Surgeon arranging preop COVID testing, scheduled 06/10/2021 THERESA Darnell. Awaiting results. Chart Review Chart Review: Acceptable Risk for Surgery (pending surgeon ordered medical clearance) and Patient seen in Pre Admission Testing Teaching & Discussion Pre-Anesthesia Teaching/Discussion Notes: Instructed NPO after midnight before surgery, except medications with 15 cc of water. Medication instructions provided according to the PAT guidelines. History Surgery Operation Date: 06/12/21 07:00 Proposed Procedures p Right Total Knee Arthroplasty - Eliceo Green DO Height/Weight Height: 5 ft 8 in Weight: 68.3 kg Allergies Allergy/AdvReac Type Severity Reaction Status Date / Time No Known Allergies Allergy Verified 04/29/21 13:16 Medications Home Medications Medication Instructions Recorded Confirmed Last Taken multivitamin 1 tab PO QAM 01/04/20 04/29/21 04/17/21 levothyroxine 50 mcg tablet 50 mcg PO QAM 09/07/20 04/29/21 04/18/21 05:00 (Synthroid) doxazosin 2 mg tablet 2 mg PO QAM tab 10/04/20 04/29/21 04/18/21 05:00 furosemide 20 mg tablet 20 mg PO QAM 03/26/21 04/29/21 04/18/21 05:00 metoprolol tartrate 25 mg tablet 12.5 mg PO BID tab 03/26/21 04/29/21 04/18/21 05:00 lisinopril 40 mg tablet 40 mg PO QAM 04/29/21 04/29/21 Unknown apixaban 5 mg tablet (Eliquis) 5 mg PO BID 30 Days #60 tab 05/02/21 Unknown cholecalciferol (vitamin D3) 2,000 PO QAM 05/13/21 Unknown Past Medical History Medical History (Updated 05/13/21 @ 12:37 by Linda Silverman PA-C) Atrial fibrillation on Eliquis Diastolic dysfunction Hypertension Resistant- monitored closely by PCP and nephrology, no renal artery stenosis, + nephrotic syndrome, significantly elevated in clinic, home readings currently well controlled per nephrology and PCP records Hypothyroidism Iron deficiency anemia Nephrotic syndrome follows with [facility] neph[facility] Dr. Shepard-"secondary to primary membranous nephropathy...no CKD" Osteoarthritis Poor historian Positive RICARDO (antinuclear antibody) Pulmonary nodule "There is a 7 mm soft solid nodular density in the superior segment of the left lower lobe. This is unchanged from 04/16/2020 and of low suspicion" Chest CT report 08/23/2020 Vitamin D deficiency Patient denies h/o stroke, seizures, heart attack, heart failure, DM, blood clots or blood transfusions. Exercise / Class Metabolic Activity II 4-5 Yardwork/Stairs/Walk up hill (denies CP or SOB with 1 FOS) Past Family History Family History Mother Colorectal cancer, Onset Age: 87 Father , age 78 Hypertension Brother Heart disease Hypertension Denies family history of Ovarian cancer Prostate cancer Breast cancer Past Surgical History Surgical History History of dilatation and curettage 40+ years ago History of left knee replacement 09/25/2020: SAB at L3-L4 + PNB. No issues per anesthesia postop progress note. History of right cataract surgery Hx of left cataract extraction Past Anesthesia History No Hx of Anesthesia Complications and No Family Hx of Anesthesia Complications History of PONV No Hx of PONV and No Hx of Motion Sickness Social History Smoking Status: Never smoker Do You Dip or Chew Tobacco: No Hx Alcohol Use: No Hx Substance Use: No substance use type: does not use Review of Systems Patient denies chest pain, shortness of breath, dyspnea on exertion, lightheadedness, dizziness, headache, visual changes, nausea, vomiting, numbness/weakness, gait instability, snoring, witnessed apneas, reflux, fever, chills, cough, wheezing, or palpitations. Physical Exam Vital Signs Vitals BP 194/72 (Pt reports chronic elevated BP in offices, also documented by nephrology and PCP) (BP 220/80 at last nephrology office visit 03/2021, "Office blood pressure persistently elevated but home blood pressure very well controlled." and 196/70 at last PCP visit) They report home BP readings 120-150s/70-80s. She denies symptoms today in clinic. Case discussed with Dr. Guillory with patient in clinic and he advised nothing further needed at this time, patient to have upcoming medical clearance for surgery. P 45 (nephrology 03/27/2021 visit: "Heart rate has been low around high 40s to l ow 50s on metoprolol which was started during hospitalization in April.") TEMP SP02 98% on RA RESP 17 Physical Full cervical extension range of motion without pain Full TMJ range of motion TMD 3.5 finger breaths Mallampati Score 3 Dentition: intact, denies missing, loose or chipped teeth, caps/crowns, implants or bridges Lungs: normal respiratory effort. Clear throughout to auscultation, no adventitious breath sounds Cardiac: bradycardic rate, regular rhythm, no murmurs noted Carotid arteries: negative bruit bilat Extremities: non-pitting edema distal lower extremities bilat, nonerythematous, nontender, normal temperature; chronic per pt and nephrology note Lab Results Anesthesia Preop Results Results Anesthesia Widget: WBC 4.02 K/uL (4.8-10.8) L 05/13/21 Hgb 12.8 g/dL (12.0-16.0) 05/13/21 Hct 38.8 % (37-47) 05/13/21 Plt 210 K/uL (130-400) 05/13/21 Na 142 mmol/L (136-145) 05/13/21 K 4.2 mmol/L (3.5-5.1) 05/13/21 Cl 107 mmol/L (98-107) 05/13/21 CO2 32 mmol/L (21-32) 05/13/21 BUN 25 mg/dl (7-18) H 05/13/21 Creat 0.69 mg/dl (0.6-1.2) 05/13/21 Glucose Level 104 mg/dl (70-99) H 05/13/21 PT 10.3 Seconds (9.0-12.0) 05/13/21 PTT 30.9 Seconds (21.0-31.0) 05/13/21 INR 1.0 (0.9-1.1) 05/13/21 HA1c 5.5 % (4.5-5.6) 05/13/21 Urine Color Yellow 05/13/21 Urine Appearance Clear (Clear) 05/13/21 Urine pH 5.5 (4.5-7.5) 05/13/21 Urine Specific [place] 1.011 (1.000-1.030) 05/13/21 Urine Protein 3+ (Negative) H 05/13/21 Urine Glucose (UA) Negative (Negative) 05/13/21 Urine Ketones Negative (Negative) 05/13/21 Urine Blood 2+ (Negative) H 05/13/21 Urine Nitrite Negative (Negative) 05/13/21 Urine Bilirubin Negative (Negative) 05/13/21 Urine Urobilinogen Negative (Negative) 05/13/21 Urine Leukocyte Esterase Negative (Negative) 05/13/21 Urine WBC (Auto) 0 /hpf (0-5) 05/13/21 Urine RBC (Auto) 10-30 /hpf (0-4) H 05/13/21 Urine Hyaline Casts (Auto) 0 /lpf (0-5) 05/13/21 Urine Epithelial Cells (Auto) 5-10 /lpf (0-5) H 05/13/21 Urine Bacteria (Auto) Negative (Negative) 05/13/21 Blood Type O Negative 05/13/21 Antibody Screen POSITIVE A 05/13/21 Testing Electrocardiogram Date: 05/13/21 Sinus bradycardia, rate 45. Otherwise normal ECG When compared with ECG of 16-APR-2020, significant changes have occurred. (change from atrial fibrillation with RVR, poor R wave progression, nonspecific T wave abnormality in inferior leads) Chest X-Ray Date: 05/13/21 No acute process. Echocardiogram Date: 08/08/20 EF 60-65% Mild cLVH No regional wall motion abnormalities Stress Test Date: 08/08/20
--- NOTE | 2021-05-21 13:36 | History & Physical Report ---
Date of Service May 21, 2021 date of surgery: 06/12/21 Procedure: Right Total Knee Arthroplasty Surgeon: Eliceo Green Assessment & Plan (1) Arthritis of right knee: Plan: Risks and benefits of procedure discussed in detail today, patient would like to proceed with a right total knee replacement at [facility] as scheduled. will obtain medical clearance from Dr Montero prior to surgery as well as obtain PATs at [facility]. Will continue with her Eliquis post op, f/u 2 weeks post op for routine post-operative care and x-ray, sooner if having any problems. will make arrangements for HHPT at the time of discharge. At this point in time, has failed conservative measures and would like to proceed with surgical intervention. The risks and benefits have been discussed including, but not limited to, risk of infection, nerve injury, stiffness, loss of motion, failure to improve, etc. Reasonable outcomes and options of treatment were discussed. An explanation of appropriate alternatives to the procedure that may be advantageous were discuss ed and their risks and benefits, as well as the risks and benefits of not proceeding with treatment. I offered to answer any additional inquiries concerning the treatment involved. All the patient's questions were answered. The patient is agreeable, understanding of the treatment plan and alternatives, and wishes to proceed with the treatment plan. History of Present Illness Chief Complaint: Right knee pain Primary Care Provider: Tiff Montero DO Patient is a 75 year old female who complains of right knee pain, presents for pre-op evaluation prior to a right total knee replacement by Dr Green at [facility]. She complains of pain and stiffness in her right knee. Currently the patient states that the symptoms are moderate-severe and describes it as sharp and throbbing. Her symptoms are aggravated by ascending stairs, daily activities, first steps while awake walking. she is currently ambulating with a cane secondary to her pain. unable to take NSAIDs due to being on anticoagulants. Allergies Allergy/AdvReac Type Severity Reaction Status Date / Time No Known Allergies Allergy Verified 05/14/21 13:07 Home Medications Medication Instructions Recorded Confirmed Type multivitamin 1 tab PO QAM 01/04/20 05/14/21 History levothyroxine 50 mcg tablet 50 mcg PO QAM 09/07/20 05/14/21 History (Synthroid) doxazosin 2 mg tablet 2 mg PO QAM tab 10/04/20 05/14/21 History furosemide 20 mg tablet 20 mg PO QAM 03/26/21 05/14/21 History metoprolol tartrate 25 mg tablet 12.5 mg PO BID tab 03/26/21 05/14/21 History lisinopril 40 mg tablet 40 mg PO QAM 04/29/21 05/14/21 History apixaban 5 mg tablet (Eliquis) 5 mg PO BID 30 Days #60 tab 05/02/21 05/14/21 Rx cholecalciferol (vitamin D3) 50 50 mcg PO DAILY 05/14/21 05/14/21 History mcg (2,000 unit) capsule Past Med/Surg History Medical History A-fib Diastolic dysfunction Hypertension Resistant- monitored closely by PCP and nephrology, no renal artery stenosis, + nephrotic syndrome, significantly elevated in clinic, home readings currently well controlled per nephrology and PCP records Hypothyroidism Iron deficiency anemia Nephrotic syndrome follows with [facility] nephrology Dr. Shepard-"secondary to primary membranous nephropathy...no CKD" Osteoarthritis Positive RICARDO (antinuclear antibody) Pulmonary nodule "There is a 7 mm soft solid nodular density in the superior segment of the left lower lobe. This is unchanged from 04/16/2020 and of low suspicion" Chest CT report 08/23/2020 Vitamin D deficiency Surgical History History of dilatation and curettage 40+ years ago History of left knee replacement 09/25/2020: SAB at L3-L4 + PNB. No issues per anesthesia postop progress note. History of right cataract surgery Hx of left cataract extraction Family History Mother Colorectal cancer, Onset Age: 87 Father , age 78 Hypertension Brother Heart disease Hypertension Denies family history of Ovarian cancer Prostate cancer Breast cancer Social History Smoking Status: Never smoker Second Hand Exposure: No; Hx Alcohol Use: No Hx Substance Use: No Preferred Language: Korean Communication Ability: Effective Visual Impairment: No Limitations Hearing Ability: Normal Juvenile Court Judge Required: No Beliefs That Will Affect Care: None marital status: Current Living Situation: Spouse current occupational status: retired Feels Safe at Home: Yes caffeine: Yes during the past year weight has: remained stable Dental Care, Regularly: Yes Physical Activity Frequency: Does not Exercise Physical Activity Frequency Comment: can not due to physical limitations Seatbelt Use: always Sunscreen Use: Yes Assistive Devices: Cane Review of Systems Review of Systems: All systems reviewed & are unremarkable except as noted in HPI & below Constitutional: no fever, no chills and no sweats Respiratory: no cough and no dyspnea Cardiovascular: no chest pain, no dyspnea and no orthopnea Gastrointestinal: no abdominal pain, no nausea and no vomiting Musculoskeletal: as per Subjective / HPI Physical Exam Physical Exam: HT: 5ft 8in WT: 68.3kg Constitutional: WD/WN, vitals as above no acute distress Respiratory: normal respiratory effort, lungs clear to auscultation no respiratory distress, no labored breathing and does not use accessory muscles Cardiovascular: Rate/Rhythm: + irregularly irregular Gastrointestinal (Abdomen): normal bowel sounds, soft, nontender, no hepa tosplenomegaly Musculoskeletal: Knee: + knee abnormal to inspection (RIGHT KNEE- ), + effusion (+1 effusion), + surgical incision (well healed portals), + limited ROM of knee (ROM 0/3/110), + knee ROM with crepitation, + joint line tenderness (medial joint line) and + Sabina's sign positive; no deformity, no skin erythema, no ecchymosis, no valgus laxity, no varus laxity, anterior drawer test negative, Macrina's sign negative and pivot shift test negative Results & Data Results & Data ([facility]) Diagnostic Findings Right Knee X-ray: Right knee series showing advanced degenerative changes to the right knee, narrowing of the lateral compartment and patello-femoral joint with patellar spurring noted, findings showing joint space narrowing of the lateral compartment and patello-femoral joint, osteophyte formation and subchondral sclerosis noted. overall valgus alignment. no acute bony pathology noted.
--- NOTE | 2021-06-18 08:31 | History & Physical Report ---
Date of Service June 18, 2021 date of surgery: 06/25/21 Procedure: Right Total Knee Arthroplasty Surgeon: Eliceo Green Assessment & Plan (1) Arthritis of right knee: Plan: Risks and benefits of procedure discussed in detail today, patient would like to proceed with a right total knee replacement at [facility] as scheduled. will obtain medical clearance from Dr Montero prior to surgery as well as obtain PATs at [facility]. Will continue with her Eliquis post op, f/u 2 weeks post op for routine post-operative care and x-ray, sooner if having any problems. will make arrangements for HHPT at the time of discharge. At this point in time, has failed conservative measures and would like to proceed with surgical intervention. The risks and benefits have been discussed including, but not limited to, risk of infection, nerve injury, stiffness, loss of motion, failure to improve, etc. Reasonable outcomes and options of treatment were discussed. An explanation of appropriate alternatives to the procedure that may be advantageous were discus sed and their risks and benefits, as well as the risks and benefits of not proceeding with treatment. I offered to answer any additional inquiries concerning the treatment involved. All the patient's questions were answered. The patient is agreeable, understanding of the treatment plan and alternatives, and wishes to proceed with the treatment plan. History of Present Illness Chief Complaint: Right knee pain Primary Care Provider: Tiff Montero DO Patient is a 75 year old female who complains of right knee pain, presents for pre-op evaluation prior to a right total knee replacement by Dr Green at [facility]. She complains of pain and stiffness in her right knee. Currently the patient states that the symptoms are moderate-severe and describes it as sharp and throbbing. Her symptoms are aggravated by ascending stairs, daily activities, first steps while awake walking. she is currently ambulating with a cane secondary to her pain. unable to take NSAIDs due to being on anticoagulants. Allergies Allergy/AdvReac Type Severity Reaction Status Date / Time No Known Allergies Allergy Verified 05/14/21 13:07 Home Medications Medication Instructions Recorded Confirmed Type multivitamin 1 tab PO QAM 01/04/20 05/14/21 History lisinopril 40 mg tablet 40 mg PO QAM 04/29/21 05/14/21 History apixaban 5 mg tablet (Eliquis) 5 mg PO BID 30 Days #60 tab 05/02/21 05/14/21 Rx cholecalciferol (vitamin D3) 50 50 mcg PO DAILY 05/14/21 05/14/21 History mcg (2,000 unit) capsule levothyroxine 50 mcg tablet 50 mcg PO QAM #90 tab 05/29/21 Rx (Synthroid) doxazosin 2 mg tablet 2 mg PO QAM #90 tab 06/13/21 Rx furosemide 20 mg tablet 20 mg PO QAM #90 tab 06/13/21 Rx metoprolol tartrate 25 mg tablet 12.5 mg PO BID #90 tab 06/13/21 Rx Past Med/Surg History Medical History A-fib Diastolic dysfunction Hypertension Resistant- monitored closely by PCP and nephrology, no renal artery stenosis, + nephrotic syndrome, significantly elevated in clinic, home readings currently well controlled per nephrology and PCP records Hypothyroidism Iron deficiency anemia Nephrotic syndrome follows with [facility] nephrology Dr. Shepard-"secondary to primary membranous nephropathy...no CKD" Osteoarthritis Positive RICARDO (antinuclear antibody) Pulmonary nodule "There is a 7 mm soft solid nodular density in the superior segment of the left lower lobe. This is unchanged from 04/16/2020 and of low suspicion" Chest CT report 08/23/2020 Vitamin D deficiency Surgical History History of dilatation and curettage 40+ years ago History of left knee replacement 09/25/2020: SAB at L3-L4 + PNB. No issues per anesthesia postop progress note. History of right cataract surgery Hx of left cataract extraction Family History Mother Colorectal cancer, Onset Age: 87 Father , age 78 Hypertension Brother Heart disease Hypertension Denies family history of Ovarian cancer Prostate cancer Breast cancer Social History Smoking Status: Never smoker Second Hand Exposure: No; Hx Alcohol Use: No Hx Substance Use: No Preferred Language: Mohawk Communication Ability: Effective Visual Impairment: No Limitations Hearing Ability: Normal Analytical Lead Required: No Beliefs That Will Affect Care: None marital status: Current Living Situation: Spouse current occupational status: retired Feels Safe at Home: Yes caffeine: Yes during the past year weight has: remained stable Dental Care, Regularly: Yes Physical Activity Frequency: Does not Exercise Physical Activity Frequency Comment: can not due to physical limitations Seatbelt Use: always Sunscreen Use: Yes Assistive Devices: Cane Review of Systems Constitutional: no fever, no chills and no sweats Respiratory: no cough and no dyspnea Cardiovascular: no chest pain, no dyspnea and no orthopnea Gastrointestinal: no abdominal pain, no nausea and no vomiting Musculoskeletal: as per Subjective / HPI Physical Exam Physical Exam: HT: 5ft 8in WT: 68.3kg Constitutional: WD/WN, vitals as above no acute distress Respiratory: normal respiratory effort, lungs clear to auscultation no respiratory distress, no labored breathing and does not use accessory muscles Cardiovascular: Rate/Rhythm: + irregularly irregular Gastrointestinal (Abdomen): normal bowel sounds, soft, nontender, no hepatosplenomegaly Musculoskeletal: Knee: + knee abnormal to inspection (RIGHT KNEE- ), + effusion (+1 effusion), + surgical incision (well healed portals), + limited ROM of knee (ROM 0/3/110), + knee ROM with crepitation, + joint line tenderness (medial joint line) and + Sabina's sign positive; no deformity, no skin erythema, no ecchymosis, no valgus laxity, no varus laxity, anterior drawer test negative, Macrina's sign negative and pivot shift test negative Results & Data Results & Data ([facility]) Diagnostic Findings Right Knee X-ray: Right knee series showing advanced degenerative changes to the right knee, narrowing of the lateral compartment and patello-femoral joint with patellar spurring noted, findings showing joint space narrowing of the lateral compartment and patello-femoral joint, osteophyte formation and subchondral sclerosis noted. overall valgus alignment. no acute bony pathology noted.
[2021-06-25] MEDS ORDERED: ROPIVACAINE 0.5% HCL/PF 150 MG, BUPIVACAINE 0.75% MPF 20 ML, EPINEPHrine 30MG/30ML (OR ... INFIL SCH (06:00)
[2021-06-25] MEDS ORDERED: ceFAZolin 2000MG 2,000 MG/15 ML SYR IV SCH (06:00)
[2021-06-25] MEDS ORDERED: GABAPENTIN 300 MG CAP PO SCH (06:00)
[2021-06-25] MEDS ORDERED: METOCLOPRAMIDE HCL 10 MG TABLET PO SCH (06:00)
[2021-06-25] MEDS ORDERED: TRANEXAMIC ACID 1,000 MG **IV Pre-op IV SCH (06:00)
[2021-06-25] MEDS ORDERED: FAMOTIDINE 20 MG TAB PO SCH (06:00)
[2021-06-25] MEDS ORDERED: oxyCODONE HCL 10 MG TABCR (OxyCONTIN) PO SCH (06:00)
[2021-06-25] MEDS ORDERED: ACETAMINOPHEN 500 MG TAB PO SCH (06:00)
[2021-06-25] MEDS ORDERED: TRANEXAMIC ACID 1,000 MG **IV Intra-op IV SCH (06:00)
[2021-06-25] MEDS ORDERED: LR 500ML BOLUS, THEN 15ML/HR IV SCH (06:00)
[2021-06-25] MEDS ORDERED: CeleBREX 200 MG CAP PO SCH (06:00)
[2021-06-25] MEDS ORDERED: BUPIVACAINE 0.25% 30 ML VIAL ONE (06:20)
[2021-06-25] MEDS ORDERED: BUPIVACAINE 0.5 % 5 MG/1 ML PF 10ML VIAL ONE (06:20)
[2021-06-25] MEDS ORDERED: EPINEPHrine INJ 1 MG/ML AMP ONE (06:20)
[2021-06-25] MEDS ORDERED: DEXAMETHASONE SOD INJ 4 MG/ML VIAL ONE (06:20)
[2021-06-25] MEDS ORDERED: MIDAZOLAM HCL 1 MG/ML 2ML VIAL ONE (06:45)
[2021-06-25] MEDS ORDERED: LIDOCAINE 2% 2 ML VIAL/AMP(20MG/ML) INFIL ONE (06:45)
[2021-06-25] MEDS ORDERED: PROPOFOL IV EMULSION 10 MG/ML 20 ML VIAL IV ONE (06:45)
[2021-06-25] MEDS ORDERED: ORTHO JOINT ANESTHETIC ONE (06:58)
--- NOTE | 2021-06-25 07:07 | History & Physical Bridge Note ---
Date of Service June 25, 2021 History & Physical Bridge Note I have examined the patient, reviewed the History & Physical and in the interval since the performance of the History & Physical I have noted the following changes of clinical significance: no changes noted
[2021-06-25] MEDS ORDERED: ATROPINE SULFATE 0.1 MG/ML 10ML SYR IV PRN (07:25)
[2021-06-25] MEDS ORDERED: ONDANSETRON INJ 2 MG/ML 2 ML VIAL IV PRN ×2 (07:25→09:48)
[2021-06-25] MEDS ORDERED: PROMETHAZINE HCL 6.25 MG in SODIUM CHLORIDE 0.9% 50 ML IV PRN (07:25)
[2021-06-25] MEDS ORDERED: fentaNYL citrate 100 MCG/2 ML VIAL IV PRN (07:25)
[2021-06-25] MEDS ORDERED: ePHEDrine sulfate 50 MG/ML AMP IV PRN (07:25)
--- NOTE | 2021-06-25 08:22 | Operative Report ---
Post Operative Report Pre & Post Diagnosis Operation Date: 06/25/21 07:15 Pre-Op Diagnosis: Right Knee Osteoarthritis Post-Op Diagnosis: Right Knee Osteoarthritis I identified the patient and participated in the time-out.: Yes Procedure Operation Date: 06/25/21 07:15 Actual Procedures p Right Total Knee Arthroplasty, Cemented(Right) utilizing [employer] In journey 2 patient matched total knee arthroplasty size femur 4 tibia for polyfifteen patella 29 oval Eliceo Green DO Surgeon Eliceo Green DO Staff Reporter Henrique SILVESTRE Estimated Blood Loss 10 Findings Consistent with Post-Op Diagnosis Patient presents with severe end-stage tricompartmental degenerative joint disease of the right knee with valgus alignment significant lateral tibial bone loss subchondral sclerosis marginal osteophytes eburnated [id number] tricompartmentally moderate to large effusion Specimens Bone and cartilage Drains Medium bore Hemovac Anesthesia Type MAC Spinal Regional Complications none Disposition Accompanied Patient To Recovery: No Disposition: Recovery Room Indications Patient presents after failed attempted conservative management clinic physical therapy anti-inflammatories relative rest activity modification corticosteroid injection viscosupplementation the above intraoperative findings are noted Description of Procedure After proper prepping and draping of the Right lower extremity anterior midline incision was made over the region of the extensor extensor mechanism after me ticulous hemostasis was obtained and maintained in subcutaneous tissues a medial parapatellar incision was made The patella was subluxed lateralward the medial lateral gutter were cleaned from any hypertrophic synovitis and scar tissue of the distal femoral block was placed and the distal femoral osteotomy cut was made subsequently the chamfers anterior and posterior osteotomy cuts were made utilizing the 4-in-1 block the tibia was subsequently subluxed anteriorward medial and ateral meniscal remnants were excised in their entirety remnants of the anterior and posterior cruciate ligaments were excised in their entirety excellent exposure of the proximal tibia was obtained the tibial osteotomy guide was placed on the proximal tibial osteotomy cut was made once again the knee was irrigated with copious amounts of sterile saline solution the patella was subsequently everted lateralward thickened scar tissue around the patella was removed the patella was subsequently cut utilizing a freehand technique and was drilled prepared for final preparation and placement of patella socially flexion-extension gaps were checked and the equal and symmetric trials were placed to the appropriate femoral and tibial trials with poly-spacer being placed for equal flexion and extension gaps and full range of motion including extension to 0 and flexion to 140 the trial components after having been taken to recovery range of motion was subsequently removed meticulous hemostasis was obtained and maintained subsequently a knee block injection of joint cocktail including ropivacaine 0.5% 150 mg. Bupivacaine 0.5% epinephrine 1-200,030 mL's toradol 30 mg dexamethasone 4 mg ketamine 10 mg clonidine 100 micrograms normal saline solution 30 mg was infiltrated into the soft tissues of the posterior knee medial lateral gutters and periosteal synovium special attention was paid to protect neurovascular structures at all times subsequently trial components having been removed the knee was irrigated with sterile saline solution. debris was removed the proximal tibia was subsequently prepared and was made ready for the placement of the tibial component tibial component was also cemented and tamped into position the femoral component was subsequently placed and cemented in the position the patellar component was subsequently cemented in position because hemostasis once again obtained and maintained wound having been thoroughly irrigated with debridement and debridement lavage was performed as well as a medial parapatellar incision closed with #1 Vicryl in interrupted fashion subcutaneous was closed with #2 Vicryl skin was closed with skin clips. PA-C was necessary for prepping and drapping as well as wound closure of deep fascia Sub cutaneous tissue and skin and was necessary for the case. A sterile compressive dressing was placed patient was taken to recovery in stable condition of report dictated by Peter I attest to the content of the Intraoperative Record and any orders documented therein. Any exceptions are noted below.Due to the complex nature of the procedure, the entire surgery was performed with the operational assistance of Shan SILVESTRE The executive personal assistant, under direct supervision, was involved in the actual performance of all aspects of the surgical procedure including hemostasis, tissue retraction and incision, instrument management, patient po sitioning, and wound closure. I attest to the content of the Intraoperative Record and any orders documented therein. Any exceptions are noted below.
--- NOTE | 2021-06-25 09:21 | Anesthesiology Progress Note ---
Date of Service June 25, 2021 Anesthesia Post Procedure Vital Signs Vital Signs: Temp Pulse Resp BP Pulse Ox 06/25/21 09:10 57 L 16 157/59 H 100 06/25/21 08:59 36.1 C L 70 16 160/60 H 99 06/25/21 05:40 36.7 C 64 16 195/72 H 98 Pain Intensity Right Knee: Pain Intensity: 0 Transfer of Care Handoff Completed per policy Notes Mental Status: alert / awake / arousable Patient Amnestic to Procedure: Yes Nausea / Vomiting: adequately controlled Pain: adequately controlled Airway Patency, RR, SpO2: stable & adequate BP & HR: stable & adequate Hydration State: stable & adequate Neuraxial Anesthesia: was administered and sensory block is resolving Anesthetic Complications: no major complications apparent and Pt Satisfied with anesthetic care
[2021-06-25] MEDS ORDERED: HYDROmorphone INJ 0.5 MG/0.5 ML SYR IV PRN (09:48)
[2021-06-25] MEDS ORDERED: MAGNESIUM HYDROXIDE SUSP 30 ML UDC PO PRN (09:48)
[2021-06-25] MEDS ORDERED: NALOXONE HCL 0.4 MG/1 ML VIAL/CARP IV PRN (09:48)
[2021-06-25] MEDS ORDERED: oxyCODONE HCL IR 5 MG TAB (IMMEDIATE RELEASE) PO PRN (09:48)
[2021-06-25] MEDS ORDERED: bisacodyL 10 MG SUPP PR PRN (09:48)
[2021-06-25] MEDS ORDERED: diphenhydrAMINE 50 MG/ML VIAL IV PRN (09:48)
--- NOTE | 2021-06-25 09:51 | XRay Report ---
TWO VIEWS RIGHT KNEE CLINICAL HISTORY: Postoperative examination. FINDINGS: AP and crosstable lateral portable views of the right knee are obtained. A right knee arthr oplasty is in near anatomic alignment. There has been undersurface remodeling of the patella. No acut e fracture is seen. There are expected postoperative changes around the knee including skin clips, a surgical drain, soft tissue edema, and subcutaneous gas. IMPRESSION: Expected postoperative changes status post right knee arthroplasty. No acute fracture is seen. ACT 112: Negative or not required by law. Electronically signed by: Clifton Murphy M.D. 06/25/2021 9:50 AM
[2021-06-25] MEDS: SODIUM CHLORIDE 0.9% 1000ML 1,000 ML IV SCH ×2 (10:05→20:30)
[2021-06-25] MEDS: ACETAMINOPHEN 500 MG TAB PO SCH ×2 (13:38→21:01)
[2021-06-25] MEDS: ceFAZolin 1000MG 1,000 MG/7.5 ML SYR IV SCH (15:24)
[2021-06-25] MEDS: METOPROLOL TARTRATE 25 MG TAB PO SCH (19:23)
[2021-06-25] MEDS: DOCUSATE SODIUM 100 MG CAP PO SCH (19:23)
[2021-06-25] MEDS: SENNA 8.6 MG TAB PO SCH (19:24)
[2021-06-26] MEDS: ceFAZolin 1000MG 1,000 MG/7.5 ML SYR IV SCH (00:35)
[2021-06-26] MEDS: ACETAMINOPHEN 500 MG TAB PO SCH ×3 (04:12→21:27)
[2021-06-26] MEDS: LEVOTHYROXINE SODIUM 50 MCG TABLET PO SCH (04:12)
[2021-06-26] MEDS: lisinopril 40 MG TAB PO SCH (04:31)
[2021-06-26 06:26] LABS: BUN Creatinine Ratio 40.7 (10-20); Calcium 7.9 mg/dl (8.5-10.1); Creatinine Clr Calc Pharmacy 58.5 ml/min; Est GFR (African American) 81.8 ml/min; Est GFR (Non-African American) 70.5 ml/min; Potassium 3.7 mmol/L (3.5-5.1)
[2021-06-26 06:52] LABS: Hematocrit (blood only) 30.6 % (37-47); Hemoglobin 10.3 g/dL (12.0-16.0); Mean Corpuscular Hemoglobin 31.8 pg (25-34); Mean Corpuscular Hgb Conc 33.7 g/dL (32-36); Mean Corpuscular Volume 94.4 fL (80-100); Platelet Count 179 K/uL (130-400); Red Blood Count 3.24 M/uL (4.2-5.4); White Blood Count 8.86 K/uL (4.8-10.8)
[2021-06-26] MEDS: MULTIVITAMIN TAB PO SCH (09:02)
[2021-06-26] MEDS: DOXAZosin MESYLATE TAB 2 MG TAB PO SCH (09:02)
[2021-06-26] MEDS: METOPROLOL TARTRATE 25 MG TAB PO SCH (09:02)
[2021-06-26] MEDS: DOCUSATE SODIUM 100 MG CAP PO SCH ×2 (09:02→21:26)
[2021-06-26] MEDS: CHOLECALCIFEROL 1,000 UNITS 25 MCG TAB PO SCH (09:03)
--- NOTE | 2021-06-26 09:58 | Orthopedic Progress Note ---
Date of Service June 26, 2021 Assessment & Plan (1) Arthritis of right knee: Plan: Right total knee arthroplasty. Paulo butler called for syncopal episode. Patient is being moved down to [facility] telemetry for further monitoring. Plan to admit. Likely cause was receiving pain medication along with her cardiac meds. Please see medical consult. PT/OT protocols. Weightbearing as tolerated. DVT prophylaxis-apixaban 5 mg p.o. twice daily; Start with tonight's dose unless otherwised advised by Med Service Pain management. Oxycodone dc'd. Tramadol ordered. DC planning - Pt planning for outpt PT. Admission and Anticipated Discharge Date Admission Date: June 25, 2021 Subjective POD [address] with Physical Therapist. Pt appears to be ambulating well. Returns to room and is sitting her chair at the bedside. Pain controlled. No complaints. Addendum: I was discussing the patient's case with Sarah Caldwell PA-C c oncerning her hypertension. At that point in time, a paulo butler was called for the patient's room. Upon entering the room, Dr. Jonatan Fontaine, Minal Workman PA-C, and Sarah Caldwell PA-C along with nursing staff were attending to the patient. Patient was pale, awake and conversant. Denying CP, SOB. Patient stating that she was sitting in her chair and began to get fairly lightheaded. She apparently called for help which at that point patient appeared to be having a syncopal episode. Paulo butler team arrived quickly. Physical Exam 2 Physical Exam: Dressings are clean, dry, and intact. Calves are soft and nontender. Neurovascular is intact. Toes are mobile. She has good dorsiflexion plantarflexion of the right foot. Hemovac drainage was 50 mL from the previous shift. Please see hospitalist service note for further exam paulo butler. Results & Data ([facility]) Vital Signs (Past 12 Hours) Vital Signs Temp Pulse Resp BP BP Pulse Ox 06/26/21 07:35 36.6 C 64 18 182/72 H 96 06/26/21 05:53 189/70 H 06/26/21 04:08 36.6 C 64 16 205/62 H 94 06/26/21 00:34 65 181/76 H 06/25/21 22:24 36.7 C 60 18 200/78 H 95 Laboratory Results Laboratory Results WBC 8.86 K/uL (4.8-10.8) 06/26/21 05:37 RBC 3.24 M/uL (4.2-5.4) L 06/26/21 05:37 Hgb 10.3 g/dL (12.0-16.0) L 06/26/21 05:37 Hct 30.6 % (37-47) L 06/26/21 05:37 MCV 94.4 fL (80-100) 06/26/21 05:37 MCH 31.8 pg (25-34) 06/26/21 05:37 MCHC 33.7 g/dL (32-36) 06/26/21 05:37 Plt Count 179 K/uL (130-400) 06/26/21 05:37 Sodium 138 mmol/L (136-145) 06/26/21 05:37 Potassium 3.7 mmol/L (3.5-5.1) 06/26/21 05:37 Chloride 106 mmol/L (98-107) 06/26/21 05:37 Carbon Dioxide 27 mmol/L (21-32) 06/26/21 05:37 Anion Gap 5 (3-11) 06/26/21 05:37 BUN 33 mg/dl (6-23) H 06/26/21 05:37 Creatinine 0.81 mg/dl (0.6-1.2) 06/26/21 05:37 Est Cr Clr Drug Dosing 58.5 ml/min 06/26/21 05:37 Est GFR ( Amer) 81.8 ml/min 06/26/21 05:37 Est GFR (Non-Af Amer) 70.5 ml/min 06/26/21 05:37 BUN/Creatinine Ratio 40.7 (10-20) H 06/26/21 05:37 Glucose 98 mg/dl (70-99(Fasting)) 06/26/21 05:37 Calcium 7.9 mg/dl (8.5-10.1) L 06/26/21 05:37 SARS-CoV-2, RNA, NAAT NEGATIVE (NEGATIVE) 06/25/21 Unknown Blood Type O Negative 06/25/21 05:28 Antibody Screen POSITIVE A 06/25/21 05:28 Antibody Identification Anti-D 06/25/21 05:28 Antibody ID Comment 06/25/21 05:28 Crossmatch See Detail 06/25/21 05:28 Impressions Knee X-Ray 06/25/21 09:09 TWO VIEWS RIGHT KNEE CLINICAL HISTORY: Postoperative examination. FINDINGS: AP and crosstable lateral portable views of the right knee are obtained. A right knee arthroplasty is in near anatomic alignment. There has been undersurface remodeling of the patella. No acute fracture is seen. There are expected postoperative changes around the knee including skin clips, a surgical drain, soft tissue edema, and subcutaneous gas. IMPRESSION: Expected postoperative changes status post right knee arthroplasty. No acute fracture is seen. ACT 112: Negative or not required by law. Electronically signed by: Clifton Murphy M.D. 06/25/2021 9:50 AM
[2021-06-26] MEDS ORDERED: traMADol HCL 50 MG TABLET PO PRN (10:20)
[2021-06-26] MEDS ORDERED: NALOXONE HCL 0.4 MG/1 ML VIAL/CARP IV STA (10:35)
[2021-06-26] MEDS ORDERED: hydrALAZINE HCL 20 MG/ML VIAL IV PRN (11:02)
[2021-06-26] MEDS ORDERED: cloNIDine HCL 0.1 MG TAB PO PRN (11:03)
--- NOTE | 2021-06-26 11:04 | Hospitalist Consultation ---
Date of Consultation June 26, 2021 Assessment & Plan (1) Sinus bradycardia: * POD #1, patient was sitting in the chair and became overly weak. She did not lose consciousness, denied dizziness or chest pain * Code purple called * Patient found to be in a sinus bradycardia with a rate of 32 bpm * linter operator showed no evidence of heart block. Patient was in a sinus rhythm without atrial fibrillation * She does take chronic beta-blockade (had 12.5 mg of metoprolol this morning) * Was given oxycodone for pain control * Metabolic panel normal this morning * Treated with 1 mg atropine and heart rate improved to 68 bpm * At this point, suspect likely opiate induced in the setting of chronic beta- blockade * Will give 0.4 mg IV Narcan now and recommend withholding all opiate medications. Would advise Ultram for pain control * Recommend transferring to [facility] telemetry for continued cardiac monitoring * I have added a TSH and mag to ensure these are normal * Will continue to follow (2) Anemia: * Preop hemoglobin 12.8. Hemoglobin today is 10.3 * EBL 10 cc with limited blood and Hemovac * Suspect normal blood loss from surgery. Also could be delusional component as her fluid balance is +3590 * Will continue to monitor (3) Arthritis of right knee: * S/p right TKA on 06/[address] Green * Uneventful perioperative course * Recommend adequate postoperative pain management (again would avoid opiates as outlined above), incentive spirometry, PT/OT, and DVT prophylaxis (patient takes chronic Eliquis and this has been continued) (4) Hypothyroidism: * TSH will be obtained given bradycardic episode today * Continue Synthroid. If TSH abnormal, may adjust dose (5) Diastolic dysfunction: * Does not appear to be in fulminant CHF * Would advise any additional IV fluids as fluid balance thus far is +3.5 L * Continue Lasix as prior to hospitalization * Echocardiogram reviewed from 07/29 showing EF of 60 to 65% with no regional wall motion abnormality (6) A-fib: * Initially was in a sinus bradycardia. Currently in a sinus rhythm with controlled rate * Hold beta-sunny for now given bradycardic episode this morning * Eliquis resumed by ortho. agree with this. (7) Accelerated hypertension: * BP has been running 1 80-200 systolic. Currently 154 systolic * Continue Cardura, lisinopril, and Lasix as prior to hospitalization * Clonidine for SBP >/=160, DBP >/=100 or IV Hydralazine 10mg for SBP >/=180, DBP >/=110 * May have hospital induced accelerated HTN. Will monitor will continue to follow Patient seen along side Dr. Jonatan Fontaine. Case D/W him. Supervising Physician Co-Signing Physician Notes I personally saw and examined the patient. I verified all shaw points and agree with Mae Caldwell PA-C with the following exceptions and/or additions: 75 yo female admission for elective TKA day 1. Responded to code luke. Patient pale appearing but with normal mentation, repeatedly asking to go to the bathroom. Unable to get BP on arrival, HR 30-35 bpm, regular but with occasional skipped beats. Placed on glass decorator and p waves appeared to be present before each QRS. She reported no chest pain, shortness of breath or previous LA. Given unable to achieve a blood pressure at that time, atropine 1mg IV was given and HR improved >60 bpm. EKG performed after atropine given and showed NSR without ischemic changes. On review of chart appears she had her first dose of opiates this morning with 10mg oxycodone. She also takes metoprolol tartrate 12.5mg PO BID. History of atrial fibrillation - this was not observed on the glass decorator. A/P Sinus bradycardia - improved s/p atropine 1mg IV. No chest pain or shortness of breath prior to or after giving this. Suspect related to oxycodone in setting of metoprolol. Agree with holding metoprolol although without the oxycodone this can likely be restarted on discharge. Monitor on telemetry for AV jocelyne block. No pain following Narcan given. Hypertension - Continue her current medications. Discontinued clonidine as above to avoid further bradycardia. Continue to use hydralazine PRN for sBP > 180. History of Present Illness Reason for Consultation: Responded to [facility] Requesting Physician: Henrique Palomo PA-C Attending Physician: Eliceo Green DO History of Present Illness Mrs. Arredondo is a 75-year-old white female with an underlying past medical history of HTN, atrial fibrillation, CHF, hypothyroidism, and OA failing co nservative measures. Medicine responded to a code purple and subsequently consulted. She underwent an elective right total knee arthroplasty by Dr. Green on 06/25. Had an uneventful perioperative course and was doing well. Initially was going to discharge to home today but was having accelerated HTN despite her antihypertensive medications. Spoke briefly with Henrique Palomo regarding this but prior to formal consult being done, patient was sitting at the chair and became extremely weak. When the nurse went to check on her, she was mendez and clammy and had a notable heart rate of 32. A code purple was called. Patient seemed to be in a sinus bradycardia at 32 to 38 bpm. Had been given 1 mg of atropine by Dr. Jonatan Fontaine and heart rate subsequently improved to 68. Upon further review, she is on metoprolol 12.5 mg twice daily (which she did receive today) and oxycodone for pain. Oxycodone was administered approximately 45 minutes to 1 hour prior to this event. Patient denied any chest pain, shortness of breath, dizziness, lightheadedness, palpitations, diaphoresis, nausea or vomiting. Just overall felt weak. Blood pressure had been running 180-200 systolic. Obtained following admi nistration of atropine and currently 154/58 Although patient does have an underlying history of atrial fibrillation for which she takes chronic Eliquis. She does not have an underlying history of CAD. She is currently in a sinus rhythm at 67 bpm. Allergies Allergy/AdvReac Type Severity Reaction Status Date / Time No Known Allergies Allergy Verified 06/25/21 05:36 Home Medications Medication Instructions Recorded Confirmed Type multivitamin 1 tab PO QAM 01/04/20 06/25/21 History lisinopril 40 mg tablet 40 mg PO QAM 04/29/21 06/25/21 History apixaban 5 mg tablet (Eliquis) 5 mg PO BID 30 Days #60 tab 05/02/21 06/25/21 Rx cholecalciferol (vitamin D3) 50 50 mcg PO DAILY 05/14/21 06/25/21 History mcg (2,000 unit) capsule levothyroxine 50 mcg tablet 50 mcg PO QAM #90 tab 05/29/21 06/25/21 Rx (Synthroid) doxazosin 2 mg tablet 2 mg PO QAM #90 tab 06/13/21 06/25/21 Rx furosemide 20 mg tablet 20 mg PO QAM #90 tab 06/13/21 06/25/21 Rx metoprolol tartrate 25 mg tablet 12.5 mg PO BID #90 tab 06/13/21 06/25/21 Rx acetaminophen 500 mg tablet 1,000 mg PO Q8 14 Days #84 tab 06/26/21 Rx (Tylenol Extra Strength) cefadroxil 500 mg capsule 500 mg PO BID #14 cap 06/26/21 Rx polyethylene glycol 3350 17 gram 17 g PO DAILY PRN #5 ea 06/26/21 Rx oral powder packet (Miralax) Patient History Medical History A-fib Diastolic dysfunction Hypertension Resistant- monitored closely by PCP and nephrology, no renal artery stenosis, + nephrotic syndrome, significantly elevated in clinic, home readings currently well controlled per nephrology and PCP records Hypothyroidism Iron deficiency anemia Nephrotic syndrome follows with [place] nephrology Dr. Shepard-"secondary to primary membranous nephropathy...no CKD" Osteoarthritis Positive RICARDO (antinuclear antibody) Pulmonary nodule "There is a 7 mm soft solid nodular density in the superior segment of the left lower lobe. This is unchanged from 04/16/2020 and of low suspicion" Chest CT report 08/23/2020 Vitamin D deficiency Surgical History History of dilatation and curettage 40+ years ago History of left knee replacement 09/25/2020: SAB at L3-L4 + PNB. No issues per anesthesia postop progress note. History of right cataract surgery Hx of left cataract extraction Family History Mother Colorectal cancer, Onset Age: 87 Father , age 78 Hypertension Brother Heart disease Hypertension Denies family history of Ovarian cancer Prostate cancer Breast cancer Social History Smoking Status: Never smoker Second Hand Exposure: No; Do You Dip or Chew Tobacco: No; Tobacco Cessation Education Requested by Patient: No Hx Alcohol Use: No Hx Substance Use: No Preferred Language: Marshallese Communication Ability: Effective Visual Impairment: No Limitations Hearing Ability: Normal Traffic Coordinator Required: No Beliefs That Will Affect Care: None marital status: Current Living Situation: Spouse current occupational status: retired Other Information That Helps Us Care for You: No Feels Safe at Home: Yes Safety Concerns: Feels Safe At This Time caffeine: Yes during the past year weight has: remained stable Dental Care, Regularly: Yes Physical Activity Frequency: Does not Exercise Physical Activity Frequency Comment: can not due to physical limitations Seatbelt Use: always Sunscreen Use: Yes Assistive Devices: Walker Review of Systems Review of Systems: All systems reviewed and are unremarkable except as noted in HPI and below Denies fevers, chills, headache, nasal congestion, sore throat, cough, chest pain, shortness of breath, palpitations, orthopnea, PND, abdominal pain, nausea, vomiting, diarrhea, constipation, dysuria, hematuria, frequency, back pain, joint pain or swelling, easy bruising or bleeding, skin lesions or rashes. Physical Exam Physical Exam: General: Initially when seen, resting comfortably in bed. Awake and alert. Appeared slightly mendez/ashy and diaphoretic but with improvement of heart rate, this improved HEENT: Head is AT/NC. Buccal mucosa is moist and pink Neck: No JVD. Negative hepatojugular reflex Cardiac: Initially sinus bradycardia in the low 30s. After administration of atropine, sinus with a rate of 68 bpm Lungs: CTA without W/R/R Abdomen: Normoactive X4. Soft and nontender Extremities:Robinson wrap to right knee with indwelling Hemovac. Peripheral pulses are intact and symmetrical bilaterally. Capillary fill +2. Negative Homans' sign Neuro: A&O X4. Cranial nerves II through XII are grossly intact. No focal neuro deficits Skin: No obvious skin lesions or rashes Psych: Appropriate affect. Pleasant and cooperative Results & Data Results & Data ([facility]) Vital Signs (Past 12 Hours) Vital Signs Temp Pulse Resp BP BP Pulse Ox 06/26/21 10:41 59 L 16 165/59 H 100 06/26/21 10:26 63 18 155/60 H 100 06/26/21 07:35 36.6 C 64 18 182/72 H 96 06/26/21 05:53 189/70 H 06/26/21 04:08 36.6 C 64 16 205/62 H 94 06/26/21 00:34 65 181/76 H Laboratory Results 06/26/21 05:37 06/26/21 05:37 ECG Additional Comments: Initially, glass decorator showed a sinus bradycardia at 32 bpm Following administration of atropine, sinus rhythm at 68 bpm EKG obtained showing normal sinus rhythm. Rate 65 bpm. Normal axis. No acute ST/T wave changes. PG Care Time/CCT Total # of Minutes Spent Total Time Spent with Patient: Total time spent is greater than 50% in coordination of care (as documented) at patient's floor/unit and/or counseling patient: Coding Level of Care Code 11507 Inpt Consult Level 5 Diagnoses Sinus bradycardia R00.1 Arthritis of right knee M17.11 Hypothyroidism E03.9 Diastolic dysfunction I51.89 A-fib I48.91 Accelerated hypertension I10 Anemia D64.9
[2021-06-26] MEDS: FUROSEMIDE 20 MG TAB PO SCH (11:26)
[2021-06-26] MEDS ORDERED: MAGNESIUM SULFATE / D5W 1 GM/100 ML BAG IV ONE (11:30)
[2021-06-26] MEDS: SENNA 8.6 MG TAB PO SCH (21:26)
[2021-06-26] MEDS: APIXABAN 5 MG TABLET PO SCH (21:27)
[2021-06-27] MEDS ORDERED: traMADol HCL 50 MG TABLET PO PRN (02:37)
[2021-06-27] MEDS: ACETAMINOPHEN 500 MG TAB PO SCH ×2 (06:26→13:16)
[2021-06-27] MEDS: LEVOTHYROXINE SODIUM 50 MCG TABLET PO SCH (06:26)
[2021-06-27 07:36] LABS: Hematocrit (blood only) 28.8 % (37-47); Hemoglobin 9.7 g/dL (12.0-16.0); Mean Corpuscular Hemoglobin 32.1 pg (25-34); Mean Corpuscular Hgb Conc 33.7 g/dL (32-36); Mean Corpuscular Volume 95.4 fL (80-100); Mean Platelet Volume 10.6 fL (7.4-10.4); Platelet Count 153 K/uL (130-400); RDW Coefficient of Variation 13.3 % (11.5-14.5); Red Blood Count 3.02 M/uL (4.2-5.4); White Blood Count 5.37 K/uL (4.8-10.8)
[2021-06-27 07:56] LABS: BUN Creatinine Ratio 41.1 (10-20); Creatinine Clr Calc Pharmacy 64.9 ml/min; Est GFR (African American) 92.7 ml/min; Magnesium 1.9 mg/dl (1.7-2.4); Potassium 3.9 mmol/L (3.5-5.1)
[2021-06-27] MEDS ORDERED: METOPROLOL TARTRATE 25 MG TAB PO SCH (09:00)
--- NOTE | 2021-06-27 09:00 | Electrocardiogram Report ---
Test Reason : Blood Pressure : / mmHG Vent. Rate : 067 BPM Atrial Rate : 067 BPM P-R Int : 188 ms QRS Dur : 096 ms QT Int : 418 ms P-R-T Axes : 069 037 059 degrees QTc Int : 441 ms Normal sinus rhythm Left atrial enlargement Borderline ECG When compared with ECG of 13-MAY-2021 12:39, Vent. rate has increased BY 22 BPM Confirmed by Adarsh Deleon ([id number]) on 06/27/2021 9:00:33 AM Referred By: Eliceo Green Confirmed By:Adarsh Deleon
[2021-06-27] MEDS: MULTIVITAMIN TAB PO SCH (09:48)
[2021-06-27] MEDS: lisinopril 40 MG TAB PO SCH (09:49)
[2021-06-27] MEDS: FUROSEMIDE 20 MG TAB PO SCH (09:49)
[2021-06-27] MEDS: CHOLECALCIFEROL 1,000 UNITS 25 MCG TAB PO SCH (09:49)
[2021-06-27] MEDS: DOCUSATE SODIUM 100 MG CAP PO SCH (09:50)
[2021-06-27] MEDS: APIXABAN 5 MG TABLET PO SCH (09:50)
[2021-06-27] MEDS: DOXAZosin MESYLATE TAB 2 MG TAB PO SCH (09:50)
--- NOTE | 2021-06-27 10:14 | Orthopedic Progress Note ---
Date of Service June 27, 2021 Assessment & Plan (1) Arthritis of right knee: Plan: POD 2 Right total knee arthroplasty. Recheck pt after PT. Discussed case with Mae Caldwell PA-C (hospitalist service). PT/OT protocols. Weightbearing as tolerated. DVT prophylaxis-apixaban 5 mg p.o. twice daily; Start with tonight's dose unless otherwised advised by Med Service Pain management as written. DC planning - Pt planning for outpt PT. If patient remaining stable today, plan for possible discharge later today. Admission and Anticipated Discharge Date Admission Date: June 26, 2021 Subjective POD 2 Pt sitting up in bed awake and alert. No complaints. Comfortable. Pain controlled. States she is feeling well. No issues overnight per patient. Metoprolol restarted this AM. Earlier tachycardia (106) now down to 68. Physical Exam Physical Exam: Dressings C/D/I. Calves soft, NT. NV intact. Toes mobile. Results & Data ([facility]) Vital Signs (Past 12 Hours) Vital Signs Temp Pulse Pulse Resp BP BP Pulse Ox 06/27/21 07:12 37.2 C 68 18 181/69 H 94 06/27/21 05:00 86 165/64 H 06/27/21 03:00 36.9 C 66 20 181/71 H 94 06/27/21 01:19 52 L 06/26/21 22:54 36.8 C 61 18 155/65 H 94 Laboratory Results Laboratory Results WBC 5.37 K/uL (4.8-10.8) 06/27/21 07:12 RBC 3.02 M/uL (4.2-5.4) L 06/27/21 07:12 Hgb 9.7 g/dL (12.0-16.0) L 06/27/21 07:12 Hct 28.8 % (37-47) L 06/27/21 07:12 MCV 95.4 fL (80-100) 06/27/21 07:12 MCH 32.1 pg (25-34) 06/27/21 07:12 MCHC 33.7 g/dL (32-36) 06/27/21 07:12 RDW Std Deviation 46.0 fL (36.4-46.3) 06/27/21 07:12 RDW Coeff of Tiana 13.3 % (11.5-14.5) 06/27/21 07:12 Plt Count 153 K/uL (130-400) 06/27/21 07:12 MPV 10.6 fL (7.4-10.4) H 06/27/21 07:12 Sodium 138 mmol/L (136-145) 06/27/21 07:12 Potassium 3.9 mmol/L (3.5-5.1) 06/27/21 07:12 Chloride 108 mmol/L (98-107) H 06/27/21 07:12 Carbon Dioxide 27 mmol/L (21-32) 06/27/21 07:12 Anion Gap 3 (3-11) 06/27/21 07:12 BUN 30 mg/dl (6-23) H 06/27/21 07:12 Creatinine 0.73 mg/dl (0.6-1.2) 06/27/21 07:12 Est Cr Clr Drug Dosing 64.9 ml/min 06/27/21 07:12 Est GFR ( Amer) 92.7 ml/min 06/27/21 07:12 Est GFR (Non-Af Amer) 80.0 ml/min 06/27/21 07:12 BUN/Creatinine Ratio 41.1 (10-20) H 06/27/21 07:12 Glucose 101 mg/dl (70-99(Fasting)) H 06/27/21 07:12 POC Glucose 137 mg/dl (70-99) H 06/26/21 10:12 Calcium 8.0 mg/dl (8.5-10.1) L 06/27/21 07:12 Magnesium 1.9 mg/dl (1.7-2.4) 06/27/21 07:12 TSH 0.955 uIu/ml (0.300-4.500) 06/26/21 05:37 SARS-CoV-2, RNA, NAAT NEGATIVE (NEGATIVE) 06/25/21 Unknown Blood Type O Negative 06/25/21 05:28 Antibody Screen POSITIVE A 06/25/21 05:28 Antibody Identification Anti-D 06/25/21 05:28 Antibody ID Comment 06/25/21 05:28 Crossmatch See Detail 06/25/21 05:28
--- NOTE | 2021-06-27 15:30 | Hospitalist Progress Note ---
Date of Service June 27, 2021 Assessment & Plan (1) Sinus bradycardia: Plan: * POD #1, patient was sitting in the chair and became overly weak. She did not lose consciousness, denied dizziness or chest pain * Code purple called * Patient found to be in a sinus bradycardia with a rate of 32 bpm * athletic monitor showed NO evidence of heart block. Patient was in a sinus rhythm without atrial fibrillation * She does take chronic beta-blockade (had 12.5 mg of metoprolol that morning) * in addition, was given oxycodone for pain control * Treated with 1 mg atropine and heart rate improved to 68 bpm * Metabolic panel normal, mag level low end of normal (1.8) for which 1gram IV mag rider given * Suspect likely opiate induced in the setting of chronic beta-blockade (as g iven oxycodone 1H prior to event) * Given 0.4 mg IV Narcan and recommended withholding all opiate medications. Would advise Ultram for pain control * Moved to cardiac monitored bed * TSH ordered and normal * The overnight hours, patient has been in a sinus rhythm. Was slightly tachycardic this morning at 106. Was given her beta-sunny and heart rate has been stable in the 60s. * At this point in time, she is medically and hemodynamically stable for discharge to home. Again would avoid opiate medications (2) Anemia: Plan: * Preop hemoglobin 12.8. Hemoglobin today is 9.7 * EBL 10 cc with limited blood and Hemovac (which has since been removed as limited drainage) * given lack bleeding post-op and low blood loss, do not suspect blood loss anemia but rather dilutional as her fluid balance is +4100 * iron x30 days * FU H/H in 1 week (per PCP) (3) Arthritis of right knee: Plan: * S/p right TKA on 06/[address] Green * Uneventful perioperative course * Recommend adequate postoperative pain management (again would avoid opiates as outlined above), incentive spirometry, PT/OT, and DVT prophylaxis (patient takes chronic Eliquis and this has been continued) (4) Hypothyroidism: Plan: * Continue Synthroid. TSH normal (5) Diastolic dysfunction: Plan: * fluid balance is +4L * Does not appear to be in fulminant CHF * Echocardiogram reviewed from 07/29 showing EF of 60 to 65% with no regional wall motion abnormality (6) A-fib: Plan: * BB held given bradycardia but subsequently developed tachycardia at 106. Back on beta-blockade and heart rate controlled at 68 * Eliquis resumed by ortho. agree with this. (7) Accelerated hypertension: Plan: * BP has been running 180-200 systolic. Currently 144 systolic * Continue Cardura, lisinopril, and Lasix as prior to hospitalization * Hydralazine IV 10mg for SBP >/=180, DBP >/=110 but not utilized * Patient reports BP always elevated when in the hospital * Follow-up with PCP Plan: At this point time, patient is medically and hemodynamically stable for discharge to home. Will sign off on this patient from a medical standpoint but do not hesitate to reconsult should a problem arise. Thank you for allowing me to participate in her care Plan of care D/C Dr. Carbajal. Admission and Anticipated Discharge Date Admission Date: June 26, 2021 Subjective Patient seen on daily rounds today. Vocalizes no complaints or concerns. Has not had any dizziness, lightheadedness, near-syncope or syncope. Denies fevers, chills, chest pain, shortness of breath, abdominal pain, nausea or vomiting. Pain is adequately controlled. Tolerating the pain medication without ill effects. She has remained in a sinus rhythm. Was in the 50s overnight. Go up to 106 this morning. Her beta-sunny was resumed and her heart rate is currently 65 to 68 bpm. Review of Systems Review of Systems: All systems reviewed and are unremarkable except as noted in HPI and below Denies fevers, chills, headache, nasal congestion, sore throat, cough, chest pain, shortness of breath, palpitations, orthopnea, PND, abdominal pain, nausea, vomiting, diarrhea, constipation, dysuria, hematuria, frequency, back pain, joint pain or swelling, easy bruising or bleeding, skin lesions or rashes. Physical Exam Physical Exam: General: Resting comfortably in her bedside chair. NAD. HEENT: Head is AT/NC. Buccal mucosa is moist and pink Neck: No JVD. Negative hepatojugular reflex Cardiac: RRR with 2/6 FELIZ Lungs: CTA without W/R/R Abdomen: Normoactive X4. Soft and nontender in all quadrants. Extremities: Robinson wrap to right knee. No indwelling drains. Distal pulses are intact and symmetrical bilaterally. Capillary refill +2. Negative Homans' sign. No calf tenderness. Neuro: A&O X4. Cranial nerves II through XII are grossly intact. No focal neuro deficits Skin: No obvious skin lesions or rashes Psych: Appropriate affect. Pleasant and cooperative Results & Data Results & Data ([facility]) Vital Signs (Past 12 Hours) Vital Signs Temp Pulse Pulse Pulse Resp BP BP 06/27/21 14:38 37 C 65 20 144/58 H 06/27/21 12:00 37 C 65 20 144/58 H 06/27/21 08:00 72 06/27/21 07:12 37.2 C 68 18 181/69 H 06/27/21 05:00 86 165/64 H Pulse Ox 06/27/21 14:38 96 06/27/21 12:00 96 06/27/21 08:00 06/27/21 07:12 94 06/27/21 05:00 Laboratory Results 06/27/21 07:12 06/27/21 07:12 PG Care Time/CCT Total # of Minutes Spent Total Time Spent with Patient: Total time spent is greater than 50% in coordination of care (as documented) at patient's floor/unit and/or counseling patient: Coding Level of Care Code 02799 Inpt Consult Level 4 Diagnoses Sinus bradycardia R00.1 Anemia D64.9 Arthritis of right knee M17.11 Hypothyroidism E03.9 Diastolic dysfunction I51.89 A-fib I48.91 Accelerated hypertension I10
--- NOTE | 2021-07-01 14:48 | Discharge Summary ---
Date of Service July 01, 2021 Admission HPI Per Admitting Provider Patient is a 75 year old female who complains of right knee pain, presents for pre-op evaluation prior to a right total knee replacement by Dr Green at [facility]. She complains of pain and stiffness in her right knee. Currently the patient states that the symptoms are moderate-severe and describes it as sharp and throbbing. Her symptoms are aggravated by ascending stairs, daily activities, first steps while awake walking. she is currently ambulating with a cane secondary to her pain. unable to take NSAIDs due to being on anticoagulants. Principal Diagnosis Right Knee Osteoarthritis Discharge Data Allergies Allergy/AdvReac Type Severity Reaction Status Date / Time No Known Allergies Allergy Verified 06/25/21 05:36 Consultations 06/26/21 10:18 Consult Hospitalist Routine Procedures Performed Operation Date: 06/25/21 07:15 Actual Procedures p Right Total Knee Arthroplasty, Cemented(Right) - Eliceo Green DO Ordered Studies 06/25/21 05:00 US - OR guided needle placemen Routine Hospital Course (1) Arthritis of right knee: Date of Service June 26, 2021 Assessment & Plan (1) Arthritis of right knee: Plan: Right total knee arthroplasty. Paulo butler called for syncopal episode. Patient is being moved down to [facility] telemetry for further monitoring. Plan to admit. Likely cause was receiving pain medication along with her cardiac meds. Please see medical consult. PT/OT protocols. Weightbearing as tolerated. DVT prophylaxis-apixaban 5 mg p.o. twice daily; Start with tonight's dose unless otherwised advised by Med Service Pain management. Oxycodone dc'd. Tramadol ordered. DC planning - Pt planning for outpt PT. Admission and Anticipated Discharge Date Admission Date: June 25, 2021 Subjective POD [address] with Physical Therapist. Pt appears to be ambulating well. Returns to room and is sitting her chair at the bedside. Pain controlled. No complaints. Addendum: I was discussing the patient's case with Sarah Caldwell PA-C concerning her hypertension. At that point in time, a paulo butler was called for the patient's room. Upon entering the room, Dr. Jonatan Fontaine, Minal Workman PA-C, and Sarah Caldwell PA-C along with nursing staff were attending to the patient. Patient was pale, awake and conversant. Denying CP, SOB. Patient stating that she was sitting in her chair and began to get fairly lightheaded. She apparently called for help which at that point patient appeared to be having a syncopal episode. Paulo butler team arrived quickly. Physical Exam Physical Exam: Dressings are clean, dry, and intact. Calves are soft and nontender. Neurovascular is intact. Toes are mobile. She has good dorsiflexion plantarflexion of the right foot. Hemovac drainage was 50 mL from the previous shift. Please see hospitalist service note for further exam code luke. Results & Data ([facility]) Vital Signs (Past 12 Hours) Vital Signs Temp Pulse Resp BP BP Pulse Ox 06/26/21 07:35 36.6 C 64 18 182/72 H 96 06/26/21 05:53 189/70 H 06/26/21 04:08 36.6 C 64 16 205/62 H 94 06/26/21 00:34 65 181/76 H 06/25/21 22:24 36.7 C 60 18 200/78 H 95 Laboratory Results Laboratory Results WBC 8.86 K/uL (4.8-10.8) 06/26/21 05:37 RBC 3.24 M/uL (4.2-5.4) L 06/26/21 05:37 Hgb 10.3 g/dL (12.0-16.0) L 06/26/21 05:37 Hct 30.6 % (37-47) L 06/26/21 05:37 MCV 94.4 fL (80-100) 06/26/21 05:37 MCH 31.8 pg (25-34) 06/26/21 05:37 MCHC 33.7 g/dL (32-36) 06/26/21 05:37 Plt Count 179 K/uL (130-400) 06/26/21 05:37 Sodium 138 mmol/L (136-145) 06/26/21 05:37 Potassium 3.7 mmol/L (3.5-5.1) 06/26/21 05:37 Chloride 106 mmol/L (98-107) 06/26/21 05:37 Carbon DioxideD 27 mmol/L (21-32) 06/26/21 05:37 Anion Gap 5 (3-11) 06/26/21 05:37 BUN 33 mg/dl (6-23) H 06/26/21 05:37 Creatinine 0.81 mg/dl (0.6-1.2) 06/26/21 05:37 Est Cr Clr Drug Dosing 58.5 ml/min 06/26/21 05:37 Est GFR ( Amer) 81.8 ml/min 06/26/21 05:37 Est GFR (Non-Af Amer) 70.5 ml/min 06/26/21 05:37 BUN/Creatinine Ratio 40.7 (10-20) H 06/26/21 05:37 Glucose 98 mg/dl (70-99(Fasting)) 06/26/21 05:37 Calcium 7.9 mg/dl (8.5-10.1) L 06/26/21 05:37 SARS-CoV-2, RNA, NAAT NEGATIVE (NEGATIVE) 06/25/21 Unknown Blood Type O Negative 06/25/21 05:28 Antibody Screen POSITIVE A 06/25/21 05:28 Antibody IdentificationD Anti-D 06/25/21 05:28 Antibody ID Comment 06/25/21 05:28 Crossmatch See Detail 06/25/21 05:28 Impressions Knee X-Ray 06/25/21 09:09 TWO VIEWS RIGHT KNEE CLINICAL HISTORY: Postoperative examination. FINDINGS: AP and crosstable lateral portable views of the right knee are obtained. A right knee arthroplasty is in near anatomic alignment. There has been undersurface remodeling of the patella. No acute fracture is seen. There are expected postoperative changes around the knee including skin clips, a surgical drain, soft tissue edema, and subcutaneous gas. IMPRESSION: Expected postoperative changes status post right knee arthroplasty. No acute fracture is seen. ADDENDUM 06/27/21 1311Addendum June 27, 2021 13:09 I have spoken to Hospitalist service. Pt doing well and remaining stable. Continues to progress with her PT. Currently getting back into bed. No complaints. Plan for dc to home today. Addendum Signed By: <Electronically signed by Henrique Palomo PA-C> 06/27/21 131 Addendum Cosigned By: <Electronically signed by Matt Holden M.D.> 06/27/21 1726 Created: 06/27/21 Date of Service June 27, 2021 Assessment & Plan (1) Arthritis of right knee: Plan: POD 2 Right total knee arthroplasty. Recheck pt after PT. Discussed case with Mae Caldwell PA-C (hospitalist service). PT/OT protocols. Weightbearing as tolerated. DVT prophylaxis-apixaban 5 mg p.o. twice daily; Start with tonight's dose unless otherwised advised by Med Service Pain management as written. DC planning - Pt planning for outpt PT. If patient remaining stable today, plan for possible discharge later today. Admission and Anticipated Discharge Date Admission Date: June 26, 2021 Subjective POD 2 Pt sitting up in bed awake and alert. No complaints. Comfortable. Pain controlled. States she is feeling well. No issues overnight per patient. Metoprolol restarted this AM. Earlier tachycardia (106) now down to 68. Physical Exam Physical Exam: Dressings C/D/I. Calves soft, NT. NV intact. Toes mobile. Results & Data ([facility]) Vital Signs (Past 12 Hours) Vital Signs Temp Pulse Pulse Resp BP BP Pulse Ox 06/27/21 07:12A 37.2 C 68 18 181/69 H 94 06/27/21 05:00 86 165/64 H 06/27/21 03:00 36.9 C 66 20 181/71 H 94 06/27/21 01:19 52 L 06/26/21 22:54 36.8 C 61 18 155/65 H 94 Laboratory Results Laboratory Results WBC 5.37 K/uL (4.8-10.8) 06/27/21 07:12 RBC 3.02 M/uL (4.2-5.4) L 06/27/21 07:12 Hgb 9.7 g/dL (12.0-16.0) L 06/27/21 07:12 Hct 28.8 % (37-47) L 06/27/21 07:12 MCV 95.4 fL (80-100) 06/27/21 07:12 MCH 32.1 pg (25-34) 06/27/21 07:12 MCHC 33.7 g/dL (32-36) 06/27/21 07:12 RDW Std Deviation 46.0 fL (36.4-46.3) 06/27/21 07:12 RDW Coeff of Tiana 13.3 % (11.5-14.5) 06/27/21 07:12 Plt Count 153 K/uL (130-400) 06/27/21 07:12 MPV 10.6 fL (7.4-10.4) H 06/27/21 07:12 Sodium 138 mmol/L (136-145) 06/27/21 07:12 Potassium 3.9 mmol/L (3.5-5.1) 06/27/21 07:12 Chloride 108 mmol/L (98-107) H 06/27/21 07:12 Carbon Dioxide 27 mmol/L (21-32) 06/27/21 07:12 Anion Gap 3 (3-11) 06/27/21 07:12 BUN 30 mg/dl (6-23) H 06/27/21 07:12 Creatinine 0.73 mg/dl (0.6-1.2) 06/27/21 07:12 Est Cr Clr Drug Dosing 64.9 ml/min 06/27/21 07:12 Est GFR ( Amer) 92.7 ml/min 06/27/21 07:12 Est GFR (Non-Af Amer) 80.0 ml/min 06/27/21 07:12 BUN/Creatinine Ratio 41.1 (10-20) H 06/27/21 07:12 Glucose 101 mg/dl (70-99(Fasting)) H 06/27/21 07:12 POC Glucose 137 mg/dl (70-99) H 06/26/21 10:12 Calcium 8.0 mg/dl (8.5-10.1) L 06/27/21 07:12 Magnesium 1.9 mg/dl (1.7-2.4) 06/27/21 07:12 TSH 0.955 uIu/ml (0.300-4.500) 06/26/21 05:37 SARS-CoV-2, RNA, NAAT NEGATIVE (NEGATIVE) 06/25/21 Unknown Blood Type O Negative 06/25/21 05:28 Antibody Screen POSITIVE A 06/25/21 05:28 Antibody Identification Anti-D 06/25/21 05:28 Antibody ID Comment 06/25/21 05:28 Crossmatch See Detail 06/25/21 05:28 Date of Service June 27, 2021 Assessment & Plan (1) Sinus bradycardia: Plan: * POD #1, patient was sitting in the chair and became overly weak. She did not lose consciousness, denied dizziness or chest pain * Code purple called * Patient found to be in a sinus bradycardia with a rate of 32 bpm * pvc monitor showed NO evidence of heart block. Patient was in a sinus rhythm without atrial fibrillation * She does take chronic beta-blockade (had 12.5 mg of metoprolol that morning) * in addition, was given oxycodone for pain control * Treated with 1 mg atropine and heart rate improved to 68 bpm * Metabolic panel normal, mag level low end of normal (1.8) for which 1gram IV mag rider given * Suspect likely opiate induced in the setting of chronic beta-blockade (as given oxycodone 1H prior to event) * Given 0.4 mg IV Narcan and recommended withholding all opiate medications. Would advise Ultram for pain control * Moved to cardiac monitored bed * TSH ordered and normal * The overnight hours, patient has been in a sinus rhythm. Was slightly tachycardic this morning at 106. Was given her beta-sunny and heart rate has been stable in the 60s. * At this point in time, she is medically and hemodynamically stable for discharge to home. Again would avoid opiate medications (2) Anemia: Plan: * Preop hemoglobin 12.8. Hemoglobin today is 9.7 * EBL 10 cc with limited blood and Hemovac (which has since been removed as limited drainage) * given lack bleeding post-op and low blood loss, do not suspect blood loss a nemia but rather dilutional as her fluid balance is +4100 * iron x30 days * FU H/H in 1 week (per PCP) (3) Arthritis of right knee: Plan: * S/p right TKA on 06/[address] Green * Uneventful perioperative course * Recommend adequate postoperative pain management (again would avoid opiates as outlined above), incentive spirometry, PT/OT, and DVT prophylaxis (patient takes chronic Eliquis and this has been continued) (4) Hypothyroidism: Plan: * Continue Synthroid. TSH normal (5) Diastolic dysfunction: Plan: * fluid balance is +4L * Does not appear to be in fulminant CHF * Echocardiogram reviewed from 07/29 showing EF of 60 to 65% with no regional wall motion abnormality (6) A-fib: Plan: * BB held given bradycardia but subsequently developed tachycardia at 106. Back on beta-blockade and heart rate controlled at 68 * Eliquis resumed by ortho. agree with this. (7) Accelerated hypertension: Plan: * BP has been running 180-200 systolic. Currently 144 systolic * Continue Cardura, lisinopril, and Lasix as prior to hospitalization * Hydralazine IV 10mg for SBP >/=180, DBP >/=110 but not utilized * Patient reports BP always elevated when in the hospital * Follow-up with PCP Plan: At this point time, patient is medically and hemodynamically stable for discharge to home. Total Time Total Time Spent Total Time Spent (In Minutes): 10 Discharge Plan Discharge Items Patient Disposition: Home - Self-Care Reason For Visit: Right Knee Osteoarthritis Discharge Diagnosis: Right Knee Osteoarthritis Activity: Per Instructions section Weightbearing: Right weightbearing Non-emergency contact: Surgeon Call non-emergency contact if: you have any medication questions, your pain is not controlled, your temperature is above 101.5, your wound has increased redness and your wound has increased drainage Follow-up/Referrals: Tiff Montero DO [Primary Care Provider] - Diet: Regular Addtl Attending Provider Instructions: ACTIVITY RECOMMENDATIONS: SELF CARE INSTRUCTIONS AFTER TOTAL KNEE REPLACEMENT A. You may need to continue a physical therapy program after discharge from the hospital. There are several options available to you. Your doctor will assist you in selecting the best one for you. 1. An out-patient facility 2 to 3 times a week for therapy or home therapy. 2. Continue working on all exercises taught to you in the hospital. Your goals should be to increase bending of your knee to 90 degrees and beyond and to fully straighten your knee. B. You may progress at your own pace from walking with a walker or crutches to a cane; then to no assistive devices. C. Make walking a part of your daily routine. Be up as much as comfortable with rest periods throughout the day. Rest with leg elevation is very important. Use the ice wrap frequently for the first 3-4 weeks. D. There are no restrictions on activities. You may ride in a car, shop, par ticipate in photography coordinator and all social activities. E. Wear the long elastic stockings (JASMEET hose) 20 hours a day for 2 weeks after surgery. They can be removed several times a day for laundering and for a bath. F. You may shower, no tub baths until cleared by your doctor. SPECIAL CARE INSTRUCTIONS: VERY IMPORTANT TO READ AND REVIEW A. There are a few signs you need to watch for after you are home. Call [facility] if you notice any of the followin. Increased severe knee pain. Some pain is expected especially when you exercise. 2. Increased swelling in your leg or knee; pain or swelling of the calf muscle in either lower leg. 3. Any fluid drainage from the incision. 4. Shortness of breath or chest pain. B. Please call [facility] at if you have any concerns or questions about your operation or recovery. The doctor or his nurse will return your call promptly. C. You must take antibiotics before dental work, bladder, bowel or other surgery. Your doctor will provide you with a permanent care to carry describing this precaution. IMPORTANT: * REMEMBER TO TAKE APIXABAN 5MG , TWICE DAILY UNLESS OTHERWISE DIRECTED. THIS IS YOUR BLOOD THINNER. * CALL IF INCREASED PAIN, REDNESS, DRAINAGE OR FEVER GREATER THAT 101. * WEAR JASMEET HOSE 20 HOURS PER DAY FOR 4 WEEKS. * ROLY dressing - This is a large suction dressing covering your incision. This will help pull any excess drainage from the wound and allow your incision to heal properly. You may shower with this if you can keep the unit outside of the shower. If any bleeding or leakage is noted please call your doctor's office. This will remain on your incision for 7 days and then should be removed. This can be done yourself or by the home nursing staff if applicable. The entire unit is disposable once removed. Once removed, keep incision clean and dry. If redness or drainage is noted, please call your surgeon. . FOLLOW UP VISIT: If appointment is not already scheduled: Please call [facility] to make a follow-up appointment for 2 weeks after your surgery at . Addtl Clinical Engineering Director Provider Instructions: -Your heart rate dropped following surgery which was likely a combination of your metoprolol and opiate medication -Your heart rate has improved even with being back on your beta-sunny (metoprolol) -For pain, Ultram has been ordered (which will not affect your heart rate) -Your blood count did drop slightly (which is likely related to surgery). You have been started on Iron Supplementation to take for 30 days -iron is a building blood of blood -Avoid taking iron with dairy as this may block the absorption. Recommend taking with a little bit of vitamin C or a vitamin C supplement -Iron may be constipating. He has been started on a bowel regimen to help with this -you need to have your blood count repeated in 1 week (follow up with your Family doctor for this) Pending Studies at Discharge: No Stand-Alone Forms: My [facility], Smoking Cessation Medications and DC Order Prescriptions: New acetaminophen [Tylenol Extra Strength] 500 mg Tablet 1,000 mg PO Q8 14 Days Qty: 84 RF: 0 polyethylene glycol 3350 [Miralax] 17 gram powder in packet 17 g PO DAILY PRN (Reason: constipation) Qty: 5 RF: 0 cefadroxil 500 mg capsule 500 mg PO BID Qty: 14 RF: 0 ferrous sulfate 325 mg (65 mg iron) tablet 325 mg PO DAILY Qty: 30 RF: 0 Continued Eliquis 5 mg tablet 5 mg PO BID 30 Days Qty: 60 RF: 5 levothyroxine [Synthroid] 50 mcg tablet 50 mcg PO QAM Qty: 90 RF: 1 doxazosin 2 mg tablet 2 mg PO QAM Qty: 90 RF: 3 furosemide 20 mg tablet 20 mg PO QAM Qty: 90 RF: 3 metoprolol tartrate 25 mg tablet 12.5 mg PO BID Qty: 90 RF: 3 cholecalciferol (vitamin D3) 50 mcg (2,000 unit) capsule 50 mcg PO DAILY RF: 0 multivitamin Tablet 1 tab PO QAM RF: 0 lisinopril 40 mg tablet 40 mg PO QAM RF: 0 Discharge Orders: Discharge Order (Routine); Ordered 06/27/21 Ordered By: Henrique Palomo Admission Data Admit Date/Time: 06/26/21 10:30 Attending Provider: Eliceo Green Admit Provider: Eliceo Green Primary Care Provider: Tiff Montero Other Providers: Jonatan Fontaine Other Interventions: Discharge Summary Assessment (RN) Last Done: 06/27/21 14:38
== END 2021-06-27 15:45 | disposition home or self-care (01) | DRG 470 ==
LOC: ASU 04:59 → 3E 04:59 → 2N 06-26 10:58